=== PATIENT | male | born 1950 | race Asian ===

== ENCOUNTER 2021-11-30 00:45 | Day surgery (SDC) | payer OTHER, SELFPAY ==
[2021-11-16 13:34] VITALS: BMI 23.1
--- NOTE | 2021-11-29 17:38 | PM.HPGS ---
History of Present Illness History of Present Illness Consent: Risks, benefits, and alternatives have been discussed and questions answered. Patient agrees to proceed with procedure. Chief complaint: anemia, Hx of colon cancer Narrative: Simón Joseph is a 71 year old male referred for colon cancer screening. He has a history of colon cancer, having had a sigmoid colon resected in the past. Two polyps removed at the time of his last colonoscopy 4 years ago. He has also been found to be anemic. His hemoglobin is 10.6 now. Iron stores are adequate Review of Systems Review of Systems: All systems reviewed & are unremarkable except as noted in HPI and below PMFSH Past Medical History Medical History Afib Coronary artery disease involving [place] heart without angina pectoris Elevated liver function tests Hyperlipidemia Hyperproteinemia Hypertension Lupus anticoagulant positive Polyp of colon Superior mesenteric artery stenosis Type 2 diabetes mellitus with diabetic neuropathy, without long-term current use of insulin Surgical History Surgical History S/P CABG (coronary artery bypass graft) Family History Family History Father Diabetes mellitus Hypertension Mother Hypertension Social History Social History Smoking status: Current every day smoker Tobacco type: cigars Alcohol intake: never Drinks per week: 2 Substance use: never Substance use type: does not use Living arrangements: with family Gender identity (if verbalized by the patient): Male Spiritual care concerns: No Agree to blood products: Yes Meds Home Medications and Allergies Home Medications Medication Instructions Recorded Confirmed Type blood sugar diagnostic (Contour #100 ea 01/29/19 11/30/21 Rx Test Strips) blood-glucose meter (Contour Meter) #1 ea 01/29/19 11/30/21 Rx atorvastatin 80 mg tablet 80 mg PO DAILY #90 tabs 02/10/19 11/30/21 Rx ascorbic acid (vitamin C) 500 mg 500 mg PO DAILY 04/25/19 11/30/21 History tablet aspirin 81 mg tablet,delayed 81 mg PO DAILY 04/25/19 11/30/21 History release (Enteric Coated Aspirin) cholecalciferol (vitamin D3) 50 2,000 unit PO DAILY 04/25/19 11/30/21 History mcg (2,000 unit) chewable tablet kuypwrnmsxqb-qgxzwggn-yjravk tablet 1 tablet PO DAILY 04/25/19 11/30/21 History ferrous sulfate 325 mg (65 mg See Rx Instructions .Route 09/14/20 11/30/21 Rx iron) tablet .COMPLEX #90 tabs duloxetine 60 mg capsule,delayed See Rx Instructions .Route 10/03/21 11/30/21 Rx release .COMPLEX #90 caps duloxetine 30 mg capsule,delayed See Rx Instructions .Route 10/04/21 11/30/21 Rx release .COMPLEX #90 caps Allergies Allergy/AdvReac Type Severity Reaction Status Date / Time No Known Allergies Allergy Verified 11/30/21 10:56 Exam Const: General: alert Orientation/consciousness: patient oriented x3 Resp: Auscultation: clear to auscultation bilaterally Cardio: Rhythm: regular rhythm GI: GI Palp: Yes Soft to palpation and No Tenderness to palpation present (GI) Neuro: General: patient oriented x3 Assessment and Plan Assessment and plan (1) History of colon cancer: Code(s): Z85.038 - Personal history of other malignant neoplasm of large intestine Status: Acute Assessment and Plan: Colonoscopy with possible biopsy or polypectomy or cautery or injection of substances. (2) Anemia: Code(s): D64.9 - Anemia, unspecified Status: Acute Assessment and Plan: EGD with possible biopsy or dilatation or cautery.
[2021-11-30 10:59] VITALS: BP 154/74; PULSE 92; RESP 16; TEMP 36.6; O2SAT 100
[2021-11-30] MEDS: LACTATED RINGERS 1,000 ML 150 ML IV CONT (11:10)
--- NOTE | 2021-11-30 11:12 | SUR.PREOP ---
PT NOT ON DIABETIC MEDICATION, NO BLOOD GLUCOSE STICK PERFORMED
--- NOTE | 2021-11-30 11:28 | WPDANESEPPF ---
Anes - Initial Pre Proc Eval Procedure: Operation Date: 11/30/21 13:45 Proposed Procedures p Esophagogastroduodenoscopy & Colonoscopy - Lázaro Roach MD Date/Time: 11/30/21 11:28 Surgeon: Lázaro Roach MD Pre Op Diagnosis: anemia, Hx of colon cancer Patient Data Age: 71 Gender: M Height: 1.83 m Weight: 76.9 kg Last Vital Signs Temp 97.8 F 11/30/21 10:59 Pulse 92 11/30/21 10:59 Resp 16 11/30/21 10:59 BP 154/74 H 11/30/21 10:59 Pulse Ox 100 11/30/21 10:59 O2 Del Method Room Air 11/30/21 10:59 Allergies Allergy/AdvReac Type Severity Reaction Status Date / Time No Known Allergies Allergy Verified 11/30/21 10:56 Home Medications Medication Instructions Recorded Confirmed Type blood sugar diagnostic (Contour #100 ea 01/29/19 11/30/21 Rx Test Strips) blood-glucose meter (Contour Meter) #1 ea 01/29/19 11/30/21 Rx atorvastatin 80 mg tablet 80 mg PO DAILY #90 tabs 02/10/19 11/30/21 Rx ascorbic acid (vitamin C) 500 mg 500 mg PO DAILY 04/25/19 11/30/21 History tablet aspirin 81 mg tablet,delayed 81 mg PO DAILY 04/25/19 11/30/21 History release (Enteric Coated Aspirin) cholecalciferol (vitamin D3) 50 2,000 unit PO DAILY 04/25/19 11/30/21 History mcg (2,000 unit) chewable tablet afjqczmpjbgr-qftlqlom-tdwmug tablet 1 tablet PO DAILY 04/25/19 11/30/21 History ferrous sulfate 325 mg (65 mg See Rx Instructions .Route 09/14/20 11/30/21 Rx iron) tablet .COMPLEX #90 tabs duloxetine 60 mg capsule,delayed See Rx Instructions .Route 10/03/21 11/30/21 Rx release .COMPLEX #90 caps duloxetine 30 mg capsule,delayed See Rx Instructions .Route 10/04/21 11/30/21 Rx release .COMPLEX #90 caps Patient hx anesthesia problems: none Family hx anesthesia problems: none Results Review: All pre-operative results and documents have been reviewed as part of the pre-operative evaluation. [facility] Past Medical History Medical History (Updated 11/10/21 @ 09:11 by Conchita Prakash, DO) Afib Coronary artery disease involving [place]wi[place]ayp heart without angina pectoris Elevated liver function tests Hyperlipidemia Hyperproteinemia Hypertension Lupus anticoagulant positive Polyp of colon Superior mesenteric artery stenosis Type 2 diabetes mellitus with diabetic neuropathy, without long-term current use of insulin Surgical History Surgical History (Updated 11/09/21 @ 15:38 by Conchita Prakash, DO) S/P CABG (coronary artery bypass graft) Family History Family History Father Diabetes mellitus Hypertension Mother Hypertension Social History Social History Smoking status: Current every day smoker Tobacco type: cigars Alcohol intake: never Drinks per week: 2 Substance use: never Substance use type: does not use Living arrangements: with family Gender identity (if verbalized by the patient): Male Spiritual care concerns: No Agree to blood products: Yes Anes - Eval Final PreProcedure Day of Procedure 11/30/21 11:28 Patient weight: normal Heart: regular rate and rhythm Lungs: clear to auscultation Airway: Mallampati scale class II Neurological: alert and oriented Last oral intake: >/= 8 hours ASA classification: III Emergent: no Anesthetic plan: proceed Anesthesia type and monitoring: general GIVS and standard monitoring Results Review: All pre-operative results and documents have been reviewed as part of the pre-operative evaluation. Informed Consent: The patient's anesthetic plan and its attendant risks and benefits were discussed with the patient/family/POA. Questions were solicited and answers provided to the satisfaction of the patient/family/POA.
--- NOTE | 2021-11-30 11:54 | SUR.OPER ---
EGD START 1141, END 1144 SIGMOIDOSCOPY START 1151, END 1152
[2021-11-30 11:56] VITALS: BP 122/75; PULSE 74; RESP 22; O2SAT 100
[2021-11-30 12:06] VITALS: BP 132/82; PULSE 73; RESP 18; O2SAT 100
[2021-11-30 12:16] VITALS: BP 145/84; PULSE 73; RESP 17; O2SAT 100
== END 2021-11-30 12:24 | disposition home or self-care (01) ==
PROVIDERS: PCP Family Medicine; Visit Provider Internal Medicine Gastroenterology
PROC: 0DJ08ZZ Inspection of Upper Intestinal Tract, Via Natural or Artificial Opening Endoscopic (ICD-10-PCS; CPT 43235; principal; 2021-11-30 13:45)
DX: Z12.11 Encounter for screening for malignant neoplasm of colon (principal); K21.9 Gastro-esophageal reflux disease without esophagitis; K29.70 Gastritis, unspecified, without bleeding; D64.9 Anemia, unspecified; Z85.038 Personal history of other malignant neoplasm of large intestine; I48.91 Unspecified atrial fibrillation; I25.10 Atherosclerotic heart disease of native coronary artery without angina pectoris; E78.5 Hyperlipidemia, unspecified; I10 Essential (primary) hypertension; E11.40 Type 2 diabetes mellitus with diabetic neuropathy, unspecified; Z95.1 Presence of aortocoronary bypass graft; F17.290 Nicotine dependence, other tobacco product, uncomplicated; Z79.82 Long term (current) use of aspirin
CPT/HCPCS: 43239; G0104; 87081; J2704; J7120

== ENCOUNTER 2024-03-14 01:26 | Day surgery (SDC) | payer MEDICARE, SELFPAY ==
--- NOTE | 2024-03-07 09:48 | PC.NURSE ---
Report to the Outpatient Waiting Room, entrance under the green pavilion located off [facility], at time _10 AM on date _03/14/24 . Planned Procedure Time: _1200 NOON .? Time changes happen often and if your time is changed the preop area will call you the afternoon before. - You and your visitor will be asked to self-screen and do not enter if you have any COVID symptoms. Please call surgeon if you need to reschedule. - A mask is optional within the hospital at this time. Patients may have clear liquids (water, carbonated beverages, clear teas, apple juice) until 3 hours prior to surgery( 9 AM) with a maximum of 20 ounces. - No food from midnight until time of surgery and no smoking. This includes no chewing gum, candy or mints. Take only the following medications with a SIP of water on the morning of surgery: _DULOXETINE,HYDROCODONE IF NEEDED FOR PAIN,METOPROLOL,PREGABALIN DO NOT STOP ANY OF YOUR OTHER PRESCRIPTION MEDICATIONS PRIOR TO SURGERY EXCEPT THE FOLLOWING Medications to discontinue per physician HOLD ALL VITAMINS AND SUPPLEMENTS 3 DAYS PRE OP .LAST DOSE 03/10/24. ___ASPIRIN PER DR JIMENEZ Please no make-up, nail turkmen, hairspray, perfume, deodorant, or body powder the day of surgery.? No jewelry (including any body piercings) or valuables the day of surgery, leave them at home.? Please take a shower or bath the night before, or the morning of, surgery with an antibacterial soap.? Wear comfortable, loose fitting clothing.? Children are encouraged to wear pajamas. - Jewelry must be removed prior to entering the operating room.? Rings and piercings that are not removed may be cut off. - The hospital will not accept responsibility for valuables.? - Please leave all valuables, including medications, at home the day of surgery. If you are going home after surgery, a licensed independent driver must drive you home.? - NO public transportation without another adult if you receive anesthesia. - We recommend that an adult stay with you for 24 hours following discharge. - We also recommend that you do not drive, make important decision, drink alcoholic beverages, or take any drugs that were not prescribed by your health care provider for at least 24 hours after your discharge time. Follow any additional instructions given to you from your surgeon. Telephone instructions given to ___PATIENT and asked if any additional questions and then verbalized understanding. Patient advised to call surgeon office or pre surgery nurse liaison [phone] if any additional questions.
[2024-03-07 10:13] VITALS: BMI 20.3
[2024-03-14] VITALS (8 sets, daily range): BP systolic 124–144; BP diastolic 60–69; PULSE 68–74; RESP 10–18; TEMP 36.3–37.7; O2SAT 98–100
--- OUTSIDE RECORDS SUMMARY | 2024-03-14 01:34 | XMS_ITS | Clinical Summary ---
Author Organization [facility] Address [address] [place] [address] Care Team Providers Care Manufacturing Process Engineer Name Role Phone DwainConchita Primary Care Provider Allergies No known active allergies Medications metFORMIN (GLUCOPHAGE) 1,000 mg tablet Take 1,000 mg by mouth 2 times daily with meals. Active LORazepam (ATIVAN) 0.5 mg tablet Take 0.5 mg by mouth every 6 hours as needed for Anxiety. Active simvastatin (ZOCOR) 20 mg tablet Take 20 mg by mouth daily. Active pregabalin (LYRICA) 100 mg Capsule Take 100 mg by mouth daily. Active traZODone (DESYREL) 50 mg tablet Take 50 mg by mouth daily at bedtime. Active Active Problems Problem Noted Date Diagnosed Date High cholesterol 06/18/2017 DM (diabetes mellitus), type 1 06/18/2017 Family History Medical History Relation Name Comments Diabetes Father High Cholesterol Father Hypertension Father Relation Name Status Comments Father Social History Tobacco Use Types Packs/Day Years Used Date Smoking Tobacco: Former Cigarettes 1 35 0 06/19/1975 - 06/18/2010 Alcohol Use Standard Drinks/Week Comments No 0 (1 standard drink = 0.6 oz pur e alcohol) occasionally Sex and Gender Information Value Date Recorded Sex Assigned at Not on file Legal Sex Male 9:51 AM CDT Gender Identity Not on file Sexual Orientation Not on file Last Filed Vital Signs Vital Sign Reading Time Taken Comments Blood Pressure 139/81 06/18/2017 1:53 PM CDT Pulse 75 06/18/2017 1:53 PM CDT Temperature 36.8 ??C (98.2 ??F) 06/18/2017 1:53 PM CD T Respiratory Rate 18 06/18/2017 1:53 PM CDT Oxygen Saturation 98% 06/18/2017 1:53 PM CDT Inhaled Oxygen Concentration - - Weight 86.6 kg (191 lb) 06/18/2017 1:53 PM CDT Height 182.9 cm (6') 06/18/2017 1:53 PM CDT Body Mass Index 25.9 06/18/2017 1:53 PM CDT Plan of Treatment Health Maintenance Due Date Last Done Comments DIABETES ANNUAL FOOT EXAM 09/17/1969 DIABETES ANNUAL RETINAL EXAM 09/17/1969 DIABETES MICROALBUMIN ANNUAL SCREEN 09/17/1969 LDL CHOLESTEROL ANNUAL 09/17/1969 PNEUMOCOCCAL VACCINE 65+ YEARS (1 of 2 - PCV) 09/17/18 71 COLORECTAL SCREENING 09/17/1996 Colorectal Cancer Screening 09/17/1996 FIT-DNA Q 3 years 09/17/1996 FIT/FOBT Q 1 year 09/17/1996 Flex Sig/CT Colonography Q 5 years 09/17/1996 ZOSTER VACCINE (1 of 2) 09/17/2001 RSV VACCINE (60+ or ) (1 - Risk 60-74 years 1-dose series) 2011 DIABETES HBA1C Q 6 MONTHS 10/06/2022 04/08/2022 INFLUENZA VACCINE (#1) 2023 12/05/2019 DTAP/TDAP/TD VACCINES (2 - Td or Tdap) 12/03/2029 Insurance [facility] [employer] Care Teams Manufacturing Process Engineer Relationship Specialty Start Date End Date Conchita Prakash DO [address] [place] [id number] PCP - General Family Practice 06/18/17
--- OUTSIDE RECORDS SUMMARY | 2024-03-14 01:34 | XMS_ITS | Encounter Summary ---
Author Organization [facility] Address [address] [place] [address]. [place] [address] [place] [address] Care Team Providers Care Marine Scientist Name Role Phone Conchita Prakash DO Primary Care Provider [phone] Zack Mota MD Primary Care Provider [phone] Reason for Visit * Reason Onset Date Comments Hospital Follow Up 12/15/2019 Encounter Details Date Type Department Care Team (Late st Contact Info) Description 12/15/2019 Hospital Follow-up Call [facility] Care Management [address] [place] [address] Christy San, RN Hospital Follow Up Social History Tobacco Use Types Packs/Day Years Used Date Smoking Tobacco: Former Cigarettes Q uit: 02/01/2019 Smokeless Tobacco: Never Alcohol Use Standard Drinks/Week Comments No 0 (1 standard drink = 0.6 oz pur e alcohol) Humiliation, Afraid, Rape, and Kick questionnair e Answer Date Recorded Within the last year, have y ou been afraid of your partner or ex-partner? No 12/04/2019 Within the last year, have y ou been humiliated or emotionally abused in other ways by your partner or ex-partner? No Within the last year, have y ou been kicked, hit, slapped, or otherwise physically hurt by your partner or ex-partner? No 12/04/2019 Within the last year, have y ou been raped or forced to have any kind of sexual activity by your partner or ex-partner? No 12/04/2019 Social Connection and Isolat ion Panel [NHANES] Answer Date Recorded In a typical week, how many times do you talk on the phone with family, friends, or neighbors? More than three times a week 12/04/2019 How often do you get togethe r with friends or relatives? More than three times a week 12/04/2019 How often do you attend chur ch or lutheran services? More than 4 times per year 12/04/2019 Do you belong to any clubs o r organizations such as catholic groups, unions, fraternal or athletic groups, or school groups? No 12/04/2019 How often do you attend meet ings of the clubs or organizations you belong to? Never 12/04/2019 Are you , , di vorced, , never , or living with a partner? 12/04/2019 AUDIT-C Answer Date Recorded Frequency of Alcohol Consumption Never 02/06/2019 Average Number of Drinks Not on file 019 Frequency of Binge Drinking Not on file 01/13 Overall Financial Resource Strain (CARDIA) Answe r Date Recorded How hard is it for you to pa y for the very basics like food, housing, medical care, and heating? Not hard at all 12/04/2019 [facility] - Occupational Stress Questionnaire Answer Date Recorded Do you feel stress - tense, restless, nervous, or anxious, or unable to sleep at night because your mind is troubled all the time - these days? Not at all 12/04/2019 Exercise Vital Sign Answer Date Recorde d On average, how many days pe r week do you engage in moderate to strenuous exercise (like a brisk walk)? 3 days 12/04/2019 On average, how many minutes do you engage in exercise at this level? 40 min 12/04/2019 Hunger Vital Sign Answer Date Recorded Within the past 12 months, y ou worried that your food would run out before you got the money to buy more. Never true 12/04/19 20 Within the past 12 months, t he food you bought just didn't last and you didn't have money to get more. Never true 12/04/2019 PRAPARE - Transportation Answer Date Re corded In the past 12 months, has l ack of transportation kept you from medical appointments or from getting medications? No 11/13 In the past 12 months, has l ack of transportation kept you from meetings, work, or from getting things needed for daily living? No 12/04/2019 Sex and Gender Information Value Date Recorded Sex Assigned at Not on file Legal Sex Male 6:49 PM CDT Gender Identity Not on file Sexual Orientation Not on file COVID-19 Exposure Response Date Recorded In the last month, have you been in contact with someone who was confirmed or suspected to have Coronavirus / COVID-19? No / Unsure 12/04/2019 9:56 PM CDT documented as of this encounter Functional Status * RETIRED Are you deaf or do you have serious difficulty hearing Answer Date of Assessment Author Status No 12/04/2019 6:13 PM CDT Activ e * RETIRED Are you blind or do you have serious difficulty seeing, even when wearing glasses? Answer Date of Assessment Author Status No 12/04/2019 6:13 PM CDT Activ e * Do you have serious difficulty walking or climbing stairs? Answer Date of Assessment Author Status No 12/04/2019 6:13 PM CDT Diamond Lee R N Active * Do you have difficulty dressing or bathing? Answer Date of Assessment Author Status No 12/04/2019 6:13 PM CDT Diamond Lee R N Active * Because of a physical, mental, or emotional condition, do you have difficulty doing errands alone such as visiting a doctor's office or shopping? Answer Date of Assessment Author Status No 12/04/2019 6:13 PM CDT Diamond Lee R N Active documented as of this encounter Mental Status * Because of a physical, mental, or emotional condition, do you have serious difficulty concentrating, remembering, or making decisions? Answer Entry Date Author Status No 12/04/2019 6:13 PM CDT Diamond Lee R N Active documented in this encounter Plan of Treatment Not on file documented as of this encounter Goals Goal Patient Goal Type Associated Problems Recent Progress Patient-Stated? Author HOME WITH General No Vivienne Pompa RN RETURN HOME WITH General No Christy San RN documented as of this encounter Visit Diagnoses Not on filedocumented in this encounter Additional Health Concerns Infection Onset Date Last Indicated Resolved Time COVID-19 Rule Out 03/31/2022 03/31/2022 03/31/2022 12:07 PM MANAGER STRATEGIC ALLIANCES COVID-19 Rule Out 03/31/2022 03/31/2022 03/31/2022 7:28 PM MANAGER STRATEGIC ALLIANCES COVID-19 Rule Out 05/13/2022 05/13/2022 05/13/2022 7:40 PM CDT C. difficile 05/13/2022 05/13/2022 08/03/2022 9:15 AM CDT COVID-19 Rule Out 06/04/2023 06/04/2023 06/04/2023 10:09 PM CDT documented as of this encounter Care Teams Marine Scientist Relationship Specialty Start Date End Date Conchita Prakash DO PCP - General FAMILY PRACTICE 02/17/19 01/29/22 Zack Mota MD [address] [place] [id number] PCP - General FAMILY PRACTICE 01/30/22 documented as of this encounter
--- OUTSIDE RECORDS SUMMARY | 2024-03-14 01:34 | XMS_ITS | Encounter Summary ---
Author Organization [facility] Address [address] [place] [address] Care Team Providers Care Real Estate Site Analyst Name Role Phone Conchita Prakash DO Primary Care Provider + Sherrie Aquino DO Unavailable [phone] Conchita Prakash DO Unavailable [phone] Pepe Campos MD Unavailable [phone] Bety Pillai RN Unavailable [phone] Zack Mota MD Primary Care Provider [phone] Luann CelisW Unavailable [phone] Bayron Patino MD Unavailable [phone] Hao Moscoso MD Unavailable [phone] Shawanda Craig MD Unavailable [phone] Jose Mckenzie MD Unavailable Encounter Details Date Type Department Care Team (Late st Contact Info) Description 07/20/2020 Telephone [facility] - [facility] [address] [place] [address] Transcribed Order, Provider Social History Tobacco Use Types Packs/Day Years Used Date Smoking Tobacco: Former Cigarettes 0.8 40 1 03/25/1978 - 01/22/2019 Cigars Smokeless Tobacco: Never Comments:smokes a cigar on a daily basis Alcohol Use Standard Drinks/Week Comments Yes 1 (1 standard drink = 0.6 oz pur e alcohol) socially Sex and Gender Information Value Date Recorded Sex Assigned at Not on file Legal Sex Male 9:06 PM POKER PROP PLAYER Gender Identity Male 10/24/2021 4:07 PM CDT Sexual Orientation Straight 10/24/2021 4: 07 PM CDT documented as of this encounter Plan of Treatment Not on file documented as of this encounter Visit Diagnoses Not on filedocumented in this encounter Additional Health Concerns Infection Onset Date Last Indicated Resolved Time COVID: Suspected 04/08/2022 04/08/2022 04/08/2022 7:32 PM POKER PROP PLAYER documented as of this encounter Care Teams Real Estate Site Analyst Relationship Specialty Start Date End Date Conchita Prakash DO [address] [place] [id number] PCP - General 07/04/17 02/22/22 Zack Mota MD [address] [place] [id number] PCP - General Family Medicine 02/23/22 Sherrie Aquino DO [address] [place] [address] 02/12/17 Conchita Prakash DO [address] [place] [id number] Family Medicine 07/04/17 Pepe Campos MD [address] [place] [address] Consulting Physician Cardiology 02/09/19 09/19/23 Bety Pillai, RN [address] [facility] [address] [place] [address] SHOP Outpatient Shuttle Buggy Operator 05/06/21 06/02/21 Luann Celis LCSW [address] [facility] Mailstop [id number] [place] [address] SHOP Outpatient Shuttle Buggy Operator 04/26/22 04/29/22 Bayron Patino MD [address] [facility] ([facility] Mailstop [id number] [place] [address] Ice Cream Truck Driver Cardiology 06/13/22 Hao Moscoso MD [address] [facility] [address] [place] [address] Surgeon Surgery 09/05/22 Shawanda Craig MD [address] [facility] [address] [place] [address] Referring Physician Nephrology 09/20/23 [place] [address] [place] [address] Consulting Physician Gastroenterology 09/20/23 documented as of this encounter
--- OUTSIDE RECORDS SUMMARY | 2024-03-14 01:34 | XMS_ITS | Encounter Summary ---
Author Organization [facility] Address [address] [place] [address] Phone Care Team Providers Care [employer] Name Role Phone Conchita Prakash DO Primary Care Provider + Conchita Prakash DO Primary Care Provider + Sherrie Aquino DO Unavailable [phone] Conchita Prakash DO Unavailable [phone] Pepe Campos MD Unavailable [phone] Bety Pillai RN Unavailable [phone] Zack Mota MD Primary Care Provider Luann CelisW Unavailable [phone] Bayron Patino MD Unavailable [phone] Hao Moscoso MD Unavailable [phone] Shawanda Craig MD Unavailable [phone] Jose Mckenzie MD Unavailable Encounter Details Date Type Department Care Team (Latest Contact Info) Description 06/01/2017 Orders Only [facility] Scanning, Provider Social History Tobacco Use Types Packs/Day Years Used Date Smoking Tobacco: Never Assessed Sex and Gender Information Value Date Recorded Sex Assigned at Not on file 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 Gender Identity Male 10/24/2021 4:07 PM CDT Sexual Orientation Straight 10/24/2021 4: 07 PM CDT documented as of this encounter Plan of Treatment Not on file documented as of this encounter Procedures Procedure Name Priority Date/Time Associated Diagnosis Comments SCAN - LABS 06/01/2017 documented in this encounter Results * SCAN - LABS (06/01/2017) us Provider Scanning Final Result documented in this encounter Visit Diagnoses Not on filedocumented in this encounter Additional Health Concerns Infection Onset Date Last Indicated Resolved Time COVID: Suspected 04/08/2022 04/08/2022 04/08/2022 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 documented as of this encounter Care Teams [employer] Relationship Specialty Start Date End Date Conchita Prakash DO [address] [place] [id number] PCP - General Family Medicine 02/12/17 07/03/17 Conchita Prakash DO [address] [place] [address] PCP - General 07/04/17 02/22/22 Zack Mota MD [address] [place] [address] PCP - General Family Medicine 02/23/22 Sherrie Aquino DO [facility] [place] [address] 02/12/17 Conchita Prakash DO [address] [place] [address] Family Medicine 07/04/17 Pepe Campos MD [address] [place] [address] Consulting Physician Cardiology 02/09/19 09/19/23 Bety Pillai, RN [address] [facility] [address] [place] [address] SHOP Outpatient Rug Cleaner 05/06/21 06/02/21 Luann Celis, [facility] [address] [facility] ([facility]) Mailstop [phone] [place] [address] SHOP Outpatient Rug Cleaner 04/26/22 04/29/22 Bayron Patino MD [address] [facility] ([facility]) Mailstop [phone] [place] [address] Neurology Manager Cardiology 06/13/22 Hao Moscoso MD [facility] [address] [place] [address] Surgeon Surgery 09/05/22 Shawanda Craig MD [address] [facility] [address] [place] [address] Referring Physician Nephrology 09/20/23 [place] [address] [place] [address] Consulting Physician Gastroenterology 09/20/23 documented as of this encounter
--- OUTSIDE RECORDS SUMMARY | 2024-03-14 01:34 | XMS_ITS | Clinical Summary ---
Author Organization [facility] Address [address] [place] [address]. [place] [address] [place] [address] Care Team Providers Care Phone Representative Name Role Phone Zack Mota MD Primary Care Provider [phone] Allergies No known active allergies Medications acetaminophen 500 MG tablet Take 2 tablets (1,000 mg total) by mouth every 6 (six) hours as needed for Pain. Active ASCORBIC ACID W/MARYAM HIPS OR Take 500 mg by mouth daily. Active Cholecalciferol 50 MCG (2000 UT) Tab Take 50 mcg by mouth daily. Active albuterol sulfate HFA 108 (90 Base) MCG/ACT inhaler Inhale 2 puffs into the lungs every 4 (four) hours as needed for Wheezing or Shortness of breath. 18 g 3 Active B lllwbhd-C-itnhh acid 0.8 mg (DIALYVITE/NEPHRO- CHERYL) Tab tabletIndications: ESRD (end stage renal disease) ([facility]/HCC HHS/HCC) Take 1 tablet by mouth daily. 30 tablet 3 Active linaGLIPtin (TRADJENTA) 5 MG tablet Take 1 tablet (5 mg total) by mouth daily. Active dapsone 100 MG tablet Take 1 tablet (100 mg total) by mouth daily. Active acyclovir (ZOVIRAX) 200 mg capsule Take 1 capsule (200 mg total) by mouth daily. Active predniSONE (DELTASONE) 10 mg tablet Take 1 tablet (10 mg total) by mouth daily. Active fluticasone-salmet koko (ADVAIR DISKUS) 500-50 MCG/ACT inhaler Inhale 2 puffs into the lungs 2 (two) times daily. Active avacopan 10 MG Cap Take 30 mg by mouth 2 (two) times daily. 3 Active pantoprazole EC (PROTONIX) 40 MG tablet Take 1 tablet (40 mg total) by mouth daily. 30 tablet 4 Active FARXIGA 5 MG Tab Take 1 tablet by mouth daily. Active DULoxetine (CYMBALTA) 60 MG capsule Take 1 capsule (60 mg total) by mouth daily. 4 Active DULoxetine (CYMBALTA) 30 MG capsule Take 1 capsule (30 mg total) by mouth daily. 4 Active fluticasone propionate (FLONASE) 50 MCG/ACT nasal spray 1 spray by Nasal route daily. Active LORazepam (ATIVAN) 0.5 MG tablet Take 1 tablet (0.5 mg total) by mouth nightly as needed. FOR SLEEP 3 Active metoprolol succinate ER (TOPROL-XL) 25 MG 24 hr tablet Take 1 tablet (25 mg total) by mouth daily. Active traMADol (ULTRAM) 50 MG tablet Take 1 tablet (50 mg total) by mouth every 6 (six) hours as needed. Active atorvastatin (LIPITOR) 40 MG tablet Take 1 tablet (40 mg total) by mouth daily. Active olopatadine (PATADAY) 0.2 % SolutionIndication s:Allergic conjunctivitis of left eye Place 1 drop into the left eye daily. 1 mL 4 Active Active Problems Problem Noted Date Diagnosed Date Acute CHF (congestive heart failure) ([facility]) 06/05/2023 Occult blood positive stool 06/05/2023 Acute anemia 06/05/2023 Syncope 05/15/2022 Clostridium difficile infection 05/15/2022 Diffuse pulmonary alveolar hemorrhage 04/08/2022 ESRD (end stage renal disease) ([facility] 04/07/2022 Acute respiratory failure ([facility]) 03/15 Closed pilon fracture of tibia 04/27/2021 Overview (05/15/2022): Added automatically from request for surgery [id number] Multiple pulmonary nodules 08/18/2020 Overview (05/15/2022): Last Assessment & Plan: The usual differential for pulmonary nodule includes primary lung cancer (adenocarcinoma, squamous cell carcinoma, and small cell carcinoma), carcinoid tumor, and metastasis from another source (breast, kidney, the thyroid, bladder, colon, kidney, and melanoma. Benign causes include hemangioma, lipoma, and leiomyoma. Infectious causes such as TB, fungal disease, and round pneumonia must be considered I am concerned about the new mass seen on CT. Plan PET scan to determine FDG avidity He has a long history of tobacco abuse, though no lung cancer in the family. Will require biopsy of the lung if PET avid, would be risky due to the surrounding bronchiectasis and emphysema. Recent PFt's re-reviewed Tobacco abuse 04/14/2020 Overview (05/15/2022): Last Assessment & Plan: unstable Smoking cessation Orthostatic hypotension 12/05/2019 Other emphysema ([facility]) 09/24/2019 Overview (12/05/2019): Last Assessment & Plan: COPD is newly identified. Discussed monitoring symptoms and use of quick-relief medications and contacting us early in the course of exacerbations. Warning signs of respiratory distress were reviewed with the patient. Counseled to avoid exposure to cigarette smoke. Full PFt when available Hyperkalemia 05/05/2019 Primary pauci-immune necroti zing and crescentic glomerulonephritis 05/05/2019 Overview (12/05/2019): Last Assessment & Plan: Continue clinical observation Microscopic polyangiitis ([facility]) 04/20 Overview (12/05/2019): Last Assessment & Plan: Continue medical care and treatment Anemia due to stage 3 chroni c kidney disease ([facility]) 04/12/2019 Overview (12/05/2019): Last Assessment & Plan: Continue clinical observation ATN (acute tubular necrosis) 04/12/2019 Bacterial pneumonia 04/12/2019 Moderate malnutrition ([facility]) 04/09/19 20 Paroxysmal atrial fibrillation ([facility]) 03/18/2019 Overview (12/05/2019): Postop atrial fibrillation Last Assessment & Plan: Continue clinical observation S/P CABG x 5 02/12/2019 Physical deconditioning 02/12/2019 Abnormal cardiovascular stress test 01/17/2019 Overview (02/12/2019): Overview: Added automatically from request for surgery [id number] Atherosclerosis of coronary artery 07/18/2017 Overview (12/05/2019): Overview: History of coronary artery disease per cardiac catheterization on 06/25/2017 at which time he has identified to have 95% stenosis of the mid LAD with 80% stenosis of a large diagonal. Circumflex artery was patent. The RCA was patent. LV function was reduced with global hypokinesis. Patient underwent a complex coronary intervention procedure at [facility] 07/18/2017 with drug-eluting stents to the diagonal/ LAD, a 2.5 x 28 drug- eluting stent was placed in the LAD. A 3.0 x 38 drug-eluting stent was placed from the LAD into the diagonal. proximally the LAD was optimized with a 3.5 x 15 drug-eluting stent followed by a 4.0 x 8 NC balloon. Last Assessment & Plan: Continue medical care and treatment History of coronary artery disease per cardiac catheterization on 06/25/2017 at which time he has identified to have 95% stenosis of the mid LAD with 80% stenosis of a large diagonal. Circumflex artery was patent. The RCA was patent. LV function was reduced with global hypokinesis. Patient underwent a complex coronary intervention procedure at [facility] 07/18/2017 with drug-eluting stents to the diagonal/ LAD, a 2.5 x 28 drug- eluting stent was placed in the LAD. A 3.0 x 38 drug-eluting stent was placed from the LAD into the diagonal. proximally the LAD was optimized with a 3.5 x 15 drug-eluting stent followed by a 4.0 x 8 NC balloon. BP catheterization 01/21/2019 reveals occlusion of the mid LAD stent. 70% in stent narrowing of 1st diagonal. 70% narrowing of small OM 1. Patent OM 2. RCA has 30% distal narrowing , RCA PDA has 70% proximal narrowing Status post bypass surgery x4 with JONES implant to the distal LAD. SVG to diagonal. SVG to circumflex marginal. SVG to the RCA PDA. 01/22/2019 Last Assessment & Plan: Continue medical care and treatment Type 2 diabetes mellitus wit hout complication ([facility]) 07/18/2017 Overview (12/05/2019): Last Assessment & Plan: Continue medical care and treatment Last Assessment & Plan: Continue statin therapy High blood cholesterol 06/18/2017 Other atrophic disorders of skin 02/26/2017 Other skin changes 02/26/2017 Anxiety 09/21/2016 BPH (benign prostatic hyperplasia) 09/14/2016 Essential hypertension 09/12/2016 Overview (12/05/2019): Last Assessment & Plan: Continue medical care and treatment Malignant neoplasm of sigmoid colon ([facility]) 11/23/2014 Overview (02/12/2019): Overview: Malignant neoplasm of sigmoid colon Acute hepatitis C without hepatic coma 5 Contact dermatitis and other eczema 10/09/2014 Allergic dermatitis 12/22/2013 Immunizations Name Administration Dates Next Due Flucelvax 2 YRS+ (Multi-Dose Vial) 12/16/2018 Fluzone 6 Months+ Quad (0.5 mL Prefilled Syringe) 12/05/2019 Fluzone High Dose - >Age 65 (Prefilled Syringe) 12/27/2016 Hepatitis A Vaccine - 2 Dose 07/01/2015,11/25/19 15 Hepatitis B 07/01/2015,01/11/2015,11/24/2014 Hepatitis B Vac Recomb Adj 2 0 Mcg/0.5ml Im Sosy 12/16/2018 Influenza (Generic) 01/27/2019,12/11/2007 Influenza Adult (Generic) 12/16/2015,04/2015,11/24/2014,2014 Pneumococcal (Pneumovax 23) 02/12/2015 Pneumococcal (Prevnar 13) 03/22/2017,08/12/2016, 12/16/2015 Tdap (Adacel) 12/04/2019 Zoster (Zostavax) 03245 Unt/0.65Ml 12/23/2015 Family History Medical History Relation Comments Diabetes Father Hyperlipidemia Father Hypertension Father Relation Status Comments Father Social History Tobacco Use Types Packs/Day Years Used Date Smoking Tobacco: Former Cigarettes Q uit: 03/17/2022 Cigars Smokeless Tobacco: Never Tobacco Cessation:Counseling Given: Yes Alcohol Use Standard Drinks/Week Comments No 0 (1 standard drink = 0.6 oz pur e alcohol) B1300 Health Literacy Answer Date Recor ded How often do you need to hav e someone help you when you read instructions, pamphlets, or other written material from your doctor or pharmacy? Never 06/05/2023 Probiodrug Utilities Answer Date Recorded In the past 12 months has e [employer], oil, or water [employer] threatened to shut off services in your home? No 06/05/2023 Humiliation, Afraid, Rape, and Kick questionnair e Answer Date Recorded Within the last year, have y ou been afraid of your partner or ex-partner? No 06/05/2023 Within the last year, have y ou been humiliated or emotionally abused in other ways by your partner or ex-partner? No Within the last year, have y ou been kicked, hit, slapped, or otherwise physically hurt by your partner or ex-partner? No 06/05/2023 Within the last year, have y ou been raped or forced to have any kind of sexual activity by your partner or ex-partner? No 06/05/2023 Social Connection and Isolat ion Panel [NHANES] Answer Date Recorded In a typical week, how many times do you talk on the phone with family, friends, or neighbors? More than three times a week 03/31/2022 How often do you get togethe r with friends or relatives? More than three times a week 03/31/2022 How often do you attend chur ch or yarsanism services? More than 4 times per year 03/31/2022 Do you belong to any clubs o r organizations such as synagogue groups, unions, fraternal or athletic groups, or school groups? No 03/31/2022 How often do you attend meet ings of the clubs or organizations you belong to? Never 03/31/2022 Are you , , di vorced, , never , or living with a partner? 03/31/2022 AUDIT-C Answer Date Recorded Frequency of Alcohol Consumption Never 02/06/2019 Average Number of Drinks Not on file 019 Frequency of Binge Drinking Not on file 01/13 Overall Financial Resource Strain (CARDIA) Answe r Date Recorded How hard is it for you to pa y for the very basics like food, housing, medical care, and heating? Not hard at all 06/05/2023 PHQ-2 Answer Date Recorded Patient Health Questionnaire-2 Score 0 08/14/2023 [facility] - Occupational Stress Questionnaire Answer Date Recorded Do you feel stress - tense, restless, nervous, or anxious, or unable to sleep at night because your mind is troubled all the time - these days? Not at all 06/05/2023 Exercise Vital Sign Answer Date Recorde d On average, how many days pe r week do you engage in moderate to strenuous exercise (like a brisk walk)? 0 days 06/05/2023 On average, how many minutes do you engage in exercise at this level? 0 min 06/05/2023 Hunger Vital Sign Answer Date Recorded Within the past 12 months, y ou worried that your food would run out before you got the money to buy more. Never true 06/05/19 24 Within the past 12 months, t he food you bought just didn't last and you didn't have money to get more. Never true 06/05/2023 PRAPARE - Transportation Answer Date Re corded In the past 12 months, has l ack of transportation kept you from medical appointments or from getting medications? No 05/14 In the past 12 months, has l ack of transportation kept you from meetings, work, or from getting things needed for daily living? No 06/05/2023 Housing Stability Vital Sign Answer Stephen e Recorded In the last 12 months, was t here a time when you were not able to pay the mortgage or rent on time? Patient refused 05/16/19 In the last 12 months, how many places have you lived? 0 05/15/2022 In the last 12 months, was t here a time when you did not have a steady place to sleep or slept in a half-way (including now)? Patient refused 05/15/2022 Housing Stability Vital Sign Answer Stephen e Recorded In the last 12 months, was t here a time when you were not able to pay the mortgage or rent on time? No 06/05/2023 In the past 12 months, how m any times have you moved where you were living? 1 06/05/2023 At any time in the past 12 m [facility], were you homeless or living in a half-way (including now)? No 06/05/2023 Sex and Gender Information Value Date Recorded Sex Assigned at Not on file Legal Sex Male 6:49 PM CDT Gender Identity Not on file Sexual Orientation Not on file Last Filed Vital Signs Vital Sign Reading Time Taken Comments Blood Pressure 138/77 08/14/2023 4:18 PM CDT Pulse 69 08/14/2023 4:18 PM CDT Temperature 36.8 ??C (98.2 ??F) 08/14/2023 4:18 PM CD T Respiratory Rate 16 08/14/2023 4:18 PM CDT Oxygen Saturation 100% 08/14/2023 4:18 PM CDT Inhaled Oxygen Concentration - - Weight 64 kg (141 lb) 08/14/2023 4:18 PM CDT Height 182.9 cm (6') 08/14/2023 4:18 PM CDT Body Mass Index 19.12 08/14/2023 4:18 PM CDT Plan of Treatment Health Maintenance Due Date Last Done Comments Meningococcal Vaccine (1 - Risk 2-dose series) 09/17/1952 Meningococcal B Vaccine (1 of 5 - Increased Risk) 09/17/1961 Diabetes: Retinopathy Eye Exam 09/17/1969 RSV Immunization or 60+ Years (1 - Risk 60-74 years 1-dose series) 2011 Zoster Vaccines (2 of 3) 02/17/2016 12/23/2015 Annual Medicare Wellness Visit 09/17/2016 Pneumococcal Vaccine: 65+ Years (3 of 3 - PPSV23 or PCV20) 02/13/2020 03/22/2017, 08/12/2016, 12/16/2015, Additional history exists Hemoglobin A1C 10/06/2022 04/08/2022, 03/15, 04/28/2021, Additional history exists ASCVD LDL 04/01/2023 04/01/2022, 0802/2016, 09/12/2016, Additional history exists Lipid Panel 06/21/2023 06/20/2022, 03/15, 05/01/2015, Additional history exists COVID-19 Vaccine ( season) 2023 Influenza Adult (#1) 2023 12/05/2019, 01/27/2019, 12/16/2018, Additional history exists PHQ-2 ([facility] [place]) 02/13/2024 08/14/2023 PHQ-2 ([facility] [place]) 08/13/2024 08/14/2023 DTaP, Tdap and Td Vaccines (2 - Td or Tdap) 12/03/2029 12/04/2019 Hepatitis C Completed 04/20/2022, 10/2022, 04/09/2022, Additional history exists AAA SCREENING Completed 05/13/2022, 03/16, 03/02/2022, Additional history exists Colorectal Cancer Screening Colonoscopy (10 Years) Discontinued 06/08/2023, 06/08/2023, RSV Immunizations Under 20 Months Aged Out No longer eligible based on patient's age to complete this topic Goals Goal Patient Goal Type Associated Problems Recent Progress Patient-Stated? Author HOME WITH General No Vivienne Pompa, RN RETURN HOME WITH General No Christy San, RN Health - patient able to perform ADLs independently Lifestyle No Holden Terrell, field artillery crewmember - family caregiver with be involved in care transitions and discharge planning Lifestyle No Bonnie Rice, computer equipment repairer Procedure Name Priority Date/Time Associated Diagnosis Comments COLONOSCOPY 06/08/2023 10:[address] ABD+PEL WO CON STAT 05/13/2022 8:1 3 PM CDT HEPATITIS C ANTIBODY Routine 04/02/2022 7:04 AM METAL MACHINIST LIPID PANEL Routine 04/01/2022 6:46 AM METAL MACHINIST HEMOGLOBIN, GLYCOSYLATED Routine 04/01/2022 6:46 AM METAL MACHINIST from Last 3 Months or Most Recently Relevant to Health Maintenance Results * Colonoscopy (06/08/2023 10:44 AM CDT) Dmitri RANKIN GI PROCEDURE ORDERAB LES Final Result * CT ABD+PEL WO CON (05/13/2022 8:13 PM CDT) Anatomical Region Laterality Modality Abdomen Computed Tomogra phy 05/13/2022 8:41 PM CDT Impressions 05/13/2022 8:46 PM CDT Impression: 1. Significant wall thickening and inflammatory stranding involving the entire colon. Findings are consistent with colitis, possibly infectious or inflammatory. No perforation or abscess noted. 2. Bilobed cystic structure identified at the distal aspect of the pancreatic tail and anterior to the spleen as described. This is of uncertain etiology but could represent a cystic neoplasm such as IPMN. Assessment with a contrast-enhanced MRI of the abdomen is recommended as an outpatient. 3. Significant interstitial fibrotic changes of the lung bases. 4. Uncomplicated cholelithiasis. Referred By: ?? Interpreted By: Abisai Burnett MD, 05/13/2022 8:41 PM Narrative 05/13/2022 8:46 PM CDT Examination: CT abdomen and pelvis without IV contrast. Clinical Information: Diarrhea, shortness of breath, syncope. Comparison: No comparison. Technique: IV contrast: None Oral contrast: None. Technical comments: Standard technique. Dose reduction: This CT exam was performed using one or more of the following dose reduction techniques: Automated exposure control, adjustment of the mA and/or kV according to patient size, and/or use of iterative reconstruction technique. Findings: LOWER CHEST Heart is normal in size. Extensive interstitial fibrotic changes of the lung bases. No pleural or pericardial effusions. UPPER ABDOMEN Liver and bile ducts: Normal in size and contour. No biliary dilatation. Gallbladder: Small stones are present within the gallbladder. No gallbladder wall thickening or pericholecystic fluid. Pancreas: No inflammatory process or ductal dilation. A bilobed cystic structure identified at the distal tail the pancreas and anterior to the spleen measuring 5.6 x 4.1 cm axially (series 2 image 46). This is uncertain in etiology. Spleen: Normal in size and contour. RETROPERITONEUM Adrenals: Negative. Kidneys: Negative. Lymph nodes: No lymphadenopathy in the abdomen or pelvis. BOWEL AND PERITONEUM Bowel: No bowel obstruction. There is significant wall thickening and inflammatory stranding involving the entire colon consistent with pancolitis. No definite perforation or abscess. Surgical anastomosis seen at the rectosigmoid junction. Free air or fluid: Trace free fluid is seen within the pelvis, favored reactive. VASCULATURE Atherosclerotic calcification of the abdominal aorta without aneurysm. PELVIS No abnormality. BONES/SOFT TISSUES Multilevel spondylosis. No acute osseous abnormality. Procedure Note Abisai Burnett MD - 05/13/2022 Examination: CT abdomen and pelvis without IV contrast. Clinical Information: Diarrhea, shortness of breath, syncope. Comparison: No comparison. Technique: IV contrast: None Oral contrast: None. Technical comments: Standard technique. Dose reduction: This CT exam was performed using one or more of thefollowing dose reduction techniques: Automated exposure control,adjustment of the mA and/or kV according to patient size, and/or use ofiterative reconstruction technique. Findings: LOWER CHEST Heart is normal in size. Extensive interstitial fibrotic changes of thelung bases. No pleural or pericardial effusions. UPPER ABDOMEN Liver and bile ducts: Normal in size and contour. No biliary dilatation. Gallbladder: Small stones are present within the gallbladder. Nogallbladder wall thickening or pericholecystic fluid. Pancreas: No inflammatory process or ductal dilation. A bilobed cysticstructure identified at the distal tail the pancreas and anterior to thespleen measuring 5.6 x 4.1 cm axially (series 2 image 46). This isuncertain in etiology. Spleen: Normal in size and contour. RETROPERITONEUM Adrenals: Negative. Kidneys: Negative. Lymph nodes: No lymphadenopathy in the abdomen or pelvis. BOWEL AND PERITONEUM Bowel: No bowel obstruction. There is significant wall thickening andinflammatory stranding involving the entire colon consistent withpancolitis. No definite perforation or abscess. Surgical anastomosis seenat the rectosigmoid junction. Free air or fluid: Trace free fluid is seen within the pelvis, favoredreactive. VASCULATURE Atherosclerotic calcification of the abdominal aorta without aneurysm. PELVIS No abnormality. BONES/SOFT TISSUES Multilevel spondylosis. No acute osseous abnormality. Impression: 1. Significant wall thickening and inflammatory stranding involving theentire colon. Findings are consistent with colitis, possibly infectious orinflammatory. No perforation or abscess noted. 2. Bilobed cystic structure identified at the distal aspect of thepancreatic tail and anterior to the spleen as described. This is ofuncertain etiology but could represent a cystic neoplasm such as IPMN.Assessment with a contrast-enhanced MRI of the abdomen is recommended asan outpatient. 3. Significant interstitial fibrotic changes of the lung bases. 4. Uncomplicated cholelithiasis. Referred By: Interpreted By: Abisai Burnett MD, 05/13/2022 8:41 PM Roland Nguyen MD CT Final Result * (ABNORMAL) HEPATITIS C ANTIBODY W/REFLEX (04/02/2022 7:04 AM METAL MACHINIST) Pathologist [facility] HEPATITIS C AB REACTIVE(A ) NON-REACTI VE 04/02/2022 9:48 AM METAL MACHINIST [facility] 04/02/2022 7:04 AM METAL MACHINIST Abisai Gaffney MD LABORATORY Final Result [facility] [address] [place] [address], [place] [phone] * (ABNORMAL) HEMOGLOBIN, GLYCOSYLATED (04/01/2022 6:46 AM METAL MACHINIST) [facility] 7.0(H) <5.7 % 04/01/2022 9:25 AM [facility] Comment: ADA GUIDELINES 2010 5.7 TO 6.4% INCREASED RISK OF DIABETES > OR = 6.5% CONSISTENT WITH DIABETES ESTIMATED AVG GLUCOSE 154 mg/dL 04/01/2022 9:25 AM [facility] 04/01/2022 6:46 AM METAL MACHINIST us Kiley Jason Bishop PLASTER BLOCK [facility]ER LABORATORY Final Resul t [facility] [address] [place] [address], * (ABNORMAL) LIPID PANEL (04/01/2022 6:46 AM METAL MACHINIST) Pathologist [facility] CHOLESTEROL 103 <200 MG/DL 04/01/2022 8:26 AM [facility] TRIGLYCERIDES 145 <150 MG/DL 04/01/2022 8:26 AM [facility] HDL 22(L) >40.0 MG/DL 04/01/2022 8:26 AM [facility] LDL (CALCULATED) 52 <100 MG/DL 04/01/2022 8:26 AM [facility] NON HDL CHOLESTEROL 81 <130 MG/DL 04/01/2022 8:26 AM [facility] CHOL/HDL RATIO 4.7(H) 0.0 - 4.5 04/01/2022 8:26 AM [facility] VLDL CALCULATION 29 5 - 55 MG/DL 04/01/2022 8:26 AM [facility] LIPID INTERPRETATION 04/01/2022 8:26 AM [facility] Comment: NIH CONCENSUS REPORT RECOMMENDATIONS: ?ADULT ?CHILD ??LOW RISK: ?CHOLESTEROL ? <200 ? <170 ?TRIGLYCERIDE ?<150 ?--- ?HDL ? >=60 ?--- ?LDL ? <100 ? <110 ??BORDERLINE: ?CHOLESTEROL ? 200-239 ?? 170-199 ?TRIGLYCERIDE ?150-199 ? --- ?HDL ?40-59 ?--- ?LDL ? 100-159 ?? 110-129 ??HIGH RISK: ?CHOLESTEROL ? >=240 ?>=200 ?TRIGLYCERIDE ?>=200 ? --- ?HDL ?<40 ?--- ?LDL ? >=160 ?>=130 04/01/2022 6:46 AM METAL MACHINIST us Kiley Alas [facility] LABORATORY Final Resul t Performing Organization Address City/[facility]/ZIP Co de Phone Number [facility] [address] [place] [address], [place] [phone] from Last 3 Months or Most Recently Relevant to Health Maintenance Insurance Member Subscriber Plan / Payer (Ef fective 2016-Present) Name:Simón Joseph Relation to Subscriber:Self Name:JakeSimón Payer ID:Not on file Type:Not on file Address: [address] [facility] Member Subscriber Plan / Payer (Ef fective 2016-Present) Name:Simón Joseph Relation to Subscriber:Self Name:Jake Simón Fox Payer ID:Not on file Type:Not on file Address: [address] [facility] Advance Directives Documents on File Type Date Recorded Patient Banquet Set Up Person Expl anation Advance Directives and Living Will 04/10/2022 1:43 PM 04/04/2022 [facility]MERLY [facility] * Full Code (Latest Code Status on File) Date Activated Date Inactivated Comments 06/05/2023 5:47 AM 06/10/2023 1:11 PM * Full Code Date Activated Date Inactivated Comments 05/15/2022 7:49 PM 05/20/2022 4:35 PM * Full Code Date Activated Date Inactivated Comments 05/15/2022 1:26 PM 05/15/2022 7:31 PM * Full Code Date Activated Date Inactivated Comments 04/04/2022 3:03 PM 04/08/2022 12:20 PM * DNR Date Activated Date Inactivated Comments 04/03/2022 4:58 PM 04/04/2022 3:03 PM Care Teams Phone Representative Relationship Specialty Start Date End Date Zack Mota MD [address] [place] [id number] PCP - General FAMILY PRACTICE 01/30/22
--- OUTSIDE RECORDS SUMMARY | 2024-03-14 01:34 | XMS_ITS | Encounter Summary ---
Author Organization Formerly [facility] Address [address] [place] [address] Care Team Providers Care Induction Coordination Engineer Name Role Phone Sherrie Aquino DO Unavailable [phone] Conchita Prakash DO Unavailable Pepe Campos MD Unavailable Zack Mota MD Primary Care Provider [phone] Bayron Patino MD Unavailable Hao Moscoso MD Unavailable [phone] Shawanda Craig MD Unavailable [phone] Jose Mckenzie MD Unavailable Encounter Details Date Type Department Care Team (Late st Contact Info) Description 10/25/2022 [facility] [address] [facility] [address] [place] [address] Ravi Moscoso MD [address] [facility] [address] [place] [address] Social History Tobacco Use Types Packs/Day Years Used Date Smoking Tobacco: Every Day Cigars Started: 1970 Passive Smoke Exposure: Past Smokeless Tobacco: Never Comments:smokes 2 cigars on a daily basis/stopped smoking cigarettes 2007 Alcohol Use Standard Drinks/Week Comments Yes 1 (1 standard drink = 0.6 oz pur e alcohol) socially Social Connection and Isolat ion Panel [NHANES] Answer Date Recorded In a typical week, how many times do you talk on the phone with family, friends, or neighbors? More than three times a week 05/06/2021 How often do you get togethe r with friends or relatives? More than three times a week 05/06/2021 How often do you attend chur ch or jewish services? More than 4 times per year 05/06/2021 Do you belong to any clubs o r organizations such as voodoo groups, unions, fraternal or athletic groups, or school groups? No 05/06/2021 How often do you attend meet ings of the clubs or organizations you belong to? Never 05/06/2021 Are you , , di vorced, , never , or living with a partner? 05/06/2021 AUDIT-C Answer Date Recorded Q1: How often do you have a drink containing alcohol? Never 09/05/2022 Q2: How many drinks containi ng alcohol do you have on a typical day when you are drinking? Patient does not drink Q3: How often do you have si x or more drinks on one occasion? Never 09/05/2022 Overall Financial Resource Strain (CARDIA) Answe r Date Recorded How hard is it for you to pa y for the very basics like food, housing, medical care, and heating? Not hard at all 05/06/2021 Hunger Vital Sign Answer Date Recorded Within the past 12 months, y ou worried that your food would run out before you got the money to buy more. Never true 05/10/19 23 Within the past 12 months, t he food you bought just didn't last and you didn't have money to get more. Never true 05/09/2022 PRAPARE - Transportation Answer Date Re corded In the past 12 months, has l ack of transportation kept you from medical appointments or from getting medications? No 04/13 In the past 12 months, has l ack of transportation kept you from meetings, work, or from getting things needed for daily living? No 05/06/2021 Housing Stability Vital Sign Answer Stephen e Recorded In the last 12 months, was t here a time when you were not able to pay the mortgage or rent on time? No 05/06/2021 In the last 12 months, how many places have you lived? 1 05/06/2021 In the last 12 months, was t here a time when you did not have a steady place to sleep or slept in a mcc (including now)? No 05/06/2021 Personal Safety Answer Date Recorded Have you ever been in or are you currently in a harmful physical or emotional relationship or is someone making you feel afraid or unsafe? Denies 09/05/2022 Sex and Gender Information Value Date Recorded Sex Assigned at Not on file Legal Sex Male 9:06 PM [employer] Gender Identity Male 10/24/2021 4:07 PM CDT Sexual Orientation Straight 10/24/2021 4: 07 PM CDT documented as of this encounter Plan of Treatment Not on file documented as of this encounter Visit Diagnoses Not on filedocumented in this encounter Care Teams Induction Coordination Engineer Relationship Specialty Start Date End Date Zack Mota MD [address] [place] [phone] PCP - General Family Medicine 02/23/22 Sherrie Aquino DO [address] [place] [address] 02/12/17 Conchita Prakash DO [address] [place] [id number] Family Medicine 07/04/17 Pepe Campos MD [address] [place] [phone] Consulting Physician Cardiology 02/09/19 09/19/23 Bayron Patino MD [address] [place] [phone] [employer] Faculty Cardiology 06/13/22 Hao Moscoso MD [address] [facility] [address] [place] [address] Surgeon Surgery 09/05/22 Shawanda Craig MD [address] [facility] [address] [place] [address] Referring Physician Nephrology 09/20/23 [place] [address] [place] [address] Consulting Physician Gastroenterology 09/20/23 documented as of this encounter
--- OUTSIDE RECORDS SUMMARY | 2024-03-14 01:34 | XMS_ITS | Clinical Summary ---
Author Organization Formerly [facility] Address [address] [place] [address] Care Team Providers Care Multimedia Project Manager Name Role Phone Sherrie Aquino DO Unavailable [phone] Conchita Prakash DO Unavailable [phone] Zack Mota MD Primary Care Provider [phone] Bayron Patino MD Unavailable [phone] Hao Moscoso MD Unavailable [phone] Shawanda Craig MD Unavailable [phone] Jose Mckenzie MD Unavailable Allergies No known active allergies Medications ascorbic acid (ascorbic acid with elvis hips) 500 mg tablet,chewableIndic ations:Vitamin Deficiency Prevention Take 1 tablet/chew tab (500 mg total) by mouth daily 01/30/20 19 Active cholecalciferol (Vitamin D3) 2,000 unit tabletIndications:Pr evention of Vitamin D Deficiency Take 1 tablet (2,000 Units total) by mouth daily 01/30/20 19 Active folic acid/multivit-min/maurizio tein (CENTRUM SILVER ORAL)Indications:Vit agosto Deficiency Prevention Take 1 tablet by mouth daily. Indications: Treatment To Prevent Vitamin Deficiency 01/30/20 Active blood-glucose meter kit 1 kit 3 (three) times a day 1 kit 04/25/19 Active avacopan 10 mg capsule Take 30 mg by mouth 2 (two) times a day 60 capsule 2 04/25/19 Active epoetin deyvi-epbx (RETACRIT) (10,000 unit/mL) solutionIndications: ESRD on Dialysis Inject 1 mL (10,000 Units total) under the skin once a week 4 mL 04/26/19 Active Additional Information Patient taking differently:10,000 Units subcutaneous Weekly,Indications: ESRD on Dialysis, pt thinks he receives at dialysis, Informant: Self, Reported on 01/30/2024 sevelamer (RENVELA) 800 mg tabletIndications:Re nal Osteodystrophy with Hyperphosphatemia Take 1 tablet (800 mg total) by mouth 3 (three) times a day with meals 90 tablet 04/26/[address] (PROTONIX) 40 mg EC tabletIndications:St ress Ulcer Prophylaxis Take 1 tablet (40 mg total) by mouth daily 30 tablet 04/27/19 Active Additional Information Patient taking differently:40 mg oralAs needed, Indications: Stress Ulcer Prophylaxis, Informant: Self, Reported on 01/30/2024 fluticasone propion-salmeteroL (ADVAIR HFA) 230-21 mcg/actuation inhaler Inhale 2 puffs 2 (two) times a day Rinse mouth with water after use. Do not swallow. 1 each 04/26/19 Active Additional Information Patient taking differently:2 puff inhalationAs needed, Rinse mouth with water after use. Do not swallow., Informant: Self, Reported on 01/30/2024 linaGLIPtin (TRADJENTA) 5 mg tabletIndications:ty pe 2 diabetes mellitus Take 1 tablet (5 mg total) by mouth daily 30 tablet 04/26/19 Active aspirin 81 mg enteric coated tablet Take 1 tablet (81 mg total) by mouth daily 90 tablet 3 06/21/19 Active dapagliflozin (FARXIGA) 5 mg tablet Take 1 tablet (5 mg total) by mouth daily Active traMADoL (ULTRAM) 50 mg tablet Take 1 tablet (50 mg total) by mouth every 6 (six) hours as needed for pain or other 07/23/20 23 Active albuterol HFA (PROVENTIL HFA,VENTOLIN HFA,PROAIR HFA) 90 mcg/actuation inhaler Inhale 2 puffs every 4 (four) hours as needed for wheezing or shortness of breath 10/03/19 23 Active fluticasone propionate (FLONASE) 50 mcg/actuation nasal spray Administer 2 sprays into each nostril as needed for rhinitis or allergies 12/08/19 23 Active atorvastatin (LIPITOR) 40 mg tablet TAKE 1 TABLET BY MOUTH EVERY DAY 90 tablet 3 03/21/19 24 Active metoprolol XL (TOPROL-XL) 25 mg extended release tablet TAKE 1 TABLET (25 MG TOTAL) BY MOUTH DAILY. 90 tablet 3 04/13/19 24 025 Active pregabalin (LYRICA) 25 mg capsule Take 1 capsule (25 mg total) by mouth daily 09/10/19 24 Active olopatadine (PATADAY) 0.2 % ophthalmic solution Administer 1 drop into affected eye(s) as needed for allergies 08/14/[address] (CYMBALTA) 30 mg capsule Take 1 capsule (30 mg total) by mouth daily 09/09/19 24 Active HYDROcodone-acetamin ophen (NORCO) 5-325 mg per tablet TAKE 1 TABLET BY MOUTH ONCE DAILY AT BEDTIME NEEDED FOR PAIN 09/10/19 24 Active alpha lipoic acid 600 mg capsule Take by mouth A ctive Active Problems Problem Noted Date Diagnosed Date Cancer ([facility]) 06/13/2022 Clostridium difficile infection 05/15/2022 06/13/2022 Syncope 05/15/2022 06/13/2022 Granulomatosis with polyangiitis 04/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 He recently underwent thrombectomy in October 02, 2023. He denies any issues utilizing his AV graft. Av duplex scan reveals patent stents patent AV graft. Elevated velocities are noted to mid graft. Plan: Recommend left upper extremity AV fistulogram with possible intervention. Risks of the procedure communicated with the patient to include bleeding, infection, injury, further surgery, limb loss and . Patient voices understanding of these risks and wishes to proceed. -Recommend patient to continue utilizing AV graft for dialysis until scheduled procedure. Assessment & Plan (10/05/2023 11:29 AM CDT): Status post thrombectomy 09/21/2023. Patient is dialyzing well sutures are intact incision is healed sutures removed in the office today. Follow up in 3 months for routine surveillance with an AV duplex. Assessment & Plan (09/20/2023 3:16 PM CDT): Thrombosed left brachial axillary graft last dialyzed Sunday2023. Current potassium 4.7. Discussed the patient with Dr. Moscoso. Thrombectomy scheduled tomorrow. Discussed procedure with the patient and answered all questions at this time. He is agreeable wishes to proceed. Assessment & Plan (05/07/2023 2:44 PM CDT): He has stopped HD per his wishes To see PCP again tomorrow Assessment & Plan (12/26/2022 12:02 PM DICE TABLE OPERATOR): Impression: Patient is being dialyzed through a left brachial axillary AV graft without complications. Audible bruit and palpable thrill noted on exam. Av duplex reveals a patent graft. Plan: Continue utilizing left upper extremity AV graft for dialysis as per Nephrology. - patient to follow-up in 3 months for re-evaluation with repeat AV scan. Encouraged patient to make a sooner appointment if there is any complications during dialysis. Assessment & Plan (11/07/2022 1:34 PM CDT): Risks benefits alternatives to right chest wall tunneled dialysis catheter removal discussed, risks including bleeding, infection, need for further surgery. He wished to proceed. See procedure note. Assessment & Plan (09/19/2022 12:25 PM CDT): Impression: Patient is status post left brachial axillary AV graft creation. Patient is being dialyzed through a left-sided Perma cath without any complications. Audible bruit and palpable thrill noted to AV graft. Patient remains intact to left antecubital fossa with no concern for infection. Plan: Sutures removed at bedside. -patient may start utilizing left brachial axillary AV graft tomorrow 09/20/2022. -we will have patient follow-up in 2-3 weeks for re-evaluation for Perma catheter removal if there are no complications during dialysis such as prolonged bleeding after decannulation or high venous pressures. Patient voices understanding. Assessment & Plan (07/17/2022 10:23 AM CDT): Hx of ESRD on HD through a right sided IJ catheter, is now needing evaluation for permanent access creation. He is right arm dominant but writes with his left hand. Vein mapping done shows an open axillary vein bilaterally. Veins are not sizeable for fistula creation. Discussed procedure for graft creation and all of its potential risks. Due to patients extensive cardiac history he will need cardiac clearance with his lacing string cutter Dr. Patino. Answered all questions at this time. Discussed the pt with Dr. Moscoso. Acute respiratory failure 03/31/2022 Closed displaced pilon fract ure of right tibia, initial encounter 05/04/2021 Closed displaced pilon fracture of right tibia 0 04/27/2021 Overview (04/28/2021): Added automatically from request for surgery [id number] Closed displaced pilon fracture of right tibia 0 04/27/2021 Multiple pulmonary nodules 08/18/2020 Assessment & Plan (09/12/2021 3:10 PM CDT): The usual differential for pulmonary nodule includes [...] surrounding bronchiectasis and emphysema. Recent PFt's re-reviewed Assessment & Plan (02/23/2021 12:52 PM DICE TABLE OPERATOR): The usual differential for pulmonary nodule includes primary lung cancer (adenocarcinoma, squamous cell carcinoma, and small cell carcinoma), carcinoid tumor, and metastasis from another source (breast, kidney, the thyroid, bladder, colon, kidney, and melanoma. Benign causes include hemangioma, lipoma, and leiomyoma. Infectious causes such as TB, fungal disease, and round pneumonia must be considered plan CT in June 2021 Assessment & Plan (08/18/2020 12:51 PM CDT): Given the size of the lesion, very little can be discerned radiographically. I recommend watchful waiting of this abnormality; serial imaging to have follow any potential growth. If the lesion regresses, it is unlikely to be a malignant process. The lesion could certainly remain stable in size and character suggest a scar or some congenital abnormality. If the lesion grows consideration for a biopsy or resection would be indicated Tobacco abuse 04/14/2020 Assessment & Plan (04/17/2021 7:39 AM DICE TABLE OPERATOR): unstable Smoking cessation Assessment & Plan (04/14/2020 12:38 PM DICE TABLE OPERATOR): The detrimental effects of tobacco use were discussed with the patient. We discussed that smoking is a major risk factor for heart attacks, strokes, chronic obstructive pulmonary disease, and cancer. The importance of discontinuing the use of tobacco was discussed with the patient. Methods to aid in tobacco cessation including the cold Melville method, nicotine replacement therapy, and pharmacologic therapy were discussed. Electronic cigarettes and acupuncture were also discussed. Plan yearly CT lung screening evaluation Orthostatic hypotension 12/05/2019 Other emphysema 09/24/2019 Assessment & Plan (10/30/2022 3:34 PM CDT): Mild COPD Quit smoking years ago Stable symptoms at this time Continue with prn albuterol Assessment & Plan (04/14/2020 12:37 PM DICE TABLE OPERATOR): COPD is newly identified. Discussed monitoring symptoms and use of quick-relief medications and contacting us early in the course of exacerbations. Warning signs of respiratory distress were reviewed with the patient. Full PFT's Assessment & Plan (09/24/2019 1:00 PM CDT): COPD is newly identified. Discussed monitoring symptoms and use of quick-relief medications and contacting us early in the course of exacerbations. Warning signs of respiratory distress were reviewed with the patient. Counseled to avoid exposure to cigarette smoke. Full PFt when available Other emphysema 09/24/2019 Overview (04/17/2021): Last Assessment & Plan: COPD is newly identified. Discussed monitoring symptoms and use of quick-relief medications and contacting us early in the course of exacerbations. Warning signs of respiratory distress were reviewed with the patient. Counseled to avoid exposure to cigarette smoke. 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 Jolley. 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 Assessment & Plan (04/17/2021 7:40 AM DICE TABLE OPERATOR): Stable Continue renal assessment Assessment & Plan (10/16/2019 12:30 PM CDT): Continue clinical observation Assessment & Plan (06/23/2019 8:24 AM CDT): Continue nephrologic evaluation ATN (acute tubular necrosis) ([facility]) 0 Anemia due to stage 3 chronic kidney disease Overview (04/17/2021): Last Assessment & Plan: Continue clinical observation Glomerulonephritis 04/11/2019 Assessment & Plan (04/20/2020 10:20 AM DICE TABLE OPERATOR): Stable Continue clinical observation Moderate malnutrition ([facility]/HCC) 04/09/2019 Paroxysmal atrial fibrillation ([facility]/HCC) 020 Overview (03/18/2019): Postop atrial fibrillation Assessment & Plan (04/17/2021 7:40 AM DICE TABLE OPERATOR): Stable EKG Assessment & Plan (10/16/2019 12:31 PM CDT): Continue clinical observation Assessment & Plan (06/23/2019 8:25 AM CDT): Continue clinical observation Assessment & Plan (05/15/2019 10:02 AM CDT): Anticoagulation and amiodarone therapy Assessment & Plan (03/18/2019 1:32 PM DICE TABLE OPERATOR): EKG Paroxysmal atrial fibrillation ([facility]) 020 Overview (04/17/2021): Postop atrial fibrillation Last Assessment & Plan: Continue clinical observation S/P CABG x 5 02/12/2019 Abnormal cardiovascular stress test 01/17/2019 Overview (01/17/2019): Added automatically from request for surgery [id number] Abnormal cardiovascular stress test 01/17/2019 Overview (04/17/2021): Overview: Added automatically from request for surgery [id number] CAD (coronary artery disease) 07/18/2017 Overview (03/18/2019): History of coronary artery disease per cardiac catheterization on 06/25/2017 at which time he has identified to have 95% stenosis of the mid LAD with 80% stenosis of a large diagonal. Circumflex artery was patent. The RCA was patent. LV function was reduced with global hypokinesis. Patient underwent a complex coronary intervention procedure at [facility] 07/18/2017 with drug-eluting stents to the diagonal/ [...] marginal. SVG to the RCA PDA. 01/22/2019 Assessment & Plan (04/17/2021 7:39 AM DICE TABLE OPERATOR): Stable Continue Lipitor, aspirin Assessment & Plan (04/20/2020 10:20 AM DICE TABLE OPERATOR): Stable Continue aspirin, Lipitor Assessment & Plan (10/16/2019 12:30 PM CDT): Continue medical care and treatment Assessment & Plan (06/23/2019 8:24 AM CDT): Continue present medical care and treatment Assessment & Plan (05/15/2019 10:02 AM CDT): Continue medical care and treatment Assessment & Plan (03/18/2019 1:22 PM DICE TABLE OPERATOR): Continue medical care and treatment Assessment & Plan (12/16/2018 8:03 AM DICE TABLE OPERATOR): Continue medical care and treatment Assessment & Plan (07/01/2018 8:00 AM CDT): Continue medical care and treatment Assessment & Plan (11/24/2017 8:35 AM CDT): Continue medical care and treatment Assessment & Plan (08/21/2017 3:02 PM CDT): Continue Plavix aspirin protocol. Assessment & Plan (07/19/2017 10:37 AM CDT): S/p cardiac cath with YOUNG x2 to LAD. No complications post procedure --Continue ASA indefinitely & Plavix 75mg daily for 1 year --Start Metoprolol 12.5mg daily --Defer MAXIME inhibitor to outpatient providers --Holding Metformin today post cath --Smoking cessation Assessment & Plan (07/18/2017 8:44 PM CDT): [facility] 06/2017 with 95-99% LAD leision near large diag. S/p YOUNG x 2 to LAD, and PCTA to Diag/LAD. Concerning for significant CAD. -Continue ASA. Start atorvastatin 80. Continue plavix x 1 year at least. -Check BMP/CBC as per post PCI protocol Type 2 diabetes mellitus with hyperlipidemia 07/2017 Assessment & Plan (07/17/2022 9:38 AM CDT): Diabetes being controlled with diet and medications. Continue current therapy. Assessment & Plan (04/17/2021 7:40 AM DICE TABLE OPERATOR): Stable Lipitor, aspirin Assessment & Plan (04/20/2020 10:20 AM DICE TABLE OPERATOR): Stable Continue Lipitor control of diabetes Assessment & Plan (10/16/2019 12:30 PM CDT): Continue statin therapy Assessment & Plan (06/23/2019 8:24 AM CDT): Continue present medical care and treatment Assessment & Plan (05/15/2019 10:02 AM CDT): Continue medical care and treatment Assessment & Plan (03/18/2019 1:23 PM DICE TABLE OPERATOR): Continue medical care and treatment Assessment & Plan (12/16/2018 8:03 AM DICE TABLE OPERATOR): Continue medical care and treatment Assessment & Plan (07/01/2018 8:00 AM CDT): Continue medical care and treatment Assessment & Plan (11/24/2017 8:32 AM CDT): Continue medical care and treatment Assessment & Plan (07/19/2017 10:38 AM CDT): Blood sugars controlled --Holding metformin today, restart tomorrow Assessment & Plan (07/18/2017 8:44 PM CDT): Hold metformin. SSI low dose. DM diet HLD (hyperlipidemia) 07/18/2017 Assessment & Plan (01/25/2024 11:55 AM DICE TABLE OPERATOR): Impression: Chronic and stable. Plan: Continue atorvastatin. Assessment & Plan (09/20/2023 3:17 PM CDT): Continue statin therapy Assessment & Plan (07/17/2022 9:38 AM CDT): Continue Lipitor Assessment & Plan (04/17/2021 7:40 AM DICE TABLE OPERATOR): Stable Continue Lipitor, aspirin Assessment & Plan (07/19/2017 10:39 AM CDT): Change Simvastatin to Atorvastatin 80mg hs HTN (hypertension) 07/18/2017 Assessment & Plan (09/20/2023 3:17 PM CDT): Continue antihypertensives Assessment & Plan (07/17/2022 9:39 AM CDT): Stable chronic hypertension, continue metoprolol, Assessment & Plan (04/17/2021 7:40 AM DICE TABLE OPERATOR): Stable Continue clinical assessment Assessment & Plan (04/20/2020 10:21 AM DICE TABLE OPERATOR): Stable Continue clinical observation Assessment & Plan (10/16/2019 12:30 PM CDT): Continue medical care and treatment Assessment & Plan (06/23/2019 8:25 AM CDT): Continue present medical care and treatment Assessment & Plan (05/15/2019 10:02 AM CDT): Continue medical care and treatment Assessment & Plan (03/18/2019 1:22 PM DICE TABLE OPERATOR): Continue medical care and treatment Assessment & Plan (12/16/2018 8:03 AM DICE TABLE OPERATOR): Continue medical care and treatment Assessment & Plan (07/01/2018 7:59 AM CDT): Continue medical care and treatment Assessment & Plan (11/24/2017 8:35 AM CDT): Continue medical care and treat Assessment & Plan (07/19/2017 10:41 AM CDT): Blood pressure intermittently above goal: 115-167/57-85 --Start Metoprolol 12.5 mg daily, MAXIME inhibitor if a second medication is needed --Follow up with PCP Atherosclerosis of coronary artery 07/18/2017 Overview (04/17/2021): Overview: History of coronary artery disease per cardiac catheterization on 06/25/2017 at which time he has identified to have 95% stenosis of the mid LAD with 80% stenosis of a large diagonal. Circumflex artery was patent. The RCA was patent. LV function was reduced with global hypokinesis. Patient underwent a complex coronary intervention procedure at [facility] 07/18/2017 with drug-eluting stents to the diagonal/ [...] underwent a complex coronary intervention procedure at [facility] 07/18/2017 with drug-eluting stents to the diagonal/ [...] care and treatment Type 2 diabetes mellitus without complication ([facility]/HCC) 07/18/2017 Overview (04/17/2021): Last Assessment & Plan: Continue medical care and treatment Last Assessment & Plan: Continue statin therapy Assessment & Plan (01/25/2024 11:54 AM DICE TABLE OPERATOR): Impression: Chronic and stable. Plan: Continue linagliptin, Farxiga Assessment & Plan (09/20/2023 3:16 PM CDT): Continue insulin Assessment & Plan (12/26/2022 12:03 PM DICE TABLE OPERATOR): Impression: Chronic with good glucose control. Plan: Continue insulin Hypercholesterolemia 06/18/2017 DM (diabetes mellitus), type 1 06/18/2017 Essential hypertension 09/12/2016 Overview (04/17/2021): Last Assessment & Plan: Continue medical care and treatment Assessment & Plan (12/26/2022 12:04 PM DICE TABLE OPERATOR): Impression: Chronic and stable. Plan: Continue metoprolol Malignant neoplasm of sigmoid colon (CMS/HCC) Overview (05/19/2016): Malignant neoplasm of sigmoid colon Malignant neoplasm of sigmoid colon (CMS/HCC) Overview (04/17/2021): Overview: Malignant neoplasm of sigmoid colon Acute hepatitis C without hepatic coma 5 Diabetes mellitus due to und erlying condition with stage 2 chronic kidney disease (CMS/HCC) Resolved Problems Problem Noted Date Diagnosed Date Resolved Date Bronchiectasis without acute exacerbation 06/23/2019 09/24/2019 Assessment & Plan (06/23/2019 1:06 PM CDT): Noted radiographically No symptoms of congestions or sputum production. Septic shock 04/12/2019 06/23/2019 S/P cardiac cath 07/19/2017 07/19/2017 Diffuse pulmonary alveolar hemorrhage 09/24/2019 Assessment & Plan (06/23/2019 1:05 PM CDT): Resolved / improved after treatment with rituxan / prednisone F/u CT chest as able; scheduled for July 17 Acute hypoxemic respiratory failure 06/23/2019 Encounters Date Type Department Care Team Description 02/27/2024 8:36 AM DICE TABLE OPERATOR - 02/27/2024 11:59 PM DICE TABLE OPERATOR Hospital Encounter [facility] D[facility] Access Center at [address] [address] ESRD (end stage renal disease) on dialysis (HCC) (Primary Dx); Other specified complication of vascular prosthetic devices, implants and grafts, initial encounter ([facility]) Discharge Disposition: Discharge to home or self care 02/27/2024 8:36 AM DICE TABLE OPERATOR - 02/27/2024 11:59 PM DICE TABLE OPERATOR Hospital Encounter [facility] [address] [place] [address] [place] [id number] ESRD (end stage renal disease) on dialysis (HCC); Other specified complication of vascular prosthetic devices, implants and grafts, initial encounter ([facility]) Discharge Disposition: Discharge to home or self care 01/30/2024 2:00 PM DICE TABLE OPERATOR - 01/30/2024 3:00 PM DICE TABLE OPERATOR Surgery [facility]/Practice Owner [address] [place] [id number] Hao Moscoso MD Dialysis Circuit Angiogram 01/30/2024 12:30 PM DICE TABLE OPERATOR - 01/30/2024 3:13 PM DICE TABLE OPERATOR Hospital Encounter [facility] Optomet[facility]/Practice Owner [address] [place] [id number] Hao Moscoso MD ESRD (end stage renal disease) on dialysis (HCC) Discharge Disposition: Discharge to home or self care 01/25/2024 10:03 AM DICE TABLE OPERATOR - 01/25/2024 11:59 PM DICE TABLE OPERATOR Hospital Encounter [facility] Dialysis Access Center at [address] [address] ESRD (end stage renal disease) on dialysis (HCC) (Primary Dx); Other specified complication of vascular prosthetic devices, implants and grafts, initial encounter (HCC); Mixed hyperlipidemia; Type 2 diabetes mellitus without complication, with long-term current use of insulin (CMS/[facility]) (HCC); Essential hypertension [I10]; Hypercholesterolemia [E78.00] Discharge Disposition: Discharge to home or self care 01/25/2024 10:00 AM DICE TABLE OPERATOR - 01/25/2024 11:59 PM DICE TABLE OPERATOR Hospital Encounter [facility] [address] [place] [address] [place] [phone] Dependence on renal dialysis (CMS/HCC) (HCC); End stage renal disease (CMS/HCC) (HCC); Underdosing of unspecified drugs primarily affecting the autonomic nervous system, sequela Discharge Disposition: Discharge to home or self care 01/25/2024 [facility] [address] [place] [id number] Hao Moscoso MD from Last 3 Months Immunizations Name Administration Dates Next Due Influenza, Unspecified 01/27/2019 Surgical History Surgery Date Site/Laterality Comments COLON SURGERY 02/12/2014 - 02/11/2015 CARDIAC CATHETERIZATION 06/12/2017 - 07/12/2017 CORONARY ARTERY BYPASS GRAFT 01/22/2019 CABG x 4 EXTERNAL FIXATOR APPLICATION 04/28/2021 Right RENAL BIOPSY 04/09/2019 US GUIDED BIOPSY RENAL 04/13/2022 N/A BRONCHOSCOPY 03/15/2022 - 04/11/2022 CENTRAL VENOUS CATHETER TUNNELED INSERTION DOUBLE LUMEN 04/03/2022 Right RIJ permacath - Dr. Wilkins (removed 11/02/22 - Dr. Hao Moscoso) COLONOSCOPY 2021 EYE SURGERY Bilateral cataracts removed FRACTURE SURGERY Right foot with hardware; late 2021 DIALYSIS FISTULA CREATION 09/05/2022 Left LUE brachial axillary AVG creation - Dr. Hao Moscoso AV FISTULA REPAIR 09/21/2023 Left LUE AVG - thrombectomy, angioplasty to subclavian vein, and stent to axillary vein - Dr. Ravi Moscoso AV FISTULA REPAIR 01/30/2024 Left LUE AVG - stent graft repair - Dr. Hao Moscoso Medical History Medical History Date Comments Coronary artery disease Diabetes mellitus (HCC) Hyperlipidemia Hypertension Colon cancer (CMS/HCC) (HCC) 201 5 Atrial fibrillation (CMS/[facility]) ([facility]) h/o per patient Emphysema lung ([facility]) patient den ies Paroxysmal atrial fibrillati on ([facility]) ([facility]) Abnormal cardiovascular stress test Orthostatic hypotension S/P CABG x 5 2018 Atherosclerosis of coronary artery Hypercholesterolemia Diabetes mellitus due to und erlying condition with stage 2 chronic kidney disease ([facility]) ([facility]) Acute hepatitis C without hepatic coma resolved per patient Pauci-immune RPGN (rapidly p rogressive glomerulonephritis) ESRD (end stage renal diseas e) ([facility]) ([facility]) on dialysis since 04/2022 Limb alert care status 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 History of COVID-2019; not ho spitalized Hearing loss no hearing aids Dental root implant present 4 fr ont top, 4 front bottom Neuropathy ([facility]) Smoker started cigarett es age 19, stopped 2007, smokes 2 cigars a day Allergic rhinitis GERD (gastroesophageal reflux disease) Type 2 diabetes mellitus ([facility]) Anxiety Wears dentures Dialysis patient ([facility]) tue, thus , sat Social History Tobacco Use Types Packs/Day Years Used Date Smoking Tobacco: Every Day Cigars Started: 1969; Last attempted to quit: 02/12/2008 Passive Smoke Exposure: Past Smokeless Tobacco: Never Tobacco Cessation:Ready to Q uit: Not Asked; Counseling Given: Not Answered Comments: pack year smoker/ former- smokes 2 cigars on a daily basis/stopped smoking cigarettes 2007- not eligible for screening. Last smoked last night 8-8 Alcohol Use Standard Drinks/Week Comments Yes 1 [...] 05/06/2021 How often do you attend chur or mormonism services? More than 4 times per year 05/06/2021 Do you belong to any clubs o r organizations such as christianity groups, unions, fraternal or athletic groups, or school groups? No 05/06/2021 How often do you attend meet ings of the clubs or organizations you belong to? Never 05/06/2021 Are you , , di vorced, , never , or living with a partner? 05/06/2021 AUDIT-C Answer Date Recorded Q1: How often do you have a drink containing alcohol? Never 01/30/2024 Q2: How many drinks containi ng alcohol do you have on a typical day when you are drinking? Patient does not drink Q3: How often do you have si x or more drinks on one occasion? Never 01/30/2024 Overall Financial Resource Strain (CARDIA) Answe r [...] place to sleep or slept in a [place] health care facility (including now)? No 05/06/2021 Personal Safety Answer Date Recorded Have you ever been in or are you currently in a harmful physical or emotional relationship or is someone making you feel afraid or unsafe? Denies 01/30/2024 Sex and Gender Information Value Date Recorded Sex Assigned at Not on file Legal Sex Male 9:06 PM DICE TABLE OPERATOR Gender Identity Male 10/24/2021 4:07 PM CDT Sexual Orientation Straight 10/24/2021 4: 07 PM CDT Obstetrics History Last Filed Vital Signs Vital Sign Reading Time Taken Comments Blood Pressure 123/63 02/27/2024 9:14 AM DICE TABLE OPERATOR Pulse 73 02/27/2024 9:14 AM DICE TABLE OPERATOR Temperature 36.8 ??C (98.2 ??F) 01/25/2024 10:[address] Respiratory Rate 19 01/30/2024 3:10 PM DICE TABLE OPERATOR Oxygen Saturation 100% 02/27/2024 9:14 AM DICE TABLE OPERATOR Inhaled Oxygen Concentration - - Weight 70 kg (154 lb 5.2 oz) 01/30/2024 1:15 PM DICE TABLE OPERATOR Height 182.9 cm (6') 01/25/2024 10:29 AM DICE TABLE OPERATOR Body Mass Index 20.93 01/25/2024 10:29 AM DICE TABLE OPERATOR Plan of Treatment Health Maintenance Due Date Last Done Comments Albumin Creatinine Ratio, Urine 1950 Colon Cancer Screening-Colonoscopy 1950 Depression Screening 1950 Foot Exam 1950 Pneumococcal vaccine 65+ (1 of 2 - PCV) 09/17/1957 Dilated Eye Exam 09/17/1961 Meningococcal B Vaccine (1 o f 4 - Increased Risk) 09/17/1961 DTaP/Tdap/Td Vaccine (1 - Tdap) 09/17/1962 Well Visit 65+ 09/17/2016 Hemoglobin A1C 10/06/2022 04/08/2022, 03/16, 04/28/2021, Additional history exists Lipid Panel 06/21/2023 06/20/2022, 03/15, 04/28/2021, Additional history exists TSH Level 08/04/2023 08/03/2022, 03/15, 02/08/2019 Covid-19 Vaccine (4 - 2023-2 5 season) 2023 12/09/2020, 05/18/2020, 04/25/2020 Zoster Vaccine (2 of 2) 02/13/2024 12/19/2023, 12/22 eGFR 09/20/2024 09/21/2023, 08/0 09/2023, 04/23/2022, Additional history exists Fall Risk Assessment 01/29/2025 01/30/2024 Hepatitis C Screening Completed 04/10/2022 , 04/10/2022, 04/19/2021, Additional history exists Abdominal Aortic Aneurysm (A AA) Screen Completed 05/13/2022 Influenza Vaccine Completed 10/14/2023, , 12/16/2018, Additional history exists Medical Devices Implanted Type Area Technical Aid Device Identifier Shelf Expiration Date Model / Serial / Lot Dental Implant Mouth Lens Bilateral: Eye Wire Sternum Av Graft Left: Arm System Coronary Stent Xience Alpine Everolimus Eluting Cocr L28 Mm L145 Cm Od2.5 Mm Rapid Exchange Radiopaque 1 Access Port Accepts .014- In Guidewire - [id number] Implanted:Qty: 1 on 07/18/2017 by Mary Esqueda MD at [facility] 03/21/2020 [id number] / / [id number] System Coronary Stent Xience Alpine Everolimus Eluting Cocr L33 Mm L145 Cm Od3 Mm Rapid Exchange Radiopaque 1 Access Port Accepts .014- In Guidewire - [id number] Implanted:Qty: 1 on 07/18/2017 by Mary Esqueda MD at [facility] [employer] 01/05/2020 [id number] / / [id number] System Coronary Stent Xience Alpine Everolimus Eluting Cocr L15 Mm L145 Cm Od3.5 Mm Rapid Exchange Radiopaque 1 Access Port Accepts .014- In Guidewire - [id number] Implanted:Qty: 1 on 07/18/2017 by Mary Esqueda MD at [facility] [employer] 02/16/2020 [id number] / / [id number] Synthes 294.55 Schanz 5mm 170mm 50mm Blunt Trocar Point Xlong Screw External - [id number] Implanted:Qty: 2 on 04/28/2021 by Celia Arnett MD at [facility] Right: Leg Synthes I 294.55 / / [employer]/Or tho [id number] Evos 3.5mm 26mm Self Tap Cortex Screw Bone Sterile - [id number] Implanted:Qty: 1 on 05/03/2021 by Samuel Fabian MD at [facility] Right: Leg [employer]/ Ortho [id number] / / [employer]/Or tho [id number] 2.7mm 4.3mm 46mm Lock Self Retain Flat Head Long Bone Small Bone - [id number] Implanted:Qty: 2 on 05/03/2021 by Samuel Fabian MD at [facility] Right: Leg [employer]/ Ortho [id number] / / [employer]Or tho [id number] 2.7mm 4.3mm 44mm Lock Self Retain Flat Head Long Bone Small Bone - [id number] Implanted:Qty: 1 on 05/03/2021 by Samuel Fabian MD at [facility] Right: Leg [employer]/ Ortho [id number] / / [employer]Or tho [id number] 2.7mm 4.3mm 34mm Lock Self Retain Flat Head Long Bone Small Bone - [id number] Implanted:Qty: 1 on 05/03/2021 by Samuel Fabian MD at [facility] Right: Leg [employer]/ Ortho [id number] / / [employer]Or tho [id number] 2.7mm 4.3mm 50mm Lock Self Retain Flat Head Long Bone Small Bone - [id number] Implanted:Qty: 2 on 05/03/2021 by Samuel Fabian MD at [facility] Right: Leg [employer]/ Ortho [id number] / / [employer]Or tho [id number] Evos 3.5mm 38mm Self Tap Lock Screw Bone Sterile - [id number] Implanted:Qty: 1 on 05/03/2021 by Samuel Fabian MD at [facility] Right: Leg [employer]/ Ortho [id number] / / [employer]Or tho [id number] Evos 3.5mm 40mm Self Tap Lock Screw Bone Sterile - [id number] Implanted:Qty: 1 on 05/03/2021 by Samuel Fabian MD at [facility] Right: Leg [employer]/ Ortho [id number] / / [employer]Or tho [id number] Evos 3.5mm 42mm Self Tap Lock Screw Bone Sterile - [id number] Implanted:Qty: 1 on 05/03/2021 by Samuel Fabian MD at [facility] Right: Leg [employer]/ Ortho [id number] / / [employer]Or tho [id number] Evos 130x12.2x2mm 17.4x1.7mm 9 Hole Low Profile Variable Angle - [id number] Implanted:Qty: 1 on 05/03/2021 by Samuel Fabian MD at [facility] Right: Leg [employer]/ Ortho [id number] / / [employer]Or tho [id number] Evos 107x10.9x1.5mm 32x1.4mm 6 Hole Low Profile Variable Angle - [id number] Implanted:Qty: 1 on 05/03/2021 by Samuel Fabian MD at [facility] Right: Leg [employer]/ Ortho [id number] / / [employer]Or tho [id number] - [id number] Implanted:Qty: 2 on 05/03/2021 by Samuel Fabian MD at [facility] Right: Leg [employer]/ Ortho [id number] / / [employer]Or tho [id number] Evos 3.5mm 48mm Self Tap Cortex Screw Bone Sterile - [id number] Implanted:Qty: 1 on 05/03/2021 by Samuel Fabian MD at [facility] Right: Leg [employer]/ Ortho [id number] / / [employer]Or tho [id number] Evos 3.5mm 28mm Self Tap Cortex Screw Bone Sterile - [id number] Implanted:Qty: 2 on 05/03/2021 by Samuel Fabian MD at [facility] Right: Leg [employer]/ Ortho [id number] / / [employer]Or tho [id number] Evos 3.5mm 32mm Self Tap Cortex Screw Bone Sterile - [id number] Implanted:Qty: 1 on 05/03/2021 by Samuel Fabian MD at [facility] Right: Leg [employer]/ Ortho [id number] / / [employer]Or tho [id number] Evos 3.5mm 24mm Self Tap Cortex Screw Bone Sterile - [id number] Implanted:Qty: 1 on 05/03/2021 by Samuel Fabian MD at [facility] Right: Leg [employer]/ Ortho [id number] / / [employer] [place] Acuseal 4-7mm 45cm Taper Graft Vascular Sterile [id number] - [id number] - [id number] Implanted:Qty: 1 on 09/05/2022 by Hao Moscoso MD at [facility] Left: Olecranon [employer] [id number] 12/21/2024 [id number] / [id number] / Bard [facility] Stent Graft Arteriovenous Flared Covera [id number] Ptfe [id number] - [id number] Implanted:Qty: 1 on 09/21/2023 by Ravi Moscoso MD at [facility] Left: Arm [employer] [facility] [id number] 10/20/2024 [id number] / / [id number] [employer] Peripheral Vascular Covera 7mm 8fr 80mm 80cm Cover Helical Strut Thumbwheel [id number] - [id number] Implanted:Qty: 1 on 01/30/2024 by Hao Moscoso MD at [facility] [employer] [facility] 12/22/2024 [id number] / / [id number] Explanted Type Area Technical Aid Device Identifier Shelf Expiration Date Model / Serial / Lot [employer]/ Ortho [id number] 2.7mm 4.3mm 40mm Lock Self Retain Flat Head Long Bone Small Bone - [id number] Explanted:Qty: 1 on 05/03/2021 by Samuel Fabian MD at [facility] Right: Leg [employer]/Jose/Abhijeet ho [id number] / / Procedures Procedure Name Priority Date/Time Associated Diagnosis Comments US HEMODIALYSIS ACCESS Schedule Routine, Read Routine (OP Routine) 02/27/2024 9:23 AM DICE TABLE OPERATOR ESRD (end stage renal disease) on dialysis (HCC) Other specified complication of vascular prosthetic devices, implants and grafts, initial encounter ([facility]) INTRO CATH DIALYSIS CIRCUIT DX ANGRPH FLUOR [id number] Routine 01/30/2024 2:10 PM DICE TABLE OPERATOR ESRD (end stage renal disease) on dialysis (HCC) POCT CREATININE FOR CONTRAST EVALUATION Routine 01/30/2024 1:29 PM DICE TABLE OPERATOR POC BLOOD GAS AND CHEMISTRIES, VENOUS Routine 01/30/2024 1:25 PM DICE TABLE OPERATOR US HEMODIALYSIS ACCESS Schedule Routine, Read Routine (OP Routine) 01/25/2024 10:31 AM DICE TABLE OPERATOR Dependence on renal dialysis (CMS/HCC) (HCC) End stage renal disease (CMS/HCC) (HCC) Underdosing of unspecified drugs primarily affecting the autonomic nervous system, sequela EGFR Timed 09/21/2023 1:54 PM CDT POCT LIPID PANEL Routine 06/20/2022 9:3 7 AM CDT Need for lipid screening HEPATITIS PANEL, ACUTE Routine 04/10/2022 12:40 PM DICE TABLE OPERATOR HEMOGLOBIN A1C Routine 04/08/2022 11:35 AM DICE TABLE OPERATOR THYROID FUNCTION CASCADE Routine 02/08/2019 12:59 AM DICE TABLE OPERATOR from Last 3 Months or Most Recently Relevant to Health Maintenance Results * US Hemodialysis Access (02/27/2024 9:23 AM DICE TABLE OPERATOR) Anatomical Region Laterality Modality Vascular N/A Ultrasound 02/27/2024 Narrative 02/29/2024 9:06 AM DICE TABLE OPERATOR [employer] Job ID: [id number] [employer] Document ID: [id number] Dictated date/time: [id number] UPPER EXTREMITY VENOUS DUPLEX REASON FOR EXAM AV graft stenosis. FINDINGS The left brachial artery is patent, velocity 132 cm/second. ??Left brachial to axillary AV graft patent. ??In-graft stenosis velocity 362, 440 cm/second. ??Outflow stent patent, velocity 165, 109 cm/sec. OVERALL IMPRESSION Patent left brachial to axillary AV graft with cannulation zone stenosis. Job ID/Internal Job ID: ??[id number] Hao Moscoso MD IMG US PROCEDURES Final Re sult * INTRO CATH DIALYSIS CIRCUIT DX ANGRPH FLUOR [id number] (01/30/2024 2:10 PM DICE TABLE OPERATOR) Anatomical Region Laterality Modality X-Ray Angiograph y Narrative 01/30/2024 2:15 PM DICE TABLE OPERATOR Please see OpNote for result. Hao Moscoso MD CV CARDIAC CATH PROCEDURES Final Result * (ABNORMAL) POCT creatinine for contrast evaluation (01/30/2024 1:29 PM DICE TABLE OPERATOR) Creatinine POC 7.50(H) 0.80 - 1.30 mg/dL Blood 01/30/2024 1:29 PM DICE TABLE OPERATOR 01/30/2024 1:29 PM DICE TABLE OPERATOR Hao Moscoso MD POINT OF CARE TEST ORDERAB LES Final Result [facility] [address] [facility] Department [place] [address] * (ABNORMAL) POC Blood Gas and Chemistries, Venous - (01/30/2024 1:25 PM DICE TABLE OPERATOR) pH,haritha POC 7.38 7.32 - 7.43 pCO2, haritha POC 49 40 - 50 mmHg [facility] pO2,haritha POC 23 mmHg [facility] Comment: Interpretive Data No reference range established. Current interpretive data was last revised 2019. HCO3, haritha (Calc) POC 29 20 - 30 mmol/L [facility] Base excess, haritha POC 3 mmol/L [facility] Comment: Interpretive Data No reference range established. Current interpretive data was last revised 2019. Hemoglobin, haritha POC 12.9(L) 13.0 - 17.5 g/dL [facility] Hematocrit, haritha POC 38.0(L) 38.9 - 50.3 % [facility] Sodium, haritha POC 140 135 - 145 mmol/L [facility] Potassium, haritha POC 4.9 3.3 - 4.9 mmol/L [facility] Comment: Interpretive Data This method is not able to assess for hemolysis, which may falsely increase potassium concentrations. If further testing is needed to evaluate this result, consider in-laboratory plasma potassium. Current Interpretive Data was last revised on 2021. Glucose, haritha POC 72 70 - 199 mg/dL [facility] Ionized Calcium, haritha POC 4.10(L) 4.50 - 5.10 mg/dL [facility] Blood 01/30/2024 1:25 PM DICE TABLE OPERATOR 01/30/2024 1:25 PM DICE TABLE OPERATOR us Hao Moscoso MD LAB POCT ORDERABLES - GONZALO CE Final Result [facility] [address] [facility] Department [place] [address] * US Hemodialysis Access (01/25/2024 10:31 AM DICE TABLE OPERATOR) Anatomical Region Laterality Modality Vascular N/A Ultrasound 01/25/2024 Narrative 01/28/2024 7:24 AM DICE TABLE OPERATOR [employer] Job ID: [id number] [employer] Document ID: [id number] Dictated date/time: [id number] LEFT UPPER EXTREMITY HEMODIALYSIS DUPLEX REASON FOR EXAM End-stage renal disease. FINDINGS ON THE LEFT The patient has a left brachial artery to axillary vein graft. ??The arterial anastomosis peak systolic velocity is 648. ??Velocities are then 494, 312, 640. ??There is a stent with a velocity 238. ??Axillary vein 87, subclavian vein 54. INTERPRETATION Patent left brachial artery to axillary vein graft. ??Stent in the axillary vein is patent. ??Area of in-graft stenosis. Job ID/Internal Job ID: ??[id number] us Hao Moscoso MD IM US PROCEDURES Final Re sult * (ABNORMAL) eGFR (09/21/2023 1:54 PM CDT) [facility] eGFR 6(L) >=60 mL/min/1. 73 m2 Comment: Interpretive Data Reference Interval Normal ?>/= 90 mL/min/1.73m2 Mildly decreased* ? 60 - 89 mL/min/1.73m2 Mildly to moderately decreased ?45 - 59 mL/min/1.73m2 Moderately to severely decreased ??30 - 44 mL/min/1.73m2 Severely decreased ?15 - 29 mL/min/1.73m2 Kidney Failure ?< 15 ??mL/min/1.73m2 *Relative to young adult level Estimated glomerular filtration rate is determined by the 2020 CKD-EPI equation recommended by the National Kidney Foundation (A Unifying Approach to GFR Estimation: Recommendations of the NKF-ASK Task Force on Reassessing the Inclusion of Race in Diagnosing Kidney Disease, JASN 2020). The CKD-EPI equation should not be used for patients with unstable renal function and has not been validated in children and those over 70. Current interpretive data was last reviewed 2020. Blood 09/21/2023 1:54 PM CDT 09/21/2023 1:58 PM CDT Prosper Kaufman MD LAB BLOOD ORDERABLES Final Resul t [facility] [address] [facility] Department [place] [address] * POCT lipid panel (06/20/2022 9:37 AM CDT) Pathologist [facility] HDL, POC 50 mg/dL Triglycerides, POC 390 mg/dL LDL Cholesterol POC 127 mg/dL Chol/HDL Ratio, POC 5.1 Non-HDL Cholesterol, POC 205 mg/dL Cholesterol Total, POC 254 mg/dL Capillary blood 06/20/2022 9 :37 AM CDT us Bayron Patino MD POINT OF CARE TEST ORDERABL ES Final Result * (ABNORMAL) Hepatitis panel, acute (04/10/2022 12:40 PM DICE TABLE OPERATOR) [facility] Hep A IgM Nonreactive Nonreactive [facility] Hep B core IgM Nonreactive Nonreactive [facility] Hep C Ab Reactive(A) Nonreactive [facility] Comment: Reactive for HCV antibodies. ??This may represent current or past HCV infection. Supplemental molecular testing will be automatically performed to determine current infection status in accordance with current CDC screening recommendations. Current interpretive data was last revised on 21 HepBsAg Nonreactive Nonreactive [facility] Blood 04/10/2022 12:4 0 PM DICE TABLE OPERATOR 04/10/2022 1:12 PM DICE TABLE OPERATOR Carmen Feliz MD LAB MICROBIOLOGY - GE NERAL ORDERABLES Final Result [facility] Department [place] [address] * (ABNORMAL) Hemoglobin A1c (04/08/2022 11:35 AM DICE TABLE OPERATOR) [facility] Hgb A1C 6.3(H) 4.0 - 5.6 % [facility] Estimated Average Glucose 134 mg/dL [facility] Comment: The ADA recommends reporting an estimated Average Glucose (eAG) with all Hemoglobin A1c results using the equation derived from a study of 507 normal and diabetic adults. ??Minority populations were underrepresented and children were not included. ?? (Diabetes Care 2020; 43(S1): S66-S76). ??The eAG is not equivalent to a fasting glucose. Blood 04/08/2022 11:3 5 AM DICE TABLE OPERATOR 04/08/2022 12:09 PM DICE TABLE OPERATOR us Carmen Feliz MD LAB BLOOD ORDERABLES Final Result [facility] [address] [facility] Department [place] [address] * TSH reflex to free T4 (02/08/2019 12:59 AM DICE TABLE OPERATOR) TSH 0.95 0.30 - 4.20 mcIUnit/mL [facility] Blood specimen (specimen) 02/08/2019 12:59 AM DICE TABLE OPERATOR 02/08/2019 1:14 AM DICE TABLE OPERATOR us Julia Muniz NP LAB BLOOD ORDERABLES Final Resu lt Performing Organization Address City/[facility]/ZIP Co de Phone Number [facility] [address] Department [place] [address] from Last 3 Months or Most Recently Relevant to Health Maintenance Insurance [facility] [employer] MCR [employer]TRA [facility] Advance Directives For more information, please contact: [phone] * Full Code (Latest Code Status on File) Date Activated Date Inactivated Comments 04/08/2022 11:26 AM 04/26/2022 12:45 AM * Full Code Date Activated Date Inactivated Comments 05/03/2021 7:17 PM 05/05/2021 7:25 PM * Full Code Date Activated Date Inactivated Comments 04/28/2021 4:30 PM 05/03/2021 7:17 PM * Full Code Date Activated Date Inactivated Comments 04/28/2021 4:29 PM 04/28/2021 4:30 PM * Full Code Date Activated Date Inactivated Comments 04/03/2019 2:25 AM 04/14/2019 7:41 PM Care Teams Multimedia Project Manager Relationship Specialty Start Date End Date Zack Mota MD [address] [place] [id number] PCP - General Family Medicine 02/23/22 Sherrie Aquino DO [address] [place] [address] 02/12/17 Conchita Prakash DO [address] [place] [address] Family Medicine 07/04/17 Bayron Patino MD [address] [place] [address] [employer]et Parking Attendant Cardiology 06/13/22 Hao Moscoso MD [facility] [address] [address] Surgeon Surgery 09/05/22 Shawanda Craig MD [address] [facility] [address] [place] [address] Referring Physician Nephrology 09/20/23 [place] [address] [place] [address] Consulting Physician Gastroenterology 09/20/23
--- OUTSIDE RECORDS SUMMARY | 2024-03-14 01:34 | XMS_ITS | Encounter Summary ---
Author Organization [facility] Address [address] [place] [address] Care Team Providers Care Smearer Name Role Phone Sherrie Aquino DO Unavailable [phone] Conchita Prakash DO Unavailable [phone] Zack Mota MD Primary Care Provider Bayron Patino MD Unavailable [phone] Hao Moscoso MD Unavailable [phone] Shawanda Craig MD Unavailable [phone] Jose Mckenzie MD Unavailable Encounter Details Date Type Department Care Team (Late st Contact Info) Description 09/20/2023 Telephone [facility] at [facility] [address] [facility] [place] [address] [place] [address] [place] [address] [address] [place] [address] Social History Tobacco Use Types Packs/Day Years Used Date Smoking Tobacco: Every Day Cigarettes 1 39 Started: 1970; Last attempted to quit: 02/12/2008 Cigars Started: 1969; Last attempted to quit: 02/12/2008 Passive Smoke Exposure: Past Smokeless Tobacco: Never Comments:2023- pack year s moker/ former- smokes 2 cigars on a daily basis/stopped smoking cigarettes 2007- not eligible for screening. Alcohol Use Standard Drinks/Week Comments Yes 1 [...] often do you attend chur ch or confucianism services? More than 4 times per year 05/06/2021 Do you belong to any clubs o r organizations such as pentecostalism groups, unions, fraternal or athletic groups, or school groups? No 05/06/2021 How often do you attend meet ings of the clubs or organizations you belong to? Never 05/06/2021 Are you , , di vorced, , never , or living with a partner? 05/06/2021 AUDIT-C Answer Date Recorded Q1: How often do you have a drink containing alcohol? Never 09/21/2023 Q2: How many drinks containi ng alcohol do you have on a typical day when you are drinking? Patient does not drink Q3: How often do you have si x or more drinks on one occasion? Never 09/21/2023 Overall Financial Resource Strain (CARDIA) Answe r [...] place to sleep or slept in a retirement (including now)? No 05/06/2021 Personal Safety Answer Date Recorded Have you ever been in or are you currently in a harmful physical or emotional relationship or is someone making you feel afraid or unsafe? 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 Gender Identity Male 10/24/2021 4:07 PM CDT Sexual Orientation Straight 10/24/2021 4: 07 PM CDT documented as of this encounter Plan of Treatment Not on file documented as of this encounter Visit Diagnoses Not on filedocumented in this encounter Care Teams Smearer Relationship Specialty Start Date End Date Zack Mota MD [address] [place] [id number] PCP - General Family Medicine 02/23/22 Sherrie Aquino DO [address] [place] [address] 02/12/17 Conchita Prakash DO [address] [place] [address] Family Medicine 07/04/17 Bayron Patino MD [address] [place] [address] Electrician Control Equipment Cardiology 06/13/22 Hao Moscoso MD [address] [place] [address] Surgeon Surgery 09/05/22 Shawanda Craig MD [address] [facility] [address] [place] [address] Referring Physician Nephrology 09/20/23 [place] [address] [place] [address] Consulting Physician Gastroenterology 09/20/23 documented as of this encounter
--- OUTSIDE RECORDS SUMMARY | 2024-03-14 01:34 | XMS_ITS | Encounter Summary ---
Author Organization [facility] Address [address] [place] [address] Care Team Providers Care Pharmacy Clinical Specialist Name Role Phone Sherrie Aquino DO Unavailable [phone] Conchita Prakash DO Unavailable [phone] Zack Mota MD Primary Care Provider Bayron Patino MD Unavailable [phone] Hao Moscoso MD Unavailable [phone] Shawanda Craig MD Unavailable [phone] Jose Mckenzie MD Unavailable Encounter Details Date Type Department Care Team (Late st Contact Info) Description 01/25/2024 Telephone [facility] Dialysis Access Center at [facility] [address] [facility] [address] [place], [place] [id number] Hao Moscoso MD [address] [place] [id number] Social History Tobacco Use Types Packs/Day Years Used Date Smoking Tobacco: Every Day Cigars Started: 1969; Last attempted to quit: 02/12/2008 Passive Smoke Exposure: Past Smokeless Tobacco: Never Comments: pack year s moker/ former- smokes 2 [...] often do you attend chur ch or taoist services? 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 Gender Identity Male 10/24/2021 4:07 PM CDT Sexual Orientation Straight 10/24/2021 4: 07 PM CDT documented as of this encounter Plan of Treatment Not on file documented as of this encounter Visit Diagnoses Not on filedocumented in this encounter Care Teams Pharmacy Clinical Specialist Relationship Specialty Start Date End Date Zack Mota MD [address] [place] [address] PCP - General Family Medicine 02/23/22 Sherrie Aquino DO [address] [place] [address] 02/12/17 Conchita Prakash DO [address] [place] [address] Family Medicine 07/04/17 Bayron Patino MD [address] [place] [address] Oyster Planter Cardiology 06/13/22 Hao Moscoso MD [address] [facility] [address] [place] [address] Surgeon Surgery 09/05/22 Shawanda Craig MD [address] [facility] [address] [place] [address] Referring Physician Nephrology 09/20/23 [place] [address] [place] [address] Consulting Physician Gastroenterology 09/20/23 documented as of this encounter
--- OUTSIDE RECORDS SUMMARY | 2024-03-14 01:34 | XMS_ITS | Clinical Summary ---
Author Organization [facility] Address [address] [place] [address] Care Team Providers Care Spar Machine Operator Helper Name Role Phone YoungwandaConchita Primary Care Provider Source Comments [facility],non-owned Affiliates and Associated Physician Practices is amultiple site organization consisting of ambulatory clinics and hospital sitesin [place], [place], [place] and [place]. This disclosure is being madepursuant to the Care Everywhere program and may not contain all information available regarding this patient. Last updated 17.[facility] Allergies No known active allergies Medications * Be aware that medications may not be up to date on this document. Alwaysverify current medications with the patient. Medication Sig Dispensed Refills Start Date End Date Status Cyanocobalamin (VITAMIN B-12) 50 MCG Take 50 mcg by mouth once daily 09/14/2016 Active acetaminophen (TYLENOL) 500 MG tablet Take 1,000 mg by mouth every 6 hours as needed Active aspirin EC (ECOTRIN) 81 MG tablet Take 81 mg by mouth once daily Active atorvastatin (LIPITOR) 80 MG tablet Take 80 mg by mouth at bedtime 05/05/2021 Active Biotin 1000 MCG Take 2 mg by mouth once daily Active Cholecalciferol 50 MCG (2000 UT) Take 50 mcg by mouth once daily Active DULoxetine (CYMBALTA) 30 MG capsule Take 30 mg by mouth once daily 05/17/2021 Active DULoxetine (CYMBALTA) 60 MG capsule Take 60 mg by mouth once daily 07/10/2021 Active clobetasol (TEMOVATE) 0.05 % ointmentIndications:Iesha sarkar simplex chronicus Apply to rash on Right hand 2-3x daily. 30 day supply. 60 g 1 09/08/2021 Active Active Problems Problem Noted Date Diagnosed Date ESRD (end stage renal disease) 04/07/2022 Other skin changes 02/26/2017 Other atrophic disorders of skin 02/26/2017 Rash and other nonspecific skin eruption 017 Family History Medical History Relation Name Comments CVA Neg Hx Cancer - Breast Neg Hx Cancer - Other Neg Hx Cancer - Skin, Melanoma Neg Hx Cancer - Skin, Non Melanoma Neg Hx Eczema Neg Hx Hemophilia Neg Hx Psoriasis Neg Hx Social History Tobacco Use Types Packs/Day Years Used Date Smoking Tobacco: Former Smokeless Tobacco: Never Alcohol Use Standard Drinks/Week Comments Yes 0 (1 standard drink = 0.6 oz pur e alcohol) Sex and Gender Information Value Date Recorded Sex Assigned at Not on file Gender Identity Not on file Sexual Orientation Not on file Last Filed Vital Signs Vital Sign Reading Time Taken Comments Blood Pressure 121/103 04/04/2017 2:43 PM CERTIFIED ETHICAL HACKER Pulse 63 04/04/2017 2:43 PM CERTIFIED ETHICAL HACKER Temperature 36.4 ??C (97.5 ??F) 02/26/2017 9:33 AM CS T Respiratory Rate - - Oxygen Saturation 97% 02/26/2017 9:33 AM CERTIFIED ETHICAL HACKER Inhaled Oxygen Concentration - - Weight 88.5 kg (195 lb) 04/04/2017 2:43 PM CERTIFIED ETHICAL HACKER Height 182.9 cm (6') 04/04/2017 2:43 PM CERTIFIED ETHICAL HACKER Body Mass Index 26.45 04/04/2017 2:43 PM CERTIFIED ETHICAL HACKER Plan of Treatment Health Maintenance Due Date Last Done Comments COLOGUARD (AGES 45-75) - COL ON CA SCREENING 1950 COLON MONITORING 1951 COLONOSCOPY - COLON CA SCREENING 1950 CT COLONOGRAPHY - COLON CA SCREENING 1950 Colorectal Cancer Screening 1950 FIT - COLON CA SCREENING 1950 FLEX SIG - COLON CA SCREENING 1950 MEDICARE AWV ? 12 MONTHS 1950 HEPATITIS C SCREENING 09/13/1969 DTAP/TDAP/TD VACCINES (1 - Tdap) 09/17/1970 PNEUMOCOCCAL VACCINE 50+ (1 of 1 - PCV) 09/17/2001 ZOSTER VACCINE (1 of 2) 09/17/2001 HEPATITIS B VACCINE (1 of 3 - Risk 3-dose series) 2011 AAA SCREENING 09/17/2016 COVID-19 VACCINE ( - 2023-2 5 season) 2023 INFLUENZA VACCINE (#1) 2023 0, 01/27/2019 DEPRESSION SCREENING 02/13/2024 MEDICARE AWV ? CALENDAR YEAR 2024 Respiratory Syncytial Virus (RSV) Vaccine Pt: or over 60 yrs (1 - 1-dose 75+ series) 09/17/2026 HIB VACCINE Aged Out No longer eligi ble based on patient's age to complete this topic HPV VACCINE Aged Out No longer eligi ble based on patient's age to complete this topic MENINGOCOCCAL (Group B) VACCINE Aged Out No longer eligible b ased on patient's age to complete this topic MENINGOCOCCAL VACCINE Aged Out No andreina nayana eligible based on patient's age to complete this topic Care Teams Spar Machine Operator Helper Relationship Specialty Start Date End Date Conchita Prakash DO [address] [place] [phone] PCP - General 02/26/17
--- OUTSIDE RECORDS SUMMARY | 2024-03-14 01:34 | XMS_ITS | Referral Summary ---
Author Organization [facility] Address [address] [place] [address] Care Team Providers Care Senior Java Software Engineer Name Role Phone Sherrie Aquino DO Unavailable [phone] Conchita Prakash DO Unavailable [phone] Zack Mota MD Primary Care Provider [phone] Bayron Patino MD Unavailable [phone] Hao Moscoso MD Unavailable [phone] Shawanda Craig MD Unavailable [phone] Jose Mckenzie MD Unavailable Encounters Date Type Department Care Team Description 02/27/2024 8:36 AM SENIOR PAYROLL MANAGER - 02/27/2024 11:59 PM SENIOR PAYROLL MANAGER Hospital Encounter [facility] at [address] [place] [address] ESRD (end stage renal disease) on dialysis (HCC) (Primary Dx); Other specified complication of vascular prosthetic devices, implants and grafts, initial encounter ([facility]) Discharge Disposition: Discharge to home or self care 02/27/2024 8:36 AM SENIOR PAYROLL MANAGER - 02/27/2024 11:59 PM SENIOR PAYROLL MANAGER Hospital Encounter [facility] [address] [place] [address] ESRD (end stage renal disease) on dialysis (HCC); Other specified complication of vascular prosthetic devices, implants and grafts, initial encounter ([facility]) Discharge Disposition: Discharge to home or self care 01/30/2024 2:00 PM SENIOR PAYROLL MANAGER - 01/30/2024 3:00 PM SENIOR PAYROLL MANAGER Surgery [facility] [employer] [address] [place] [id number] Hao Moscoso MD Dialysis Circuit Angiogram 01/30/2024 12:30 PM SENIOR PAYROLL MANAGER - 01/30/2024 3:13 PM SENIOR PAYROLL MANAGER Hospital Encounter [facility] [address] [place] [id number] Hao Moscoso MD ESRD (end stage renal disease) on dialysis (HCC) Discharge Disposition: Discharge to home or self care 01/25/2024 Telephone [facility] at [address] [address] Hao Moscoso MD 01/25/2024 10:03 AM SENIOR PAYROLL MANAGER - 01/25/2024 11:59 PM SENIOR PAYROLL MANAGER Hospital Encounter [facility] at [address] [address] ESRD (end stage renal disease) on dialysis (HCC) (Primary Dx); Other specified complication of vascular prosthetic devices, implants and grafts, initial encounter ([facility]); Mixed hyperlipidemia; Type 2 diabetes mellitus without complication, with long-term current use of insulin ([facility]) ([facility]); Essential hypertension [I10]; Hypercholesterolemia [E78.00] Discharge Disposition: Discharge to home or self care 01/25/2024 10:00 AM SENIOR PAYROLL MANAGER - 01/25/2024 11:59 PM SENIOR PAYROLL MANAGER Hospital Encounter [facility] [address] [place] [address] Dependence on renal dialysis (CMS/HCC) (HCC); End stage renal disease (CMS/HCC) (HCC); Underdosing of unspecified drugs primarily affecting the autonomic nervous system, sequela Discharge Disposition: Discharge to home or self care from Last 3 Months Allergies No known active allergies Medications ascorbic acid (ascorbic acid with elvis hips) 500 mg tablet,chewableIndic ations:Vitamin Deficiency Prevention Take 1 tablet/chew tab (500 mg total) by mouth daily 01/30/20 Active cholecalciferol (Vitamin D3) 2,000 unit tabletIndications:Pr evention of Vitamin D Deficiency Take 1 tablet (2,000 Units total) by mouth daily 01/30/20 Active folic acid/multivit-min/maurizio tein (CENTRUM SILVER ORAL)Indications:Vit [...] total) by mouth daily 30 tablet 04/26/19 23 Active aspirin 81 mg enteric coated tablet Take 1 tablet (81 mg total) by mouth daily 90 tablet 3 06/21/19 23 Active dapagliflozin (FARXIGA) 5 mg tablet Take 1 tablet (5 mg total) by mouth daily Active traMADoL (ULTRAM) 50 mg tablet Take 1 tablet (50 mg total) by mouth every 6 (six) hours as needed for pain or other 09/04/19 23 Active albuterol HFA (PROVENTIL HFA,VENTOLIN HFA,PROAIR [...] Problems Problem Noted Date Diagnosed Date Cancer (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 Patino. Answered all questions at this time. Discussed the pt with Dr. Moscoso. Acute respiratory failure 03/31/2022 Closed displaced pilon fract ure of right tibia, initial encounter 05/04/2021 Closed displaced pilon fracture of right tibia 0 04/27/2021 Overview (04/28/2021): Added automatically from request for surgery [id number] Closed displaced pilon fracture of right tibia [...] re-reviewed Assessment & Plan (02/23/2021 12:52 PM SENIOR PAYROLL MANAGER): The usual differential for pulmonary nodule includes [...] 04/14/2020 Assessment & Plan (04/17/2021 7:39 AM SENIOR PAYROLL MANAGER): unstable Smoking cessation Assessment & Plan (04/14/2020 12:38 PM SENIOR PAYROLL MANAGER): The detrimental effects of tobacco use were discussed with the patient. We discussed that smoking is a major risk factor for heart attacks, strokes, chronic obstructive pulmonary disease, and cancer. The importance of discontinuing the use of tobacco was discussed with the patient. Methods to aid in tobacco cessation including the cold Crosby method, nicotine replacement therapy, and pharmacologic therapy were discussed. Electronic cigarettes and acupuncture were also discussed. Plan yearly CT lung screening evaluation Orthostatic hypotension 12/05/2019 Other emphysema 09/24/2019 Assessment & Plan (10/30/2022 3:34 PM CDT): Mild COPD Quit smoking years ago Stable symptoms at this time Continue with prn albuterol Assessment & Plan (04/14/2020 12:37 PM SENIOR PAYROLL MANAGER): COPD is newly identified. 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/HCC) 0 Anemia due to stage 3 chronic kidney disease Overview (04/17/2021): Last Assessment & Plan: Continue clinical observation Glomerulonephritis 04/11/2019 Assessment & Plan (04/20/2020 10:20 AM SENIOR PAYROLL MANAGER): Stable Continue clinical observation Moderate malnutrition (CMS/HCC) 04/09/2019 Paroxysmal atrial fibrillation (CMS/HCC) 020 Overview (03/18/2019): Postop atrial fibrillation Assessment & Plan (04/17/2021 7:40 AM SENIOR PAYROLL MANAGER): Stable EKG Assessment & Plan (10/16/2019 12:31 PM CDT): Continue clinical observation Assessment & Plan (06/23/2019 8:25 AM CDT): Continue clinical observation Assessment & Plan (05/15/2019 10:02 AM CDT): Anticoagulation and amiodarone therapy Assessment & Plan (03/18/2019 1:32 PM SENIOR PAYROLL MANAGER): EKG Paroxysmal atrial fibrillation (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 Circumflex artery was patent. The RCA was patent. LV function was reduced with global hypokinesis. Patient underwent a complex coronary intervention procedure at [facility] 07/18/2017 with drug-eluting stents to the [...] 01/22/2019 Assessment & Plan (04/17/2021 7:39 AM SENIOR PAYROLL MANAGER): Stable Continue Lipitor, aspirin Assessment & Plan (04/20/2020 10:20 AM SENIOR PAYROLL MANAGER): Stable Continue aspirin, Lipitor Assessment & Plan (10/16/2019 12:30 PM CDT): Continue medical care and treatment Assessment & Plan (06/23/2019 8:24 AM CDT): Continue present medical care and treatment Assessment & Plan (05/15/2019 10:02 AM CDT): Continue medical care and treatment Assessment & Plan (03/18/2019 1:22 PM SENIOR PAYROLL MANAGER): Continue medical care and treatment Assessment & Plan (12/16/2018 8:03 AM SENIOR PAYROLL MANAGER): Continue medical care and treatment Assessment & [...] Assessment & Plan (07/18/2017 8:44 PM CDT): [facility] 06/2017 with 95-99% LAD leision near large [...] therapy. Assessment & Plan (04/17/2021 7:40 AM SENIOR PAYROLL MANAGER): Stable Lipitor, aspirin Assessment & Plan (04/20/2020 10:20 AM SENIOR PAYROLL MANAGER): Stable Continue Lipitor control of diabetes Assessment & Plan (10/16/2019 12:30 PM CDT): Continue statin therapy Assessment & Plan (06/23/2019 8:24 AM CDT): Continue present medical care and treatment Assessment & Plan (05/15/2019 10:02 AM CDT): Continue medical care and treatment Assessment & Plan (03/18/2019 1:23 PM SENIOR PAYROLL MANAGER): Continue medical care and treatment Assessment & Plan (12/16/2018 8:03 AM SENIOR PAYROLL MANAGER): Continue medical care and treatment Assessment & [...] 07/18/2017 Assessment & Plan (01/25/2024 11:55 AM SENIOR PAYROLL MANAGER): Impression: Chronic and stable. Plan: Continue atorvastatin. Assessment & Plan (09/20/2023 3:17 PM CDT): Continue statin therapy Assessment & Plan (07/17/2022 9:38 AM CDT): Continue Lipitor Assessment & Plan (04/17/2021 7:40 AM SENIOR PAYROLL MANAGER): Stable Continue Lipitor, aspirin Assessment & Plan (07/19/2017 10:39 AM CDT): Change Simvastatin to Atorvastatin 80mg hs HTN (hypertension) 07/18/2017 Assessment & Plan (09/20/2023 3:17 PM CDT): Continue antihypertensives Assessment & Plan (07/17/2022 9:39 AM CDT): Stable chronic hypertension, continue metoprolol, Assessment & Plan (04/17/2021 7:40 AM SENIOR PAYROLL MANAGER): Stable Continue clinical assessment Assessment & Plan (04/20/2020 10:21 AM SENIOR PAYROLL MANAGER): Stable Continue clinical observation Assessment & Plan (10/16/2019 12:30 PM CDT): Continue medical care and treatment Assessment & Plan (06/23/2019 8:25 AM CDT): Continue present medical care and treatment Assessment & Plan (05/15/2019 10:02 AM CDT): Continue medical care and treatment Assessment & Plan (03/18/2019 1:22 PM SENIOR PAYROLL MANAGER): Continue medical care and treatment Assessment & Plan (12/16/2018 8:03 AM SENIOR PAYROLL MANAGER): Continue medical care and treatment Assessment & [...] underwent a complex coronary intervention procedure at [facility] 07/18/2017 with drug-eluting stents to the [...] underwent a complex coronary intervention procedure at [facility] 07/18/2017 with drug-eluting stents to the [...] therapy Assessment & Plan (01/25/2024 11:54 AM SENIOR PAYROLL MANAGER): Impression: Chronic and stable. Plan: Continue linagliptin, Farxiga Assessment & Plan (09/20/2023 3:16 PM CDT): Continue insulin Assessment & Plan (12/26/2022 12:03 PM SENIOR PAYROLL MANAGER): Impression: Chronic with good glucose control. Plan: Continue insulin Hypercholesterolemia 06/18/2017 DM (diabetes mellitus), type 1 06/18/2017 Essential hypertension 09/12/2016 Overview (04/17/2021): Last Assessment & Plan: Continue medical care and treatment Assessment & Plan (12/26/2022 12:04 PM SENIOR PAYROLL MANAGER): Impression: Chronic and stable. Plan: Continue metoprolol [...] July 17 Acute hypoxemic respiratory failure 06/23/2019 Immunizations Name Administration Dates Next Due Influenza, Unspecified 01/27/2019 Social History Tobacco Use Types Packs/Day Years Used Date Smoking Tobacco: Every Day Cigars Started: 1969; Last attempted to quit: 02/12/2008 Passive Smoke Exposure: Past Smokeless Tobacco: Never Tobacco Cessation:Ready to Q uit: Not Asked; Counseling Given: Not Answered Comments:2023- pack year smoker/ former- smokes 2 cigars [...] often do you attend chur ch or roman catholic services? More than 4 times per year 05/06/2021 Do you belong to any clubs o r organizations such as zoroastrianism groups, unions, fraternal or athletic groups, or [...] place to sleep or slept in a fdc (including now)? No 05/06/2021 Personal Safety Answer Date Recorded Have you ever been in or are you currently in a harmful physical or emotional relationship or is someone making you feel afraid or unsafe? Denies 01/30/2024 Sex and Gender Information Value Date Recorded Sex Assigned at Not on file Legal Sex Male 9:06 PM SENIOR PAYROLL MANAGER Gender Identity Male 10/24/2021 4:07 PM CDT Sexual Orientation Straight 10/24/2021 4: 07 PM CDT Last Filed Vital Signs Vital Sign Reading Time Taken Comments Blood Pressure 123/63 02/27/2024 9:14 AM SENIOR PAYROLL MANAGER Pulse 73 02/27/2024 9:14 AM SENIOR PAYROLL MANAGER Temperature 36.8 ??C (98.2 ??F) 01/25/2024 10:[address] Respiratory Rate 19 01/30/2024 3:10 PM SENIOR PAYROLL MANAGER Oxygen Saturation 100% 02/27/2024 9:14 AM SENIOR PAYROLL MANAGER Inhaled Oxygen Concentration - - Weight 70 kg (154 lb 5.2 oz) 01/30/2024 1:15 PM SENIOR PAYROLL MANAGER Height 182.9 cm (6') 01/25/2024 10:29 AM SENIOR PAYROLL MANAGER Body Mass Index 20.93 01/25/2024 10:29 AM SENIOR PAYROLL MANAGER Plan of Treatment Not on file Medical Devices Implanted Type Area Import Export Clerk Device Identifier Shelf Expiration Date Model / Serial / Lot Dental Implant Mouth Lens Bilateral: Eye Wire Sternum Av Graft Left: Arm System Coronary Stent Xience Alpine Everolimus Eluting Cocr L28 Mm L145 Cm Od2.5 Mm Rapid Exchange Radiopaque 1 Access Port Accepts .014- In Guidewire - [id number] Implanted:Qty: 1 on 07/18/2017 by Mary Esqueda MD at [facility] 03/21/2020 [id number] / / [id number] System Coronary Stent Xience Alpine Everolimus Eluting Cocr L33 Mm L145 Cm Od3 Mm Rapid Exchange Radiopaque 1 Access Port Accepts .014- In Guidewire - [id number] Implanted:Qty: 1 on 07/18/2017 by Mary Esqueda MD at [facility] [employer] [facility] 01/05/2020 [id number] / / [id number] System Coronary Stent Xience Alpine Everolimus Eluting Cocr L15 Mm L145 Cm Od3.5 Mm Rapid Exchange Radiopaque 1 Access Port Accepts .014- In Guidewire - [id number] Implanted:Qty: 1 on 07/18/2017 by Mary Esqueda MD at [facility] [employer] [facility] 02/16/2020 [id number] / / [id number] Synthes 294.55 Schanz 5mm 170mm 50mm Blunt Trocar Point Xlong Screw External - [id number] Implanted:Qty: 2 on 04/28/2021 by Celia Arnett MD at [facility] Right: Leg Synthes I 294.55 / / [employer]/Or tho [id number] Evos 3.5mm 26mm Self Tap Cortex Screw Bone Sterile - [id number] Implanted:Qty: 1 on 05/03/2021 by Samuel Fabian MD at [facility] Right: Leg [employer]/ Ortho [id number] / / [employer]/Or tho [id number] 2.7mm 4.3mm 46mm Lock Self Retain Flat Head Long Bone Small Bone - [id number] Implanted:Qty: 2 on 05/03/2021 by Samuel Fabian MD at [facility] Right: Leg [employer]/ Ortho [id number] / / [employer]Or tho [id number] 2.7mm 4.3mm 44mm Lock Self Retain Flat Head Long Bone Small Bone - [id number] Implanted:Qty: 1 on 05/03/2021 by Samuel Fabian MD at [facility] Right: Leg [employer]/ Ortho [id number] / / [employer]/Or tho [id number] 2.7mm 4.3mm 34mm Lock Self Retain Flat Head Long Bone Small Bone - [id number] Implanted:Qty: 1 on 05/03/2021 by Samuel Fabian MD at [facility] Right: Leg [employer]/ Ortho [id number] / / [employer]/Or tho [id number] 2.7mm 4.3mm 50mm Lock Self Retain Flat Head Long Bone Small Bone - [id number] Implanted:Qty: 2 on 05/03/2021 by Samuel Fabian MD at [facility] Right: Leg [employer]/ Ortho [id number] / / [employer]/Or tho [id number] Evos 3.5mm 38mm Self Tap Lock Screw Bone Sterile - [id number] Implanted:Qty: 1 on 05/03/2021 by Samuel Fabian MD at [facility] Right: Leg [employer]/ Ortho [id number] / / [employer]Or tho [id number] Evos 3.5mm 40mm Self Tap Lock Screw Bone Sterile - [id number] Implanted:Qty: 1 on 05/03/2021 by Samuel Fabian MD at [facility] Right: Leg [employer]/ Ortho [id number] / / [employer]Or tho [id number] Evos 3.5mm 42mm Self Tap Lock Screw Bone Sterile - [id number] Implanted:Qty: 1 on 05/03/2021 by Samuel Fabian MD at [facility] Right: Leg [employer]/ Ortho [id number] / / [employer]Or tho [id number] Evos 130x12.2x2mm 17.4x1.7mm 9 Hole Low Profile Variable Angle - [id number] Implanted:Qty: 1 on 05/03/2021 by Samuel Fabian MD at [facility] Right: Leg [employer]/ Ortho [id number] / / [employer]Or tho [id number] Evos 107x10.9x1.5mm 32x1.4mm 6 Hole Low Profile Variable Angle - [id number] Implanted:Qty: 1 on 05/03/2021 by Samuel Fabian MD at [facility] Right: Leg [employer]/ Ortho [id number] / / [employer]Or tho [id number] - [id number] Implanted:Qty: 2 on 05/03/2021 by Samuel Fabian MD at [facility] Right: Leg [employer]/ Ortho [id number] / / [employer]/Or tho [id number] Evos 3.5mm 48mm Self Tap Cortex Screw Bone Sterile - [id number] Implanted:Qty: 1 on 05/03/2021 by Samuel Fabian MD at [facility] Right: Leg [employer]/ Ortho [id number] / / [employer]Or tho [id number] Evos 3.5mm 28mm Self Tap Cortex Screw Bone Sterile - [id number] Implanted:Qty: 2 on 05/03/2021 by Samuel Fabian MD at [facility] Right: Leg [employer]/ Ortho [id number] / / [employer]/Or tho [id number] Evos 3.5mm 32mm Self Tap Cortex Screw Bone Sterile - [id number] Implanted:Qty: 1 on 05/03/2021 by Samuel Fabian MD at [facility] Right: Leg [employer]/ Ortho [id number] / / [employer]/Or tho [id number] Evos 3.5mm 24mm Self Tap Cortex Screw Bone Sterile - [id number] Implanted:Qty: 1 on 05/03/2021 by Samuel Fabian MD at [facility] Right: Leg [employer]hew/Rich[employer]/ Ortho [id number] / / [employer] [place] Acuseal 4-7mm 45cm Taper Graft Vascular Sterile [id number] - [id number] - [id number] Implanted:Qty: 1 on 09/05/2022 by Hao Moscoso MD at [facility] Left: Olecranon Wl [employer] [id number] 12/21/2024 [id number] / [id number] / Bard Peripheral Vascular Stent Graft Arteriovenous Flared Covera [id number] Ptfe [id number] - [id number] Implanted:Qty: 1 on 09/21/2023 by Ravi Moscoso MD at [facility] Left: Arm [employer] [facility] Vascular [id number] 10/20/2024 [id number] / / [id number] Bard Peripheral Vascular Covera 7mm 8fr 80mm 80cm Cover Helical Strut Thumbwheel [id number] - [id number] Implanted:Qty: 1 on 01/30/2024 by Hao Moscoso MD at [facility] 12/22/2024 [id number] / / [id number] Explanted Type Area Import Export Clerk Device Identifier Shelf Expiration Date Model / Serial / Lot [employer]Rich[employer]/ Ortho [id number] 2.7mm 4.3mm 40mm Lock Self Retain Flat Head Long Bone Small Bone - [id number] Explanted:Qty: 1 on 05/03/2021 by Samuel Fabian MD at [facility] Right: Leg [employer]hew/Richco/Ort ho [id number] / / Procedures Procedure Name Priority Date/Time Associated Diagnosis Comments US HEMODIALYSIS ACCESS Schedule Routine, Read Routine (OP Routine) 02/27/2024 9:23 AM SENIOR PAYROLL MANAGER ESRD (end stage renal disease) on dialysis (HCC) Other specified complication of vascular prosthetic devices, implants and grafts, initial encounter ([facility]) INTRO CATH DIALYSIS CIRCUIT DX ANGRPH FLUOR [id number] Routine 01/30/2024 2:10 PM SENIOR PAYROLL MANAGER ESRD (end stage renal disease) on dialysis (HCC) POCT CREATININE FOR CONTRAST EVALUATION Routine 01/30/2024 1:29 PM SENIOR PAYROLL MANAGER POC BLOOD GAS AND CHEMISTRIES, VENOUS Routine 01/30/2024 1:25 PM SENIOR PAYROLL MANAGER US HEMODIALYSIS ACCESS Schedule Routine, Read Routine (OP Routine) 01/25/2024 10:31 AM SENIOR PAYROLL MANAGER Dependence on renal dialysis (CMS/HCC) (HCC) End stage renal disease (CMS/HCC) (HCC) Underdosing of unspecified drugs primarily affecting the autonomic nervous system, sequela EGFR Timed 09/21/2023 1:54 PM CDT POCT LIPID PANEL Routine 06/20/2022 9:37 AM CDT Need for lipid screening HEPATITIS PANEL, ACUTE Routine 04/10/2022 12:40 PM SENIOR PAYROLL MANAGER HEMOGLOBIN A1C Routine 04/08/2022 11:35 AM SENIOR PAYROLL MANAGER THYROID FUNCTION CASCADE Routine 02/08/2019 12:59 AM SENIOR PAYROLL MANAGER from Last 3 Months or Most Recently Relevant to Health Maintenance Results * US Hemodialysis Access (02/27/2024 9:23 AM SENIOR PAYROLL MANAGER) Anatomical Region Laterality Modality Vascular N/A Ultrasound 02/27/2024 Narrative 02/29/2024 9:06 AM SENIOR PAYROLL MANAGER Amphion Job ID: [id number] Amphion Document ID: [id number] Dictated date/time: [id number] UPPER EXTREMITY VENOUS DUPLEX REASON FOR EXAM AV graft stenosis. FINDINGS The left brachial artery is patent, velocity 132 cm/second. ??Left brachial to axillary AV graft patent. ??In-graft stenosis velocity 362, 440 cm/second. ??Outflow stent patent, velocity 165, 109 cm/sec. OVERALL IMPRESSION Patent left brachial to axillary AV graft with cannulation zone stenosis. Job ID/Internal Job ID: ??[id number] Hao Moscoso MD [facility] US PROCEDURES Final Re sult * INTRO CATH DIALYSIS CIRCUIT DX ANGRPH FLUOR [id number] (01/30/2024 2:10 PM SENIOR PAYROLL MANAGER) Anatomical Region Laterality Modality X-Ray Angiograph y Narrative 01/30/2024 2:15 PM SENIOR PAYROLL MANAGER Please see OpNote for result. Hao Moscoso MD CV CARDIAC CATH PROCEDURES Final Result * (ABNORMAL) POCT creatinine for contrast evaluation (01/30/2024 1:29 PM SENIOR PAYROLL MANAGER) Creatinine POC 7.50(H) 0.80 - 1.30 mg/dL Blood 01/30/2024 1:29 PM SENIOR PAYROLL MANAGER 01/30/2024 1:29 PM SENIOR PAYROLL MANAGER Hao Moscoso MD POINT OF CARE TEST ORDERAB LES Final Result Performing Organization Address City/[facility]/ZIP Co de Phone Number GREG [address] [place] [address] * (ABNORMAL) POC Blood Gas and Chemistries, Venous - (01/30/2024 1:25 PM SENIOR PAYROLL MANAGER) pH,haritha POC 7.38 7.32 - 7.43 pCO2, haritha POC 49 40 - 50 mmHg [facility] pO2,haritha POC 23 mmHg [facility] Comment: Interpretive Data No reference range established. Current interpretive data was last revised 2019. HCO3, haritha (Calc) POC 29 20 - 30 mmol/L [facility] Base excess, haritha POC 3 mmol/L [facility] [facility] Comment: Interpretive Data No reference range established. Current interpretive data was last revised 2019. Hemoglobin, haritha POC 12.9(L) 13.0 - 17.5 g/dL [facility] Hematocrit, haritha POC 38.0(L) 38.9 - 50.3 % [facility] Sodium, haritha POC 140 135 - 145 mmol/L [facility] Potassium, haritha POC 4.9 3.3 - 4.9 mmol/L [facility] Comment: Interpretive Data This method is not able to assess for hemolysis, which may falsely increase potassium concentrations. If further testing is needed to evaluate this result, consider in-laboratory plasma potassium. Current Interpretive Data was last revised on 2021. Glucose, haritha POC 72 70 - 199 mg/dL [facility] Ionized Calcium, haritha POC 4.10(L) 4.50 - 5.10 mg/dL [facility] Blood 01/30/2024 1:25 PM SENIOR PAYROLL MANAGER 01/30/2024 1:25 PM SENIOR PAYROLL MANAGER Hao Moscoso MD LAB POCT ORDERABLES - GONZALO CE Final Result [facility] [place] [address] * US Hemodialysis Access (01/25/2024 10:31 AM SENIOR PAYROLL MANAGER) Anatomical Region Laterality Modality Vascular N/A Ultrasound 01/25/2024 Narrative 01/28/2024 7:24 AM SENIOR PAYROLL MANAGER [place]OR[place] Job ID: [id number] [place]OREM Document ID: [id number] Dictated date/time: [id number] LEFT UPPER EXTREMITY HEMODIALYSIS DUPLEX REASON FOR [...] of in-graft stenosis. Job ID/Internal Job ID: ??[id number] us Hao Moscoso MD [facility] PROCEDURES Final Re sult * (ABNORMAL) eGFR (09/21/2023 1:54 PM CDT) eGFR 6(L) >=60 mL/min/1. 73 m2 Comment: [...] MD LAB BLOOD ORDERABLES Final Resul t Performing Organization Address City/[facility] de Phone Number GREG [address] [facility] Department [place] [address] * POCT lipid panel (06/20/2022 9:37 AM CDT) HDL, POC 50 mg/dL Triglycerides, POC 390 mg/dL LDL Cholesterol POC 127 mg/dL Chol/HDL Ratio, POC 5.1 Non-HDL Cholesterol, POC 205 mg/dL Cholesterol Total, POC 254 mg/dL Capillary blood 06/20/2022 9 :37 AM CDT Bayron Patino MD POINT OF CARE TEST ORDERABL ES Final Result * (ABNORMAL) Hepatitis panel, acute (04/10/2022 12:40 PM SENIOR PAYROLL MANAGER) Hep A IgM Nonreactive Nonreactive [facility] Hep B core IgM Nonreactive Nonreactive [facility] Hep C Ab Reactive(A) Nonreactive [facility] Comment: Reactive for HCV antibodies. ??This may represent current or past HCV infection. Supplemental molecular testing will be automatically performed to determine current infection status in accordance with current CDC screening recommendations. Current interpretive data was last revised on 21 HepBsAg Nonreactive Nonreactive [facility] Blood 04/10/2022 12:4 0 PM SENIOR PAYROLL MANAGER 04/10/2022 1:12 PM SENIOR PAYROLL MANAGER Carmen Feliz MD LAB MICROBIOLOGY - GE NERAL ORDERABLES Final Result Performing Organization Address City/[facility] Co de Phone Number [facility] Department [place] [address] * (ABNORMAL) Hemoglobin A1c (04/08/2022 11:35 AM SENIOR PAYROLL MANAGER) Hgb A1C 6.3(H) 4.0 - 5.6 % [facility] Estimated Average Glucose 134 mg/dL [facility] Comment: The ADA recommends reporting an estimated Average Glucose (eAG) with all Hemoglobin A1c results using the equation derived from a study of 507 normal and diabetic adults. ??Minority populations were underrepresented and children were not included. ?? (Diabetes Care 2020; 43(S1): S66-S76). ??The eAG is not equivalent to a fasting glucose. Blood 04/08/2022 11:3 5 AM SENIOR PAYROLL MANAGER 04/08/2022 12:09 PM SENIOR PAYROLL MANAGER us Carmen Feliz MD LAB BLOOD ORDERABLES Final Result Performing Organization Address [facility] Co de Phone Number [facility] Department [place] [address] * TSH reflex to free T4 (02/08/2019 12:59 AM SENIOR PAYROLL MANAGER) Pathologist [facility] TSH 0.95 0.30 - 4.20 mcIUnit/mL [facility] Blood specimen (specimen) 02/08/2019 12:59 AM SENIOR PAYROLL MANAGER 02/08/2019 1:14 AM SENIOR PAYROLL MANAGER us Julia Muniz NP LAB BLOOD ORDERABLES Final Resu lt Performing Organization Address [facility] Co de Phone Number [facility] [address] Department [place] [address] from Last 3 Months or Most Recently Relevant to Health Maintenance Insurance [facility] Advance Directives For more information, please contact: [phone] * Full Code (Latest Code Status on [...] 2:25 AM 04/14/2019 7:41 PM Care Teams Senior Java Software Engineer Relationship Specialty Start Date End Date Zack Mota MD [address] [place] [id number] PCP - General Family Medicine 02/23/22 Sherrie Aquino DO [address] [place] [phone] 02/12/17 Conchita Prakash DO [address] [place] [address] Family Medicine 07/04/17 Bayron Patino MD [address] [place] [address] Engine Manager Cardiology 06/13/22 Hao Moscoso MD [address] [facility] [address] [place] [address] Surgeon Surgery 09/05/22 Shawanda Craig MD [address] [facility] [address] [place] [address] Referring Physician Nephrology 09/20/23 [place] [address] [place] [address] Consulting Physician Gastroenterology 09/20/23
--- OUTSIDE RECORDS SUMMARY | 2024-03-14 01:34 | XMS_ITS | Patient Health Summary ---
Author Organization [facility] Address [address] [place] [address] Care Team Providers Care Eyeglass Inspector Name Role Phone YoungwandaConchita Primary Care Provider Note from [facility],non-owned Affiliates and Associated Physician Practices is amultiple site organization consisting of ambulatory clinics and hospital sitesin [place], [place], [place] and [place]. This disclosure is being madepursuant to the Care Everywhere program and may not contain all information available regarding this patient. Last updated 17.[facility] Allergies No known active allergies Medications * Be aware that medications may not be up to date on this document. Alwaysverify current medications with the patient. * Cyanocobalamin (VITAMIN B-12) 50 MCG(Started 09/14/2016) Take 50 mcg by mouth once daily * acetaminophen (TYLENOL) 500 MG tablet Take 1,000 mg by mouth every 6 hours as needed * aspirin EC (ECOTRIN) 81 MG tablet Take 81 mg by mouth once daily * atorvastatin (LIPITOR) 80 MG tablet(Started 05/05/2021) Take 80 mg by mouth at bedtime * Biotin 1000 MCG Take 2 mg by mouth once daily * Cholecalciferol 50 MCG (1999) Take 50 mcg by mouth once daily * DULoxetine (CYMBALTA) 30 MG capsule(Started 05/17/2021) Take 30 mg by mouth once daily * DULoxetine (CYMBALTA) 60 MG capsule(Started 07/10/2021) Take 60 mg by mouth once daily * clobetasol (TEMOVATE) 0.05 % ointment(Started 09/08/2021) Apply to rash on Right hand 2-3x daily. 30 day supply. 1 refill by 09/08/2022 Active Problems Problem Noted Date Diagnosed Date ESRD (end stage renal disease) 04/07/2022 Other skin changes 02/26/2017 Other atrophic disorders of skin 02/26/2017 Rash and other nonspecific skin eruption 017 Social History Tobacco Use Types Packs/Day Years [...] Comments Blood Pressure 121/103 04/04/2017 2:43 PM LEVEL GLASS VIAL FILLER Pulse 63 04/04/2017 2:43 PM LEVEL GLASS VIAL FILLER Temperature 36.4 ??C (97.5 ??F) 02/26/2017 9:33 AM CS T Respiratory Rate - - Oxygen Saturation 97% 02/26/2017 9:33 AM LEVEL GLASS VIAL FILLER Inhaled Oxygen Concentration - - Weight 88.5 kg (195 lb) 04/04/2017 2:43 PM LEVEL GLASS VIAL FILLER Height 182.9 cm (6') 04/04/2017 2:43 PM LEVEL GLASS VIAL FILLER Body Mass Index 26.45 04/04/2017 2:43 PM LEVEL GLASS VIAL FILLER Procedures * DERMATOPATHOLOGY(Performed 09/14/2016) Results * PATHOLOGY TISSUE FOR DERMATOLOGY (09/14/2016 12:00 AM CDT) Result CASE: [id number] PATIENT: SIMÓN PRESTON SHERWIN PATHOLOGIC DIAGNOSIS: Left forearm: PSORIASIFORM DERMATITIS WITH EOSINOPHILS (see microscopic description and comment) CLINICAL DATA: CAD vs sponge derm vs 5FU reaction vs PMLE vs DM all impetiginized GROSS DESCRIPTION: Received is one formalin filled container labeled with the patients name and designated left forearm. The specimen consists of a punch biopsy measuring [id number], bisected. Jar 0. MICROSCOPIC DESCRIPTION: There is psoriasiform hyperplasia of the epidermis with focal parakeratosis and spongiosis. ??There is a superficial, mainly lymphohistiocytic inflammatory infiltrate with eosinophils. ??GMS stain fails to highlight any fungal organisms. COMMENT: The histological differential diagnosis includes a contact dermatitis, early / partially treated psoriasis, and a chronic eczematous dermatitis. ??Clinical correlation is recommended. Electronically signed out by Tess Pineda M.D., PhD. 2016 5:40:36PM [facility] Comment: Performed at: Dermatopathology Laboratory [facility] - Department of Dermatology [address] [place] [address], 5th [place] [address] Phone number: [phone] FAX: [phone] Skin (tissue) specimen (specimen) 09/14/2016 09/15/2016 Narrative [facility] - 2016 5:40 PM CDT Shana Mcallister MD Preferred Lab:->Derm-Path Specimen A: Type->Punch ?Site->Left Forearm ?History->65 y/o [place] man with severe photodistributed rash -- looks like chronic actinic derm with superimposed impetigo but history of multiple unknown topicals (Efudex?) and childhood history is very unclear ?Impression->CAD vs spong derm vs 5FU rxn vs PMLE vs DM -- all impetiginized ?Check Margins:->N/A ?Prior Biopsy->N/A Shana Mcallister MD LAB - PATHOLOGY/CYTO LOGY ORDERABLES [facility] [address] [place] [address]. 5th [place] [address], [facility] [phone] Care Teams Eyeglass Inspector Relationship Specialty Start Date End Date Conchita Prakash DO [address] [place] [address] [phone] PCP - General 02/26/17
--- OUTSIDE RECORDS SUMMARY | 2024-03-14 01:34 | XMS_ITS | Referral Summary ---
Author Organization [facility] Address [address] [address] Care Team Providers Care Cigarette Roller Name Role Phone DwainConchita Primary Care Provider Source Comments [facility],non-owned Affiliates and Associated Physician Practices is amultiple site organization consisting of ambulatory clinics and hospital sitesin [place], [place], [place] and [place]. This disclosure is being madepursuant to the Care Everywhere program and may not contain all information available regarding this patient. Last updated 17.[facility] [employer] Allergies No known active allergies Medications * [...] Comments Blood Pressure 121/103 04/04/2017 2:43 PM EXTERIOR WORK HELPER Pulse 63 04/04/2017 2:43 PM EXTERIOR WORK HELPER Temperature 36.4 ??C (97.5 ??F) 02/26/2017 9:33 AM CS T Respiratory Rate - - Oxygen Saturation 97% 02/26/2017 9:33 AM EXTERIOR WORK HELPER Inhaled Oxygen Concentration - - Weight 88.5 kg (195 lb) 04/04/2017 2:43 PM EXTERIOR WORK HELPER Height 182.9 cm (6') 04/04/2017 2:43 PM EXTERIOR WORK HELPER Body Mass Index 26.45 04/04/2017 2:43 PM EXTERIOR WORK HELPER Plan of Treatment Not on file Care Teams Cigarette Roller Relationship Specialty Start Date End Date Conchita Prakash DO [address] [place] [phone] PCP - General 02/26/17
--- OUTSIDE RECORDS SUMMARY | 2024-03-14 01:34 | XMS_ITS | Encounter Summary ---
Author Organization [facility] Address [address] [place] [address] Care Team Providers Care Career Technology Teacher Name Role Phone Sherrie Aquino DO Unavailable [phone] Conchita Prakash DO Unavailable Pepe Campos MD Unavailable [phone] Zack Mota MD Primary Care Provider [phone] Bayron Patino MD Unavailable Hao Mocsoso MD Unavailable [phone] Shawanda Craig MD Unavailable [phone] Jose Mckenzie MD Unavailable [phone] Encounter Details Date Type Department Care Team (Late st Contact Info) Description 07/27/2022 Telephone [facility] Medical Office Building [address] [place] [address] Hao Moscoso MD [facility] [address] [place] [address] Social History Tobacco Use Types Packs/Day Years Used Date Smoking Tobacco: Every Day Cigarettes 0.8 40 Cigars Smokeless Tobacco: Never Comments:smokes a cigar [...] How often do you attend chur or tenriism services? More than 4 times per year [...] often do you have a drink containing alc ohol? Monthly or less 09/22/2021 Q2: How many drinks containi ng alcohol do you have on a typical day when you are drinking? 1 or 2 09/22/2021 Q3: How often do you have si x or more drinks on one occasion? Never 09/22/2021 Overall Financial Resource Strain (CARDIA) Answe r [...] place to sleep or slept in a senior living (including now)? No 05/06/2021 Sex and Gender Information Value Date Recorded Sex Assigned at Not on file Legal Sex Male 9:06 PM BISQUE KILN PLACER Gender Identity Male 10/24/2021 4:07 PM CDT Sexual Orientation Straight 10/24/2021 4: 07 PM CDT documented as of this encounter Plan of Treatment Not on file documented as of this encounter Visit Diagnoses Not on filedocumented in this encounter Care Teams Career Technology Teacher Relationship Specialty Start Date End Date Zack Mota MD [address] [place] [phone] PCP - General Family Medicine 02/23/22 Sherrie Aquino DO [address] [place] [address] 02/12/17 Conchita Prakash DO [address] [place] [address] Family Medicine 07/04/17 Pepe Campos MD [address] [place] [address] Consulting Physician Cardiology 02/09/19 09/19/23 Bayron Patino MD [address] [place] [address] Line Prep Cook Cardiology 06/13/22 Hao Moscoso MD [address] [facility] [address] [address] Surgeon Surgery 09/05/22 Shawanda Craig MD [address] [place] [address] Referring Physician Nephrology 09/20/23 [place] [address] [place] [address] Consulting Physician Gastroenterology 09/20/23 documented as of this encounter
--- OUTSIDE RECORDS SUMMARY | 2024-03-14 01:34 | XMS_ITS | Encounter Summary ---
Author Organization [facility] Address [address] [place] [address]. [place] [address] [place] [address] Care Team Providers Care Administrative Office Specialist Name Role Phone Conchita Prakash DO Primary Care Provider [phone] Zack Mota MD Primary Care Provider [phone] Encounter Details Date Type Department Care Team (Late st Contact Info) Description 07/08/2015 Abstract [facility] Conversion Naty Valle, DESIRAE [address] [place] [address] Social History Tobacco Use Types Packs/Day Years Used Date Smoking Tobacco: Never Assessed Sex and Gender Information Value Date Recorded Sex Assigned at Not on file Legal Sex Male 6:49 PM CDT Gender Identity Not on file Sexual Orientation Not on file documented as of this encounter Miscellaneous Notes * Letter - Naty Valle NP - 07/08/2015 12:00 AM CDT July 08, 2015 Darek Joseph [address] [place] [id number] Dear Darek Joseph, Thank you for choosing [facility] for your health care needs. We appreciate the opportunity to help you maintain your well being. You recently had lab work done. Your results came back normal. Please remember to follow up as discussed at your last appointment. If you have any questions please feel free to call the office at [phone]. Respectfully Yours, Electronically Signed by: Naty Valle Cc: Patient?s Medical Record MBLER TESTER documented in this encounter Plan of Treatment Not on file documented as of this encounter Visit Diagnoses Not on filedocumented in this encounter Additional Health Concerns Infection Onset Date Last Indicated Resolved Time COVID-19 Rule Out 03/31/2022 03/31/2022 03/31/2022 12:07 PM ASSEMBLER TESTER COVID-19 Rule Out 03/31/2022 03/31/2022 03/31/2022 7:28 PM ASSEMBLER TESTER COVID-19 Rule Out 05/13/2022 05/13/2022 05/13/2022 7:40 PM CDT C. difficile 05/13/2022 05/13/2022 08/03/2022 9:15 AM CDT COVID-19 Rule Out 06/04/2023 06/04/2023 06/04/2023 10:09 PM CDT documented as of this encounter Care Teams Administrative Office Specialist Relationship Specialty Start Date End Date Conchita Prakash DO PCP - General FAMILY PRACTICE 02/17/19 01/29/22 Zack Mota MD [address] [place] [address] PCP - General FAMILY PRACTICE 01/30/22 documented as of this encounter
--- OUTSIDE RECORDS SUMMARY | 2024-03-14 01:34 | XMS_ITS ---
Author Organization [facility] Address [address] [place] [address] Care Team Providers Care Tar Leveler Name Role Phone Sherrie Aquino DO Unavailable [phone] Conchita Prakash DO Unavailable [phone] Zack Mota MD Primary Care Provider [phone] Bayron Patino MD Unavailable [phone] Hao Moscoso MD Unavailable [phone] Shawanda Craig MD Unavailable [phone] Jose Mckenzie MD Unavailable Dialysis Access Sites Type Status Location Placement Date Removal Da te AV graft Active Left Upper Arm - Anterior 09/05/2022 Hemodialysis Cath Double Tunneled catheter Right Subclavian Inactive Right Breast - Upper 11/02/2022 Procedures Procedure Name Priority Date/Time Associated Diagnosis Comments US HEMODIALYSIS ACCESS Schedule Routine, Read Routine (OP Routine) 02/27/2024 9:23 AM SHIPPING TECHNICIAN ESRD (end stage renal disease) on dialysis (HCC) Other specified complication of vascular prosthetic devices, implants and grafts, initial encounter ([facility]) INTRO CATH DIALYSIS CIRCUIT DX ANGRPH FLUOR [id number] Routine 01/30/2024 2:10 PM SHIPPING TECHNICIAN ESRD (end stage renal disease) on dialysis (HCC) POCT CREATININE FOR CONTRAST EVALUATION Routine 01/30/2024 1:29 PM SHIPPING TECHNICIAN POC BLOOD GAS AND CHEMISTRIES, VENOUS Routine 01/30/2024 1:25 PM SHIPPING TECHNICIAN HEMODIALYSIS ACCESS Schedule Routine, Read Routine (OP Routine) 01/25/2024 10:31 AM SHIPPING TECHNICIAN Dependence on renal dialysis (CMS/HCC) (HCC) End stage renal disease (CMS/HCC) (HCC) Underdosing of unspecified drugs primarily affecting the autonomic nervous system, sequela EGFR Timed 09/21/2023 1:54 PM CDT POCT LIPID PANEL Routine 06/20/2022 9:37 AM CDT Need for lipid screening HEPATITIS PANEL, ACUTE Routine 04/10/2022 12:40 PM SHIPPING TECHNICIAN HEMOGLOBIN A1C Routine 04/08/2022 11:35 AM SHIPPING TECHNICIAN THYROID FUNCTION CASCADE Routine 02/08/2019 12:59 AM SHIPPING TECHNICIAN from Last 3 Months or Most Recently Relevant to Health Maintenance Allergies No known active allergies Medications ascorbic [...] Indications: Treatment To Prevent Vitamin Deficiency 01/30/20 19 Active blood-glucose meter kit 1 kit 3 (three) times a day 1 kit 04/25/19 23 Active avacopan 10 mg capsule Take 30 [...] as needed for pain or other 09/04/19 Active albuterol HFA (PROVENTIL HFA,VENTOLIN HFA,PROAIR HFA) [...] Problems Problem Noted Date Diagnosed Date Cancer ([facility]) 06/13/2022 Clostridium difficile infection 05/15/2022 06/13/2022 Syncope 05/15/2022 06/13/2022 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 Patino. Answered all questions at this time. Discussed the pt with Dr. Moscoso. Acute respiratory failure 03/31/2022 Closed displaced pilon fract ure of right tibia, initial encounter 05/04/2021 Closed displaced pilon fracture of right tibia 0 04/27/2021 Overview (04/28/2021): Added automatically from request for surgery [id number] Closed displaced pilon fracture of right tibia [...] re-reviewed Assessment & Plan (02/23/2021 12:52 PM SHIPPING TECHNICIAN): The usual differential for pulmonary nodule includes [...] 04/14/2020 Assessment & Plan (04/17/2021 7:39 AM SHIPPING TECHNICIAN): unstable Smoking cessation Assessment & Plan (04/14/2020 12:38 PM SHIPPING TECHNICIAN): The detrimental effects of tobacco use were discussed with the patient. We discussed that smoking is a major risk factor for heart attacks, strokes, chronic obstructive pulmonary disease, and cancer. The importance of discontinuing the use of tobacco was discussed with the patient. Methods to aid in tobacco cessation including the cold [employer] method, nicotine replacement therapy, and pharmacologic therapy were discussed. Electronic cigarettes and acupuncture were also discussed. Plan yearly CT lung screening evaluation Orthostatic hypotension 12/05/2019 Other emphysema 09/24/2019 Assessment & Plan (10/30/2022 3:34 PM CDT): Mild COPD Quit smoking years ago Stable symptoms at this time Continue with prn albuterol Assessment & Plan (04/14/2020 12:37 PM SHIPPING TECHNICIAN): COPD is newly identified. 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 Assessment & Plan (04/17/2021 7:40 AM SHIPPING TECHNICIAN): Stable Continue renal assessment Assessment & Plan (10/16/2019 12:30 PM CDT): Continue clinical observation Assessment & Plan (06/23/2019 8:24 AM CDT): Continue nephrologic evaluation ATN (acute tubular necrosis) ([facility]) 0 Anemia due to stage 3 chronic kidney disease Overview (04/17/2021): Last Assessment & Plan: Continue clinical observation Glomerulonephritis 04/11/2019 Assessment & Plan (04/20/2020 10:20 AM SHIPPING TECHNICIAN): Stable Continue clinical observation Moderate malnutrition ([facility]) 04/09/2019 Paroxysmal atrial fibrillation ([facility]) 020 Overview (03/18/2019): Postop atrial fibrillation Assessment & Plan (04/17/2021 7:40 AM SHIPPING TECHNICIAN): Stable EKG Assessment & Plan (10/16/2019 12:31 PM CDT): Continue clinical observation Assessment & Plan (06/23/2019 8:25 AM CDT): Continue clinical observation Assessment & Plan (05/15/2019 10:02 AM CDT): Anticoagulation and amiodarone therapy Assessment & Plan (03/18/2019 1:32 PM SHIPPING TECHNICIAN): EKG Paroxysmal atrial fibrillation ([facility]) 020 Overview (04/17/2021): Postop atrial fibrillation Last Assessment & Plan: Continue clinical observation S/P CABG x 5 02/12/2019 Abnormal cardiovascular stress test 01/17/2019 Overview (01/17/2019): Added automatically from request for surgery [id number] Abnormal cardiovascular stress test 01/17/2019 Overview (04/17/2021): Overview: Added automatically from request for surgery [id number] CAD (coronary artery disease) 07/18/2017 Overview (03/18/2019): History of coronary artery disease per cardiac catheterization on 06/25/2017 at which time he has identified to have 95% stenosis of the mid LAD with 80% stenosis of a large diagonal. Circumflex artery was patent. The RCA was patent. LV function was reduced with global hypokinesis. Patient underwent a complex coronary intervention procedure at [facility] 07/18/2017 with drug-eluting stents to the [...] 01/22/2019 Assessment & Plan (04/17/2021 7:39 AM SHIPPING TECHNICIAN): Stable Continue Lipitor, aspirin Assessment & Plan (04/20/2020 10:20 AM SHIPPING TECHNICIAN): Stable Continue aspirin, Lipitor Assessment & Plan (10/16/2019 12:30 PM CDT): Continue medical care and treatment Assessment & Plan (06/23/2019 8:24 AM CDT): Continue present medical care and treatment Assessment & Plan (05/15/2019 10:02 AM CDT): Continue medical care and treatment Assessment & Plan (03/18/2019 1:22 PM SHIPPING TECHNICIAN): Continue medical care and treatment Assessment & Plan (12/16/2018 8:03 AM SHIPPING TECHNICIAN): Continue medical care and treatment Assessment & [...] Assessment & Plan (07/18/2017 8:44 PM CDT): [facility] 06/2017 with 95-99% LAD leision near [...] therapy. Assessment & Plan (04/17/2021 7:40 AM SHIPPING TECHNICIAN): Stable Lipitor, aspirin Assessment & Plan (04/20/2020 10:20 AM SHIPPING TECHNICIAN): Stable Continue Lipitor control of diabetes Assessment & Plan (10/16/2019 12:30 PM CDT): Continue statin therapy Assessment & Plan (06/23/2019 8:24 AM CDT): Continue present medical care and treatment Assessment & Plan (05/15/2019 10:02 AM CDT): Continue medical care and treatment Assessment & Plan (03/18/2019 1:23 PM SHIPPING TECHNICIAN): Continue medical care and treatment Assessment & Plan (12/16/2018 8:03 AM SHIPPING TECHNICIAN): Continue medical care and treatment Assessment & [...] 07/18/2017 Assessment & Plan (01/25/2024 11:55 AM SHIPPING TECHNICIAN): Impression: Chronic and stable. Plan: Continue atorvastatin. Assessment & Plan (09/20/2023 3:17 PM CDT): Continue statin therapy Assessment & Plan (07/17/2022 9:38 AM CDT): Continue Lipitor Assessment & Plan (04/17/2021 7:40 AM SHIPPING TECHNICIAN): Stable Continue Lipitor, aspirin Assessment & Plan (07/19/2017 10:39 AM CDT): Change Simvastatin to Atorvastatin 80mg hs HTN (hypertension) 07/18/2017 Assessment & Plan (09/20/2023 3:17 PM CDT): Continue antihypertensives Assessment & Plan (07/17/2022 9:39 AM CDT): Stable chronic hypertension, continue metoprolol, Assessment & Plan (04/17/2021 7:40 AM SHIPPING TECHNICIAN): Stable Continue clinical assessment Assessment & Plan (04/20/2020 10:21 AM SHIPPING TECHNICIAN): Stable Continue clinical observation Assessment & Plan (10/16/2019 12:30 PM CDT): Continue medical care and treatment Assessment & Plan (06/23/2019 8:25 AM CDT): Continue present medical care and treatment Assessment & Plan (05/15/2019 10:02 AM CDT): Continue medical care and treatment Assessment & Plan (03/18/2019 1:22 PM SHIPPING TECHNICIAN): Continue medical care and treatment Assessment & Plan (12/16/2018 8:03 AM SHIPPING TECHNICIAN): Continue medical care and treatment Assessment & [...] underwent a complex coronary intervention procedure at [facility] 07/18/2017 with drug-eluting stents to the [...] underwent a complex coronary intervention procedure at [facility] 07/18/2017 with drug-eluting stents to the [...] therapy Assessment & Plan (01/25/2024 11:54 AM SHIPPING TECHNICIAN): Impression: Chronic and stable. Plan: Continue linagliptin, Farxiga Assessment & Plan (09/20/2023 3:16 PM CDT): Continue insulin Assessment & Plan (12/26/2022 12:03 PM SHIPPING TECHNICIAN): Impression: Chronic with good glucose control. Plan: Continue insulin Hypercholesterolemia 06/18/2017 DM (diabetes mellitus), type 1 06/18/2017 Essential hypertension 09/12/2016 Overview (04/17/2021): Last Assessment & Plan: Continue medical care and treatment Assessment & Plan (12/26/2022 12:04 PM SHIPPING TECHNICIAN): Impression: Chronic and stable. 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 More than 4 times per year 05/06/2021 Do you belong to any clubs o r organizations such as jehovah's witness groups, unions, fraternal or athletic groups, or [...] a senior living (including now)? No 05/06/2021 Personal Safety Answer Date Recorded Have you ever been in or are you currently in a harmful physical or emotional relationship or is someone making you feel afraid or unsafe? Denies 01/30/2024 Sex and Gender Information Value Date Recorded Sex Assigned at Not on file Legal Sex Male 9:06 PM SHIPPING TECHNICIAN Gender Identity Male 10/24/2021 4:07 PM CDT Sexual Orientation Straight 10/24/2021 4: 07 PM CDT Last Filed Vital Signs Vital Sign Reading Time Taken Comments Blood Pressure 123/63 02/27/2024 9:14 AM SHIPPING TECHNICIAN Pulse 73 02/27/2024 9:14 AM SHIPPING TECHNICIAN Temperature 36.8 ??C (98.2 ??F) 01/25/2024 10:[address] Respiratory Rate 19 01/30/2024 3:10 PM SHIPPING TECHNICIAN Oxygen Saturation 100% 02/27/2024 9:14 AM SHIPPING TECHNICIAN Inhaled Oxygen Concentration - - Weight 70 kg (154 lb 5.2 oz) 01/30/2024 1:15 PM SHIPPING TECHNICIAN Height 182.9 cm (6') 01/25/2024 10:29 AM SHIPPING TECHNICIAN Body Mass Index 20.93 01/25/2024 10:29 AM SHIPPING TECHNICIAN Results * US Hemodialysis Access (02/27/2024 9:23 AM SHIPPING TECHNICIAN) Anatomical Region Laterality Modality Vascular N/A Ultrasound 02/27/2024 Narrative 02/29/2024 9:06 AM SHIPPING TECHNICIAN [employer]PI ([employer]) Job ID: [id number] [facility]PI ([employer]) Document ID: [id number] Dictated date/time: [id number] UPPER EXTREMITY VENOUS DUPLEX REASON FOR EXAM AV graft stenosis. FINDINGS The left brachial artery is patent, velocity 132 cm/second. ??Left brachial to axillary AV graft patent. ??In-graft stenosis velocity 362, 440 cm/second. ??Outflow stent patent, velocity 165, 109 cm/sec. OVERALL IMPRESSION Patent left brachial to axillary AV graft with cannulation zone stenosis. Job ID/Internal Job ID: ??[id number] Hao Moscoso MD IMG US PROCEDURES Final Re sult * INTRO CATH DIALYSIS CIRCUIT DX [id number] FLUOR [id number] (01/30/2024 2:10 PM SHIPPING TECHNICIAN) Anatomical Region Laterality Modality X-Ray Angiograph y Narrative 01/30/2024 2:15 PM SHIPPING TECHNICIAN Please see OpNote for result. Hao Moscoso MD CV CARDIAC CATH PROCEDURES Final Result * (ABNORMAL) POCT creatinine for contrast evaluation (01/30/2024 1:29 PM SHIPPING TECHNICIAN) Pathologist [facility] Creatinine POC 7.50(H) 0.80 - 1.30 mg/dL Blood 01/30/2024 1:29 PM SHIPPING TECHNICIAN 01/30/2024 1:29 PM SHIPPING TECHNICIAN Hao Moscoso MD POINT OF CARE TEST ORDERAB LES Final Result [facility] [address] Department [place] [address] * (ABNORMAL) POC Blood Gas and Chemistries, Venous - (01/30/2024 1:25 PM SHIPPING TECHNICIAN) pH,haritha POC 7.38 7.32 - 7.43 pCO2, haritha POC 49 40 - 50 mmHg [facility] pO2,haritha POC 23 mmHg [facility] Comment: Interpretive Data No reference range established. Current interpretive data was last revised 2019. HCO3, haritha (Calc) POC 29 20 - 30 mmol/L [facility] Base excess, haritha POC 3 mmol/L [facility] Comment: Interpretive Data No reference range established. Current interpretive data was last revised 2019. Hemoglobin, haritha POC 12.9(L) 13.0 - 17.5 g/dL [facility] Hematocrit, haritha POC 38.0(L) 38.9 - 50.3 % [facility] Sodium, haritha POC 140 135 - 145 mmol/L [facility] Potassium, haritha POC 4.9 3.3 - 4.9 mmol/L [facility] Comment: Interpretive Data This method is not able to assess for hemolysis, which may falsely increase potassium concentrations. If further testing is needed to evaluate this result, consider in-laboratory plasma potassium. Current Interpretive Data was last revised on 2021. Glucose, haritha POC 72 70 - 199 mg/dL [facility] Ionized Calcium, haritha POC 4.10(L) 4.50 - 5.10 mg/dL [facility] Blood 01/30/2024 1:25 PM SHIPPING TECHNICIAN 01/30/2024 1:25 PM SHIPPING TECHNICIAN Hao Moscoso MD LAB POCT ORDERABLES - GONZALO CE Final Result [facility] [address] Department [place] [address] * US Hemodialysis Access (01/25/2024 10:31 AM SHIPPING TECHNICIAN) Anatomical Region Laterality Modality Vascular N/A Ultrasound 01/25/2024 Narrative 01/28/2024 7:24 AM SHIPPING TECHNICIAN [employer] ([employer]) Job ID: [id number] [employer]PI ([employer]) Document ID: [id number] Dictated date/time: [id number] LEFT UPPER EXTREMITY HEMODIALYSIS DUPLEX REASON FOR [...] of in-graft stenosis. Job ID/Internal Job ID: ??[id number] Hao Moscoso MD IMG US PROCEDURES Final Re sult * (ABNORMAL) [...] 1:54 PM CDT 09/21/2023 1:58 PM CDT us Prosper Kaufman MD LAB BLOOD ORDERABLES Final Resul t [id number] Department [place] [address] * POCT lipid panel (06/20/2022 9:37 AM CDT) Pathologist [facility] HDL, POC 50 mg/dL Triglycerides, POC 390 mg/dL LDL Cholesterol POC 127 mg/dL Chol/HDL Ratio, POC 5.1 Non-HDL Cholesterol, POC 205 mg/dL Cholesterol Total, POC 254 mg/dL Capillary blood 06/20/2022 9 :37 AM CDT Bayron Patino MD POINT OF CARE TEST ORDERABL ES Final Result * (ABNORMAL) Hepatitis panel, acute (04/10/2022 12:40 PM SHIPPING TECHNICIAN) Hep A IgM Nonreactive Nonreactive [facility] Hep B core IgM Nonreactive Nonreactive [facility] Hep C Ab Reactive(A) Nonreactive [facility] Comment: Reactive for HCV antibodies. ??This may represent current or past HCV infection. Supplemental molecular testing will be automatically performed to determine current infection status in accordance with current CDC screening recommendations. Current interpretive data was last revised on 21 HepBsAg Nonreactive Nonreactive [facility] Blood 04/10/2022 12:4 0 PM SHIPPING TECHNICIAN 04/10/2022 1:12 PM SHIPPING TECHNICIAN Carmen Feliz MD LAB MICROBIOLOGY - GE NERAL ORDERABLES Final Result Performing Organization Address City/[facility] Co de Phone Number [facility] [address] [facility] Department [place] [address] * (ABNORMAL) Hemoglobin A1c (04/08/2022 11:35 AM SHIPPING TECHNICIAN) Hgb A1C 6.3(H) 4.0 - 5.6 % [facility] Estimated Average Glucose 134 mg/dL [facility] Comment: The ADA recommends reporting an estimated Average Glucose (eAG) with all Hemoglobin A1c results using the equation derived from a study of 507 normal and diabetic adults. ??Minority populations were underrepresented and children were not included. ?? (Diabetes Care 2020; 43(S1): S66-S76). ??The eAG is not equivalent to a fasting glucose. Blood 04/08/2022 11:3 5 AM SHIPPING TECHNICIAN 04/08/2022 12:09 PM SHIPPING TECHNICIAN Carmen Feliz MD LAB BLOOD ORDERABLES Final Result [facility] Department [place] [address] * TSH reflex to free T4 (02/08/2019 12:59 AM SHIPPING TECHNICIAN) TSH 0.95 0.30 - 4.20 mcIUnit/mL [facility] Blood specimen (specimen) 02/08/2019 12:59 AM SHIPPING TECHNICIAN 02/08/2019 1:14 AM SHIPPING TECHNICIAN us Julia Muniz NP LAB BLOOD ORDERABLES Final Resu lt [facility] [address] Department [place] [address] from Last 3 Months or Most Recently Relevant to Health Maintenance
--- OUTSIDE RECORDS SUMMARY | 2024-03-14 01:34 | XMS_ITS | Encounter Summary ---
Author Organization [facility] Address [address] [place] [address] Care Team Providers Care Hot Braider Name Role Phone Sherrie Aquino DO Unavailable [phone] Conchita Prakash DO Unavailable Pepe Campos MD Unavailable [phone] Zack Mota MD Primary Care Provider [phone] Bayron Patino MD Unavailable Hao Moscoso MD Unavailable [phone] Shawanda Craig MD Unavailable [phone] Jose Mckenzie MD Unavailable Encounter Details Date Type Department Care Team (Late st Contact Info) Description 08/09/2022 [facility] [address] [place] [address] Hao Moscoso MD [address] [place] [address] [address] [place] [address] Social History Tobacco Use Types Packs/Day Years [...] often do you attend chur ch or druze services? More than 4 times per year [...] place to sleep or slept in a skilled nursing (including now)? 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 MACHINE Gender Identity Male 10/24/2021 4:07 PM CDT Sexual Orientation Straight 10/24/2021 4: 07 PM CDT documented as of this encounter Plan of Treatment Not on file documented as of this encounter Visit Diagnoses Not on filedocumented in this encounter Care Teams Hot Braider Relationship Specialty Start Date End Date Zack Mota MD [address] [place] [id number] PCP - General Family Medicine 02/23/22 Sherrie Aquino DO [address] [place] [address] 02/12/17 Conchita Prakash DO [address] [place] [address] Family Medicine 07/04/17 Pepe Campos MD [address] [place] [address] Consulting Physician Cardiology 02/09/19 09/19/23 Bayron Patino MD [address] [place] [address] Blender/Braze Applicator Cardiology 06/13/22 Hao Moscoso MD [address] [facility] [address] [place] [address] Surgeon Surgery 09/05/22 Shawanda Craig MD [address] [facility] [address] [place] [address] Referring Physician Nephrology 09/20/23 [place] [address] [place] [address] Consulting Physician Gastroenterology 09/20/23 documented as of this encounter
--- OUTSIDE RECORDS SUMMARY | 2024-03-14 01:34 | XMS_ITS ---
Author Organization Formerly [facility] Address [address] [place] [address] Care Team Providers Care Drying Frame Operator Name Role Phone Sherrie Aquino DO Unavailable [phone] Conchita Prakash DO Unavailable [phone] Zack Mota MD Primary Care Provider [phone] Bayron Patino MD Unavailable [phone] Hao Moscoso MD Unavailable [phone] Shawanda Craig MD Unavailable [phone] Jose Mckenzie MD Unavailable Active Problems Problem Noted Date Diagnosed Date Cancer ([facility]/HCC) 06/13/2022 Clostridium difficile infection 05/15/2022 06/13/2022 Syncope 05/15/2022 06/13/2022 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 Patino. Answered all questions at this time. Discussed the pt with Dr. Moscoso. Acute respiratory failure 03/31/2022 Closed displaced pilon fract ure of right tibia, initial encounter 05/04/2021 Closed displaced pilon fracture of right tibia 0 04/27/2021 Overview (04/28/2021): Added automatically from request for surgery [id number] Closed displaced pilon fracture of right tibia [...] re-reviewed Assessment & Plan (02/23/2021 12:52 PM STEREO COMPILER): The usual differential for pulmonary nodule includes [...] 04/14/2020 Assessment & Plan (04/17/2021 7:39 AM STEREO COMPILER): unstable Smoking cessation Assessment & Plan (04/14/2020 12:38 PM STEREO COMPILER): The detrimental effects of tobacco use were discussed with the patient. We discussed that smoking is a major risk factor for heart attacks, strokes, chronic obstructive pulmonary disease, and cancer. The importance of discontinuing the use of tobacco was discussed with the patient. Methods to aid in tobacco cessation including the cold [place] method, nicotine replacement therapy, and pharmacologic therapy were discussed. Electronic cigarettes and acupuncture were also discussed. Plan yearly CT lung screening evaluation Orthostatic hypotension 12/05/2019 Other emphysema 09/24/2019 Assessment & Plan (10/30/2022 3:34 PM CDT): Mild COPD Quit smoking years ago Stable symptoms at this time Continue with prn albuterol Assessment & Plan (04/14/2020 12:37 PM STEREO COMPILER): COPD is newly identified. 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 Assessment & Plan (04/17/2021 7:40 AM STEREO COMPILER): Stable Continue renal assessment Assessment & Plan (10/16/2019 12:30 PM CDT): Continue clinical observation Assessment & Plan (06/23/2019 8:24 AM CDT): Continue nephrologic evaluation ATN (acute tubular necrosis) ([facility]) 0 Anemia due to stage 3 chronic kidney disease Overview (04/17/2021): Last Assessment & Plan: Continue clinical observation Glomerulonephritis 04/11/2019 Assessment & Plan (04/20/2020 10:20 AM STEREO COMPILER): Stable Continue clinical observation Moderate malnutrition ([facility]) 04/09/2019 Paroxysmal atrial fibrillation ([facility]) 020 Overview (03/18/2019): Postop atrial fibrillation Assessment & Plan (04/17/2021 7:40 AM STEREO COMPILER): Stable EKG Assessment & Plan (10/16/2019 12:31 PM CDT): Continue clinical observation Assessment & Plan (06/23/2019 8:25 AM CDT): Continue clinical observation Assessment & Plan (05/15/2019 10:02 AM CDT): Anticoagulation and amiodarone therapy Assessment & Plan (03/18/2019 1:32 PM STEREO COMPILER): EKG Paroxysmal atrial fibrillation (CMS/HCC) 020 Overview (04/17/2021): Postop atrial fibrillation Last Assessment & Plan: Continue clinical observation S/P CABG x 5 02/12/2019 Abnormal cardiovascular stress test 01/17/2019 Overview (01/17/2019): Added automatically from request for surgery [id number] Abnormal cardiovascular stress test 01/17/2019 Overview (04/17/2021): Overview: Added automatically from request for surgery [id number] CAD (coronary artery disease) 07/18/2017 Overview (03/18/2019): History of coronary artery disease per cardiac catheterization on 06/25/2017 at which time he has identified to have 95% stenosis of the mid LAD with 80% stenosis of a large diagonal. Circumflex artery was patent. The RCA was patent. LV function was reduced with global hypokinesis. Patient underwent a complex coronary intervention procedure at [facility] 07/18/2017 with drug-eluting stents to the diagonal/ [...] 01/22/2019 Assessment & Plan (04/17/2021 7:39 AM STEREO COMPILER): Stable Continue Lipitor, aspirin Assessment & Plan (04/20/2020 10:20 AM STEREO COMPILER): Stable Continue aspirin, Lipitor Assessment & Plan (10/16/2019 12:30 PM CDT): Continue medical care and treatment Assessment & Plan (06/23/2019 8:24 AM CDT): Continue present medical care and treatment Assessment & Plan (05/15/2019 10:02 AM CDT): Continue medical care and treatment Assessment & Plan (03/18/2019 1:22 PM STEREO COMPILER): Continue medical care and treatment Assessment & Plan (12/16/2018 8:03 AM STEREO COMPILER): Continue medical care and treatment Assessment & [...] Assessment & Plan (07/18/2017 8:44 PM CDT): [facility] 06/2017 with 95-99% LAD leision near [...] therapy. Assessment & Plan (04/17/2021 7:40 AM STEREO COMPILER): Stable Lipitor, aspirin Assessment & Plan (04/20/2020 10:20 AM STEREO COMPILER): Stable Continue Lipitor control of diabetes Assessment & Plan (10/16/2019 12:30 PM CDT): Continue statin therapy Assessment & Plan (06/23/2019 8:24 AM CDT): Continue present medical care and treatment Assessment & Plan (05/15/2019 10:02 AM CDT): Continue medical care and treatment Assessment & Plan (03/18/2019 1:23 PM STEREO COMPILER): Continue medical care and treatment Assessment & Plan (12/16/2018 8:03 AM STEREO COMPILER): Continue medical care and treatment Assessment & [...] 07/18/2017 Assessment & Plan (01/25/2024 11:55 AM STEREO COMPILER): Impression: Chronic and stable. Plan: Continue atorvastatin. Assessment & Plan (09/20/2023 3:17 PM CDT): Continue statin therapy Assessment & Plan (07/17/2022 9:38 AM CDT): Continue Lipitor Assessment & Plan (04/17/2021 7:40 AM STEREO COMPILER): Stable Continue Lipitor, aspirin Assessment & Plan (07/19/2017 10:39 AM CDT): Change Simvastatin to Atorvastatin 80mg hs HTN (hypertension) 07/18/2017 Assessment & Plan (09/20/2023 3:17 PM CDT): Continue antihypertensives Assessment & Plan (07/17/2022 9:39 AM CDT): Stable chronic hypertension, continue metoprolol, Assessment & Plan (04/17/2021 7:40 AM STEREO COMPILER): Stable Continue clinical assessment Assessment & Plan (04/20/2020 10:21 AM STEREO COMPILER): Stable Continue clinical observation Assessment & Plan (10/16/2019 12:30 PM CDT): Continue medical care and treatment Assessment & Plan (06/23/2019 8:25 AM CDT): Continue present medical care and treatment Assessment & Plan (05/15/2019 10:02 AM CDT): Continue medical care and treatment Assessment & Plan (03/18/2019 1:22 PM STEREO COMPILER): Continue medical care and treatment Assessment & Plan (12/16/2018 8:03 AM STEREO COMPILER): Continue medical care and treatment Assessment & [...] underwent a complex coronary intervention procedure at [facility] 07/18/2017 with drug-eluting stents to the diagonal/ [...] underwent a complex coronary intervention procedure at [facility] 07/18/2017 with drug-eluting stents to the diagonal/ [...] therapy Assessment & Plan (01/25/2024 11:54 AM STEREO COMPILER): Impression: Chronic and stable. Plan: Continue linagliptin, Farxiga Assessment & Plan (09/20/2023 3:16 PM CDT): Continue insulin Assessment & Plan (12/26/2022 12:03 PM STEREO COMPILER): Impression: Chronic with good glucose control. Plan: Continue insulin Hypercholesterolemia 06/18/2017 DM (diabetes mellitus), type 1 06/18/2017 Essential hypertension 09/12/2016 Overview (04/17/2021): Last Assessment & Plan: Continue medical care and treatment Assessment & Plan (12/26/2022 12:04 PM STEREO COMPILER): Impression: Chronic and stable. 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 Other Current Plans rituximab (RITUXAN or biosimilar) 1000mg?infusion for Rheumatology* Plan Start Date:05/09/2022 Plan Provider:Denae Adrian MD Linked Problems Microscopic polyangiitis (HC C)Granulomatosis with polyangiitis with renal involvement (HCC) Treatment Medications riTUXimab-abbs (TRUXIMA) IVP B in 500 mL Past Plans Radiation Treatments * No radiation treatments are documented for [facility]. Treatments may have been administered in another system. Lifetime Dose Tracking * Chemical Lifetime Dose Automatic Entry Manual Entr y Radiation 62 mSv 62 mSv 0 mSv Fluoro Time 6.769 minutes 6.769 minutes 0 minutes Air kerma at the reference point (Ka,r) 3,151.17 mGy 3 3.17 mGy 3,118 mGy DLP 3,798 mGycm 3,798 mGycm 0 mGycm CTDIvol 3.02 mGy 3.02 mGy 0 mGy Resolved Problems Problem Noted Date Diagnosed Date [...]
--- NOTE | 2024-03-14 11:22 | WPDANESEPPF ---
Anes - Initial Pre Proc Eval Procedure: Operation Date: 03/14/24 12:00 Proposed Procedures p Laparoscopic Peritoneal Dialysis Catheter Placement - Junito Hernandez MD Date/Time: 03/14/24 11:22 Surgeon: Junito Hernandez MD Pre Op Diagnosis: End Stage Renal Disease Patient Data Age: 73 Gender: M Height: 1.83 m Weight: 68.1 kg Allergies Allergy/AdvReac Type Severity Reaction Status Date / Time No Known Allergies Allergy Verified 03/07/24 09:42 Home Medications ?Medication ?Instructions ?Recorded ?Confirmed ?Type ascorbic acid (vitamin C) 500 mg 500 mg PO DAILY 04/25/19 03/07/24 History tablet aspirin 81 mg tablet,delayed 81 mg PO DAILY 04/25/19 03/07/24 History release (Enteric Coated Aspirin) cholecalciferol (vitamin D3) 50 2,000 unit PO DAILY 04/25/19 03/07/24 History mcg (2,000 unit) chewable tablet srtcizrvmwih-vlywvvnc-ihucwv tablet 1 tablet PO DAILY 04/25/19 03/07/24 History atorvastatin 80 mg tablet 80 mg PO DAILY #90 tabs 06/06/22 03/07/24 Rx blood-glucose sensor (FreeStyle #1 ea 12/20/22 03/05/24 Rx Demetrius 3 Sensor device) albuterol sulfate 90 mcg/actuation See Rx Instructions .Route 05/14/23 03/07/24 Rx aerosol inhaler .COMPLEX #6.7 ea linagliptin 5 mg tablet (Tradjenta) 5 mg PO QAM #90 tabs 09/10/23 03/07/24 Rx metoprolol succinate 25 mg 25 mg PO DAILY #90 tabs 09/10/23 03/07/24 Rx tablet,extended release 24 hr sevelamer carbonate 800 mg tablet 800 mg PO TID #270 tabs 09/10/23 03/07/24 Rx (Renvela) duloxetine 60 mg capsule,delayed 60 mg PO DAILY 10/12/23 03/07/24 History release pregabalin 25 mg capsule (Lyrica) 25 mg PO DAILY #90 caps 10/12/23 03/07/24 Rx tramadol 50 mg tablet 50 mg PO Q6H PRN pain #30 tabs 10/12/23 03/07/24 Rx fluticasone propionate 50 See Rx Instructions .Route 10/22/23 03/07/24 Rx mcg/actuation nasal .COMPLEX #48 mL spray,suspension hydrocodone 5 mg-acetaminophen 325 1 tablet PO QHS PRN pain #30 tabs 11/27/23 03/07/24 Rx mg tablet dapagliflozin propanediol 5 mg See Rx Instructions .Route 01/07/24 03/07/24 Rx tablet (Farxiga) .COMPLEX #90 tabs ferrous sulfate 325 mg (65 mg 65 mg PO DAILY 03/07/24 03/07/24 History iron) tablet Patient hx anesthesia problems: none Family hx anesthesia problems: none Results Review: All pre-operative results and documents have been reviewed as part of the pre-operative evaluation. [facility] Past Medical History Medical History Dialysis patient Anxiety Insomnia Depression Osteoarthritis Lung mass Colon cancer Afib Coronary artery disease involving mary's igloo heart without angina pectoris Hyperlipidemia Hyperproteinemia Hypertension Lupus anticoagulant positive Polyp of colon Superior mesenteric artery stenosis Type 2 diabetes mellitus with diabetic neuropathy, without long-term current use of insulin Surgical History Surgical History Status post ORIF of fracture of ankle Family History Family History Father Diabetes mellitus Hypertension Mother Hypertension Social History Social History Smoking packs per day: 0.5 Smoking cigarettes per day: 10.0 Years smoked: 20 Smoking pack-years: 10.00 Smoking status: Former smoker Tobacco type: cigarettes and cigars Smoking end date: 02/12/03 Additional smoking assessment comments: CURRENTLY SMOKES ONE CIGAR EVERY DAY X 5 YRS Alcohol intake: never Substance use: never Substance use type: does not use Do You Feel Safe in your Home?: Yes Lack of Transportation: No Lack of Food: Never True Current Housing: I Have Housing Concerned About Future Housing: No Difficulty Paying Gas/Electric Bills: No Difficulty Paying for Meds: No Currently Unemployed: No Education: Associate Degree Difficulty w/ Childcare or Family Care: No Living arrangements: with family Occupation/Education: retired Gender identity (if verbalized by the patient): Male Spiritual care concerns: No Agree to blood products: Yes Anes - Eval Final PreProcedure Day of Procedure 03/14/24 11:22 Patient weight: normal Heart: regular rate and rhythm Lungs: decreased breath sounds Airway: Mallampati scale Neurological: alert and oriented Last oral intake: >/= 8 hours ASA classification: IV Emergent: no Anesthetic plan: proceed Anesthesia type and monitoring: general ETT and standard monitoring Results Review: All pre-operative results and documents have been reviewed as part of the pre-operative evaluation. Informed Consent: The patient's anesthetic plan and its attendant risks and benefits were discussed with the patient/family/POA. Questions were solicited and answers provided to the satisfaction of the patient/family/POA.
[2024-03-14] MEDS: LACTATED RINGERS 1,000 ML 30 ML IV CONT (11:30)
[2024-03-14 11:31] LABS: Glucose Point of Care 78 mg/dl (65-105)
[2024-03-14 11:43] LABS: Anion Gap 14 mmol/L (4-12); Blood Urea Nitrogen 39 mg/dL (9-20); Carbon Dioxide 27 mmol/L (22-30); Chloride 98 mmol/L (98-107); Estimated CRCL calculation 9 ml/min; Estimated Glomerular Filt Rate 8; Glucose 84 mg/dL (65-110); Potassium 5.1 mmol/L (3.4-5.0); Sodium 139 mmol/L (137-145)
[2024-03-14 11:46] LABS: Partial Thromboplastin Time 43.4 Seconds (22.3-36.8)
--- NOTE | 2024-03-14 12:42 | WPDHPUPDATE1 ---
History and Physical Update Update Date/Time: 03/14/24 12:42 History and Physical has been reviewed, including an updated exam of the patient. There are NO changes in the patient's condition. Risks, benefits, and alternatives have been discussed and questions answered. Patient agrees to proceed with procedure.
[2024-03-14] MEDS: ceFAZolin 2 GM/D5W 50 ML 2 GM/50 ML BAG IVPB (12:57)
[2024-03-14] MEDS: BUPivacaine HCL 0.5% PF 30 ML VIAL INFILTRATE (13:25)
[2024-03-14] MEDS: LIDO 1%/EPINEPHRINE 1:100,000 50 ML VIAL 30 ML INFILTRATE (13:26)
[2024-03-14] MEDS: HEPARIN SODIUM 5,000 UNITS/ML VIAL 5000 UNITS IRRIGATION (13:36)
[2024-03-14] MEDS: SODIUM CHLORIDE 0.9% IV 500 ML 30 ML IV CONT (13:45)
[2024-03-14 13:51] LABS: Glucose Point of Care 81 mg/dl (65-105)
--- NOTE | 2024-03-14 14:04 | W.PM.PROC2 ---
Procedure Note - Detailed Date of Procedure 03/14/24 Pre-op Diagnosis End Stage Renal Disease, dialysis dependent Post-op Diagnosis Same Procedure Performed Laparoscopic tunneled peritoneal dialysis catheter placement. Surgeon Junito Hernandez MD Microgrinder Operator Divya TEJEDA Anesthesia General Indications Patient is a 73-year-old gentleman who has end-stage renal disease and is on hemodialysis. He has intermittent problems with his hemodialysis access and his left arm and has had multiple episodes of stenting of the graft. He wishes to transition to peritoneal dialysis and so he presents today for placement of a tunnelled peritoneal dialysis catheter. Findings In the abdomen there were no adhesions of the bowel to the anterior abdominal wall. There were a couple of small adhesions of the omentum to the left mid and lower quadrant abdominal wall. No adhesions in the pelvis were noted. Description of Procedure After informed consent was obtained patient brought to the operating room was placed supine position and general endotracheal anesthesia was administered. The abdomen was then prepped and draped usual sterile fashion. A time-out was then performed correctly identifying the patient as well as procedure to be performed. He was given some perioperative IV antibiotics. I 1st started the procedure by entered the abdomen left upper quadrant utilizing a 5mm Optiview port. Once inside the abdomen insufflated to adequate pneumoperitoneum of 15mmHg of CO2. A laparoscopic survey of the abdomen was then performed showing no adhesions of the bowel or omentum into the pelvis. There was 1 adhesion of the omentum to the left lateral mid abdominal wall actually acting as a pexy for the omentum the keep it out of the pelvis. I was able to visualize around this adhesion to see the area the periumbilical region which had no adhesions and in the left lower quadrant abdominal wall with were no adhesions. Just about 2cm lateral to the umbilicus and about 2cm inferior to the umbilicus I made a small transverse incision with a scalpel and then utilized a 5mm port and inserted through the abdominal wall until I tented down the posterior rectus fascia but did not go through the fascia into the above abdomen proper. I then changed my angle of insertion of the port to about 45? downward and advanced about 3 to 4 cm and then punctured through the posterior rectus fascia and peritoneum. The peritoneal dialysis catheter and stylet were then used to place the catheter into the pelvis through the port in the left lower quadrant. As I removed the stylet the catheter started pigtail and advanced the pigtail of the catheter down into the dependent portions of the pelvis. The distal cuff of the catheter was seen to be intra-abdominal and so then I pulled the cuff just a was inside the tip of the port. The tip of the port was then pulled up into the retrorectus space and then the port was removed removed leaving the cuff of the catheter just in the retro rectus space. I then made a another 5mm left lateral abdominal wall incision with the scalpel. I then flushed the catheter with 50cc of saline solution and flushed easily. I then aspirated as well and there was no occlusion. Tunneled the catheter out through the 2nd 5mm incision utilizing the specialized tunneling device came with the catheter. The 2nd subcutaneous cuff was then situated in the subcutaneous tunnel. The catheter was then flushed and about 2 and 50cc of saline solution was instilled into the pelvis. It was not aspirated. The catheter was then flushed 1 last time with 3cc of fully heparinized saline solution [id number]. The catheter was then capped and dressed with sterile gauze and a Tegaderm. The abdomen was then allowed to decompress and the 5mm left upper quadrant trocar port was removed. The 2 small port site incisions were then closed at the skin level utilizing a 4-0 Monocryl suture. The incisions were then cleaned and then sterile dressings were applied. The patient tolerated the procedure well no complications. All sponges, needles, and instrument counts were correct at the end procedure. EBL was _2__cc. The patient was awakened and taken to recovery in stable and satisfactory condition. Implants Tunneled Peritoneal dialysis catheter Estimated Blood Loss 2 Drains No Packing No Pathology None sent Complications No immediate complications Condition Stable Disposition PACU [facility] Billing Surgery - Charge Forward: Surgery Billing
[2024-03-14] MEDS: ONDANSETRON INJ 4 MG/2 ML VIAL IV PUSH (14:19)
[2024-03-14] MEDS: oxyCODONE HCL (*CRX) 5 MG TAB IR PO (14:47)
== END 2024-03-14 15:54 | disposition home or self-care (01) ==
PROVIDERS: Anesthesiology; PCP Nurse Practitioner Family; Visit Provider Surgery
PROC: 0WHG43Z Insertion of Infusion Device into Peritoneal Cavity, Percutaneous Endoscopic Approach (ICD-10-PCS; CPT 49324; principal; 2024-03-14 12:00)
DX: I12.0 Hypertensive chronic kidney disease with stage 5 chronic kidney disease or end stage renal disease (principal); E11.22 Type 2 diabetes mellitus with diabetic chronic kidney disease; N18.6 End stage renal disease; Z99.2 Dependence on renal dialysis
CPT/HCPCS: 49324; 36415; 80048; 82948; 85730; A9270; J0690; J1644; J2004; J2405; J2704; J3010; J7040; J7120

== ENCOUNTER 2024-12-27 09:04 | Emergency (ER) | payer MEDICARE, SELFPAY ==
[2024-12-27 09:05] VITALS: BP 149/57; PULSE 101; RESP 18; TEMP 36.4; O2SAT 100
--- NOTE | 2024-12-27 09:21 | ED_ITS ---
HPI - Recheck/Abnormal Lab/Rx General Chief Complaint: Recheck/Abnormal Lab/Rx Stated Complaint: g-tube out Time Seen by Provider: 12/27/24 09:18 Source: patient and EMS Mode of arrival: EMS Limitations: no limitations History of Present Illness HPI narrative: This is a 74-year-old male with history of ESRD on home peritoneal dialysis who presents the ED for a cut PD catheter. Patient states that his was trying to dress the PD catheter site and was cutting table when she accidentally cut through the PD catheter prompting her to call EMS. Patient last had dialysis last night and went well as far as he knows. [facility] [place]. Denies any other symptoms at this time. PD catheter was placed by Dr. Bell here. Related Data Home Medications ?Medication ?Instructions ?Recorded ?Confirmed ?Last Taken ?Type ascorbic acid (vitamin C) 500 mg 500 mg PO DAILY 04/2412/11/24 11/28/21 History tablet aspirin 81 mg tablet,delayed 81 mg PO DAILY 04/25/19 1 03/12/24 History release (Enteric Coated Aspirin) cholecalciferol (vitamin D3) 50 2,000 unit PO DAILY 12/11/24 11/28/21 History mcg (2,000 unit) chewable tablet vszemkltargl-flpcexjv-tgvdfg tablet 1 tablet PO DAILY 04/25/19 12/11/24 03/11/24 History duloxetine 60 mg capsule,delayed 60 mg PO DAILY 12/11/24 Unknown History release ferrous sulfate 325 mg (65 mg 65 mg PO DAILY 03/07/24 12/11/24 Unknown History iron) tablet Allergies Allergy/AdvReac Type Severity Reaction Status Date / Time No Known Allergies Allergy Verified 12/26/24 11:17 Review of Systems 2 Review of Systems: Gen.: Denies fevers or chills Eyes: Denies eye pain or visual change ENT: Denies congestion Respiratory: Denies shortness of breath or cough CV: Denies chest pain or palpitations GI: Denies abdominal pain nausea, emesis or diarrhea denies burning, urgency, frequency or hematuria Musculoskeletal: Denies back pain or muscle pain Neuro: Denies numbness, tingling, weakness or focal weakness Skin: Denies rash Except as documented, all other systems reviewed and negative FOR[facility]LY [facility] Past Medical History Medical History Dialysis patient Anxiety Insomnia Depression Osteoarthritis Lung mass Colon cancer Afib Coronary artery disease involving [place] heart without angina pectoris Hyperlipidemia Hyperproteinemia Hypertension Lupus anticoagulant positive Polyp of colon Superior mesenteric artery stenosis Type 2 diabetes mellitus with diabetic neuropathy, without long-term current use of insulin Surgical History Surgical History Status post ORIF of fracture of ankle Family History Family History Father Diabetes mellitus Hypertension Mother Hypertension Social History Social History Smoking packs per day: 0.5 Smoking cigarettes per day: 10.0 Years smoked: 20 Smoking pack-years: 10.00 Smoking status: Former smoker Tobacco type: cigarettes and cigars Smoking end date: 02/12/03 Additional smoking assessment comments: CURRENTLY SMOKES ONE CIGAR EVERY DAY X 5 YRS Alcohol intake: never Substance use: never Substance use type: does not use Do You Feel Safe in your Home?: Yes Lack of Transportation: No Lack of Food: Never True Current Housing: I Have Housing Concerned About Future Housing: No Difficulty Paying Gas/Electric Bills: No Difficulty Paying for Meds: No Currently Unemployed: No Education: Associate Degree Difficulty w/ Childcare or Family Care: No Living arrangements: with family Occupation/Education: retired Gender identity (if verbalized by the patient): Male Spiritual care concerns: No Agree to blood products: Yes Exam 2 Narrative: APPEARANCE: No acute distress, nontoxic, resting in bed EYES: EOMI HEENT: Normocephalic, atraumatic, OMM RESPIRATORY: No respiratory distress Clear to auscultation bilaterally with no rhonchi wheezing or rales. CARDIOVASCULAR: Regular rate and rhythm without murmurs rubs or gallops. ABDOMINAL: Soft, nontender, nondistended, no rebound or guarding. Tunneled dialysis catheter to the left lower quadrant that has been severed, there is approximately 2 cm protruding from the skin. MUSCULOSKELETAl: Moves all extremities. No clubbing, cyanosis or edema. NEURO: Awake and alert. Following commands, speech normal, no focal deficits SKIN:: Warm, dry. No rashes lesions or abrasions PSYCHIATRIC: Normal affect/mood, Course Vital Signs Vital signs: Vital Signs Temperature 97.6 F 12/27/24 09:05 Pulse Rate 101 H 12/27/24 09:05 Respiratory Rate 18 12/27/24 09:05 Blood Pressure 149/57 H 12/27/24 09:05 Pulse Oximetry 100 12/27/24 09:05 Oxygen Delivery Room Air 12/27/24 09:05 Temperature 97.6 F 12/27/24 09:05 Pulse Rate 90 12/27/24 20:48 Respiratory Rate 18 12/27/24 20:48 Blood Pressure 143/74 H 12/27/24 20:48 Pulse Oximetry 97 12/27/24 20:48 Oxygen Delivery Room Air 12/27/24 09:05 MDM - Recheck/Abnormal Lab/Rx MDM Narrative Medical decision making narrative: 74-year-old male Presenting for peritoneal dialysis catheter problem. On initial evaluation patient was in no acute distress afebrile, hemodynamic stable. Differentials include but are not limited to: Peritoneal dialysis catheter severed, peritoneal dialysis catheter problem, electrolyte abnormality Notable exam findings: Peritoneal dialysis catheter in the left lower quadrant with only about 2 cm of it exposed with no connection tubing available I discussed the case with on-call surgery, Dr. Steele, he does not do peritoneal dialysis catheters here and he is not aware of anyone that does this weekend so he did recommend transfer. I initially tried to transfer the patient to the [facility] system but there was significant delays in this so after speaking with the patient, we did switch to the [facility] system. They spoke with a ballpoint pen cartridge tester at [facility] who was initially recommending antibiotics and close follow-up with his PD nurse, however, this did not seem appropriate to me. I discussed the case with our on-call Nephrology, Dr. Craig, continue to recommend the patient be transferred as there is no dialysis that can be done through the PD and a PD catheter cannot be placed in an inpatient setting that he is aware of. Spoke with the transfer line again Dr. Valencia, IM at [facility], will accept the patient as a direct admit. Patient was transferred in a stable condition. Medical Records Attestation: I reviewed the patient's medical records. Medical records narrative: Tunneled peritoneal dialysis catheter placed in April of this year. Lab Data Attestation: I reviewed the patient's lab results. 12/27/24 17:34 12/27/24 17:34 Labs: Lab Results 12/27/24 Range/Units 17:34 WBC 9.2 (4.5-10.0) K/mm3 RBC 3.43 L (4.6-6.20) M/mm3 Hgb 9.2 L (14.0-18.0) g/dL Hct 28.9 L (42.0-52.0) % MCV 84.3 (80-100) fl MCH 26.8 (26-34) pg MCHC 31.8 L (32-36) g/dl RDW 13.4 (11.5-14.5) % Plt Count 247 (150-375) k/mm3 MPV 8.8 (7.4-10.4) fl Immature Gran % (Auto) 0.7 H (0-0.5) % Neut % (Auto) 59.3 (45.5-73.1) % Lymph % (Auto) 27.2 (18.3-44.2) % Ector % (Auto) 7.8 (2.6-8.5) % Eos % (Auto) 4.2 (0-4.4) % Baso % (Auto) 0.8 (0.2-1.2) % Lymph # (Auto) 2.50 (0.9-3.2) K/mm3 Ector # (Auto) 0.7 H (0.1-0.6) K/mm3 Eos # (Auto) 0.4 H (0-0.3) K/mm3 Baso # (Auto) 0.1 (0.0-0.1) K/mm3 Abs Immat Gran (auto) 0.06 H (0.00-0.031) K/mm3 Absolute Neuts (auto) 5.5 (1.3-6.7) K/mm3 Absolute Nucleated RBC 0.000 (0.0-0.012) K/mm3 Nucleated RBC % 0.0 (0.0-0.2) % Sodium 132 L (137-145) mmol/L Potassium 3.2 L (3.4-5.0) mmol/L Chloride 95 L (98-107) mmol/L Carbon Dioxide 22 (22-30) mmol/L Anion Gap 15 H (4-12) mmol/L BUN 61 H D (9-20) mg/dL Creatinine 13.25 H (0.7-1.3) mg/dL Estim Creat Clear Calc 4 ml/min Estimated GFR 4 L (59 - ) Glucose 108 (65-110) mg/dL Calcium 8.9 (8.4-10.2) mg/dL Phosphorus 9.9 H (2.5-4.5) mg/dL Albumin 3.4 L (3.5-5.1) g/dL Discharge Plan Discharge Clinical Impression: ESRD (end stage renal disease) on dialysis Disorder of peritoneal dialysis catheter Qualifiers: Encounter type: initial encounter Qualified Code(s): T85.9XXA - Unspecified complication of internal prosthetic device, implant and graft, initial encounter Patient Disposition: Acute Care Hospital Condition: Stable Patient Language: Georgian Prescriptions: No Action ascorbic acid (vitamin C) 500 mg tablet 500 mg PO DAILY aspirin [Enteric Coated Aspirin] 81 mg tablet,delayed release (DR/EC) 81 mg PO DAILY [id number] Tablet 1 tablet PO DAILY cholecalciferol (vitamin D3) 2,000 unit tablet,chewable 2,000 unit PO DAILY atorvastatin 80 mg tablet 80 mg PO DAILY Qty: 90 1RF duloxetine 60 mg capsule,delayed release(DR/EC) 60 mg PO DAILY (DME) FreeStyle Demetrius 3 Sensor Device See Rx Instructions .Route Qty: 1 4RF Rx Instructions: As directed Tradjenta 5 mg tablet 5 mg PO QAM Qty: 90 1RF sevelamer carbonate [Renvela] 800 mg tablet 800 mg PO TID Qty: 270 0RF Rx Instructions: must administer with a meal/food metoprolol succinate 25 mg tablet extended release 24 hr 25 mg PO DAILY Qty: 90 0RF ferrous sulfate 325 mg (65 mg iron) tablet 65 mg PO DAILY fluticasone propionate 50 mcg/actuation spray,suspension See Rx Instructions .ROUTE .COMPLEX Qty: 48 1RF Dose Instruction: 2 SPRAY INTRANASALLY DAILY ADMINISTER INTO EACH NOSTRIL Rx Instructions: 2 SPRAY INTRANASALLY DAILY ADMINISTER INTO EACH NOSTRIL dapagliflozin propanediol [Farxiga] 5 mg tablet See Rx Instructions .ROUTE .COMPLEX Qty: 90 1RF Dose Instruction: TAKE 1 TABLET BY MOUTH EVERY DAY Rx Instructions: TAKE 1 TABLET BY MOUTH EVERY DAY pregabalin [Lyrica] 75 mg capsule 75 mg PO BID Qty: 60 2RF tramadol 50 mg tablet 50 mg PO Q6H PRN (Reason: pain) Qty: 30 2RF doxycycline hyclate 100 mg capsule 100 mg PO BID Qty: 20 0RF albuterol sulfate 90 mcg/actuation HFA aerosol inhaler See Rx Instructions .ROUTE .COMPLEX Qty: 6.7 1RF Dose Instruction: INHALE 2 PUFFS EVERY 4 HOURS NEEDED FOR SHORTNESS OF BREATH OR FOR WHEEZE Patient Comments: WAS GIVEN WHEN HE HAD COVID Rx Instructions: INHALE 2 PUFFS EVERY 4 HOURS NEEDED FOR SHORTNESS OF BREATH OR FOR WHEEZE amlodipine 5 mg tablet 5 mg PO DAILY Qty: 90 0RF Follow-up/Referrals: Melba Kearns APRN [Primary Care Provider, Family Practice]
--- OUTSIDE RECORDS SUMMARY | 2024-12-27 09:25 | XMS_ITS | Clinical Summary ---
Author Organization [facility] Address [address] [place] [address] Care Team Providers Care Terminal Make Up Operator Name Role Phone Dwain Conchita Primary Care Provider [phone] Allergies No known active allergies Medications metFORMIN [...] 75 06/18/2017 1:53 PM CDT Temperature 36.8 C (98.2 F) 06/18/2017 1:53 PM CDT Respiratory Rate 18 06/18/2017 1:53 PM CDT [...] 09/17/1969 LDL CHOLESTEROL ANNUAL 09/17/1969 PNEUMOCOCCAL VACCINE 50+ YEARS (1 of 2 - PCV) 09/17/18 71 COLORECTAL SCREENING 09/17/1996 Colorectal Cancer Screening 09/17/1996 FIT-DNA Q 3 years 09/17/1996 FIT/FOBT Q 1 year 09/17/1996 Flex Sig/CT Colonography Q 5 years 09/17/1996 RSV VACCINE (60+ or ) (1 - Risk 50-74 years 1-dose series) 09/17/2001 ZOSTER VACCINE (1 of 2) 09/17/2001 DIABETES HBA1C Q 6 MONTHS 10/06/2022 04/08/2022 INFLUENZA VACCINE (#1) 2024 12/05/2019 DTAP/TDAP/TD VACCINES (2 - Td or Tdap) 12/03/2029 Insurance [employer] Care Teams Terminal Make Up Operator Relationship Specialty Start Date End Date Conchita Prakash DO [address] [place] [phone] PCP - General Family Practice 06/18/17
--- NOTE | 2024-12-27 09:30 | PC.NURSE ---
peritoneal dialysis catheter clamped with hemostat with dressing applied around area.
[2024-12-27 12:31] VITALS: BP 140/79; PULSE 51; RESP 20; O2SAT 98
[2024-12-27 17:36] VITALS: BP 116/66; PULSE 97; RESP 20; O2SAT 99
[2024-12-27 17:43] LABS: Hematocrit 28.9 % (42.0-52.0); Hemoglobin 9.2 g/dL (14.0-18.0); Immature Granulocyte Percent A 0.7 % (0-0.5); Lymphocytes Absolute Auto 2.50 K/mm3 (0.9-3.2); Mean Corpuscular HGB Conc 31.8 g/dl (32-36); Mean Corpuscular Hemoglobin 26.8 pg (26-34); Mean Corpuscular Volume 84.3 fl (80-100); Nucleated Red Blood Cells Absolute Auto 0.000 K/mm3 (0.0-0.012); Nucleated Red Blood Cells Perc 0.0 % (0.0-0.2); Platelet Count Result 247 k/mm3 (150-375); Red Blood Count 3.43 M/mm3 (4.6-6.20); White Blood Count 9.2 K/mm3 (4.5-10.0)
[2024-12-27 17:52] LABS: Albumin Level 3.4 g/dL (3.5-5.1); Anion Gap 15 mmol/L (4-12); Blood Urea Nitrogen 61 mg/dL (9-20); Calcium 8.9 mg/dL (8.4-10.2); Carbon Dioxide 22 mmol/L (22-30); Chloride 95 mmol/L (98-107); Estimated CRCL calculation 4 ml/min; Estimated Glomerular Filt Rate 4; Glucose 108 mg/dL (65-110); Potassium 3.2 mmol/L (3.4-5.0); Sodium 132 mmol/L (137-145)
[2024-12-27 19:26] VITALS: BP 119/58; PULSE 91; RESP 18; O2SAT 97
--- NOTE | 2024-12-27 19:39 | PC.NURSE ---
Report received from JA Stearns. Assumed care of patient at this time. Patient waiting for transport to [facility].
[2024-12-27 20:48] VITALS: BP 143/74; PULSE 90; RESP 18; O2SAT 97
== END 2024-12-27 21:11 | disposition short-term general hospital (02) ==
PROVIDERS: Emergency Provider Student in an Organized Health Care Education/Training Program; PCP Nurse Practitioner Family
DX: T85.898A Other specified complication of other internal prosthetic devices, implants and grafts, initial encounter (principal); E11.22 Type 2 diabetes mellitus with diabetic chronic kidney disease; I12.0 Hypertensive chronic kidney disease with stage 5 chronic kidney disease or end stage renal disease; N18.6 End stage renal disease; Z99.2 Dependence on renal dialysis; Z85.038 Personal history of other malignant neoplasm of large intestine; E78.5 Hyperlipidemia, unspecified; D68.62 Lupus anticoagulant syndrome; Z87.891 Personal history of nicotine dependence
CPT/HCPCS: 36415; 80069; 85025; 99285